=== PATIENT | female | born 1965 | race Caucasian/White ===

== ENCOUNTER → 2017-03-29 | Outpatient (CLI) | payer BC ==
[2017-03-29 10:12] LABS: Basophils # (A) 0.1 k/uL (0-0.2); Basophils % (A) 1 %; CHCM 33.3; Eosinophils # (A) 0.2 k/uL (0-0.7); Eosinophils % (A) 3 %; HCT 42.5 % (34.0-46.0); HGB 13.8 gm/dL (11.4-16.0); Luc # (Auto) 0.19; Luc % (Auto) 3; Lymphocytes # (A) 1.9 k/uL (1.0-4.8); Lymphocytes % (A) 25 %; MCH 29.4 pg (25.0-35.0); MCHC 32.4 g/dL (31.0-37.0); MCV 90.5 fL (80.0-100.0); Mean Platelet Volume 6.9; Monocytes # (A) 0.5 k/uL (0-1.0); Monocytes % (A) 7 %; Neutrophils # (A) 4.5 k/uL (1.3-7.7); Neutrophils % (A) 62 %; RBC 4.69 m/uL (3.80-5.40); WBC 7.4 k/uL (3.8-10.6); WBC (Perox) 6.86
[2017-03-29 10:16] LABS: ALT 41 U/L (9-52); AST 19 U/L (14-36); Alkaline Phosphatase 111 U/L (38-126); Anion Gap 11 mmol/L; Blood Urea Nitrogen 17 mg/dL (7-17); C Reactive Protein 22.6 mg/L (<10.0); Calcium 10.5 mg/dL (8.4-10.2); Carbon Dioxide 28 mmol/L (22-30); Chloride 102 mmol/L (98-107); Cholesterol 192 mg/dL (<200); Glucose 106 mg/dL (74-99); HDL Cholesterol 46 mg/dL (40-60); Non-African American GFR(MDRD) >60 (>60 ml/min/1.73 sqM); Potassium 4.3 mmol/L (3.5-5.1); Sodium 141 mmol/L (137-145); Total Bilirubin 0.7 mg/dL (0.2-1.3); Total Protein 7.4 g/dL (6.3-8.2); Triglycerides 210 mg/dL (<150)
[2017-03-29 10:17] LABS: Rheumatoid Factor, Qnt 35 IU/mL (<12)
[2017-03-29 11:24] LABS: Erythrocyte Sedimentation Rate 13 mm/hr (0-20)
[2017-03-29 17:05] LABS: Urine Creatinine 167.6 mg/dL
[2017-03-30 00:04] LABS: Hemoglobin A1C 5.8 % (4.2-6.1)
[2017-03-31 10:51] LABS: ANA w/Reflex to Titer NEGATIVE (NEGATIVE); Cyclic Citrull Pep IgG Unit <0.5 U/mL; Cyclic Citrullinated Pep IgG NEGATIVE (NEGATIVE)
== END | disposition home or self-care (01) ==
LOC: LABWHC1 09:29
PROVIDERS: ATTEND Internal Medicine
DX: E11.9 Type 2 diabetes mellitus without complications (principal); M06.9 Rheumatoid arthritis, unspecified; E55.9 Vitamin D deficiency, unspecified; E21.3 Hyperparathyroidism, unspecified; R53.83 Other fatigue
CPT/HCPCS: 36415; 80053; 80061; 82043; 82306; 82570; 83036; 83970; 84443; 85025; 85652; 86038; 86140; 86200; 86431

== ENCOUNTER → 2017-08-21 | Outpatient (CLI) | payer BC ==
[2017-08-21 10:25] LABS: Ionized Calcium 5.5 mg/dL (4.5-5.3)
== END | disposition home or self-care (01) ==
LOC: LABWHC1 08:04
PROVIDERS: ATTEND Internal Medicine Endocrinology, Diabetes & Metabolism
DX: E21.0 Primary hyperparathyroidism (principal)
CPT/HCPCS: 36415; 82306; 82310; 82330; 83970

== ENCOUNTER → 2017-11-25 | Outpatient (CLI) | payer BC ==
[2017-11-25 10:16] VITALS: BP 126/88; PULSE 81; TEMP 97.8; BMI 37.9
--- NOTE | 2017-11-25 10:58 | P.HPOB ---
History of Present Illness H&P Date: 11/25/17 Chief Complaint: Patient is here for her routine gynecologic exam and mammogram. This is a 52-year-old with an LMP of 1998. She is status post MARY ANN and left oophorectomy for benign reasons. The patient is without gynecologic complaints. Review of Systems She has lost 12 pounds over the last year. She states this has been after her knee replacement surgery. She denies respiratory, cardiac, or G.I. problems. Past Medical History Past Medical History: Hypertension, Rheumatoid Arthritis (RA) Additional Past Medical History / Comment(s): Pre-diabetic, borderline sleep apnea-no tx. for, glaucoma, elevated calcium due to hyperparathyroidism, recent trouble w/elevated heart rate but PCP put her on xanax & is much better per pt. , current tx. for UTI History of Any Multi-Drug Resistant Organisms: None Reported Past Surgical History: Appendectomy, Cholecystectomy, Hysterectomy, Joint Replacement (Left knee replacement in 2017), Orthopedic Surgery, Tubal Ligation Additional Past Surgical History / Comment(s): tubal reversal & then another tubal, arthroscopy knee, carpal tunnel repair Additional Past Anesthesia/Blood Transfusion Reaction / Comment(s): slow to wake up, hx. of "fever" after 2 surgeries-once as kid, other w/6 hour tubal reversal-low grade temp., thought was from anesthesia, has never heard of malignant hyperthermia & no family hx. of, mom has low O2 sats after surg. Past Psychological History: No Psychological Hx Reported Smoking Status: Never smoker Past Alcohol Use History: Rare (5 per year) Past Drug Use History: None Reported - Past Family History Mother Family Medical History: Cancer (Breast cancer at age 78.) Additional Family Medical History / Comment(s): breast cancer Father Family Medical History: COPD, Dementia Additional Family Medical History / Comment(s): Parkinson's disease Medications and Allergies Home Medications Medication Instructions Recorded Confirmed Type Acetaminophen Tab [Tylenol Tab] 1,000 mg PO Q6HR PRN 11/11/15 11/25/17 History Cetirizine HCl [Zyrtec] 10 mg PO DAILY 11/11/15 11/25/17 History Cholecalciferol [Vitamin D3] 2,000 unit PO DAILY 11/11/15 11/25/17 History Hydroxychloroquine Sulfate 200 mg PO BID 11/11/15 11/25/17 History [Plaquenil] Losartan Potassium [Cozaar] 100 mg PO DAILY 11/11/15 11/25/17 History amLODIPine [Norvasc] 5 mg PO DAILY 11/11/15 11/25/17 History metFORMIN HCL [Glucophage Xr] 500 mg PO BID 11/11/15 11/25/17 History Famotidine [Pepcid] 20 mg PO DAILY 08/22/17 11/25/17 History Furosemide [Lasix] 20 mg PO DAILY 08/22/17 11/25/17 History Timolol 0.5% Ophth Soln [Timoptic 1 drop BOTH EYES BID 08/22/17 11/25/17 History 0.5% Ophth Soln] Metoprolol Tartrate 0.5 tab PO DAILY 11/25/17 11/25/17 History Allergies Allergy/AdvReac Type Severity Reaction Status Date / Time shellfish derived [Shellfish] Allergy Anaphylaxis Verified 11/25/17 10:19 venom-honey bee Allergy Anaphylaxis Verified 11/25/17 10:19 [bee venom (honey bee)] codeine AdvReac Nausea & Verified 11/25/17 10:19 Vomiting labetalol AdvReac "pinging Verified 11/25/17 10:19 in head" metal brittany AdvReac fever Uncoded 11/25/17 10:19 Exam - Vital Signs Vital signs: Vital Signs Temp Pulse BP 11/25/17 10:06 97.8 F 81 126/88 Intake and Output 11/24/17 11/25/17 11/25/17 22:59 06:59 14:59 Other: Weight 103.419 kg Height 5'5", BMI 37.9. This is a well-developed well-nourished white female who is alert and oriented times 3 in no acute distress. HEENT: Within normal limits. NECK: Supple without mass or thyromegaly. CHEST AND LUNGS: Clear to auscultation. HEART: Regular rate and rhythm. BREASTS: Are without mass or discharge. AXILLARY EXAM: Negative for adenopathy. BACK: Negative for CVA tenderness. ABDOMEN: Soft, nontender, without palpable masses. PELVIC EXAM: External genitalia appears normal with minimal atrophy. Vagina appears normal with minimal atrophy. There is no evidence of prolapse. Bimanual examination is negative for mass or tenderness. RECTAL EXAM: Rectovaginal exam is negative for mass or tenderness and is negative for occult blood. EXTREMITIES: Nontender. IMPRESSION: 1. 52-year-old menopausal females with status post MARY ANN and left oophorectomy for benign reasons. 2. History of osteopenia PLAN: 1. Pap smears have been discontinued 2. Self breast examination was discussed. 3. Screening mammogram will be done today. 4. Osteoporosis prevention was discussed. Bone density testing will be done through Dr. Cindy Zaldivar as she has done in the past. 5. I have recommended screening colonoscopy based on her age. She states she will discuss this with Dr. Anaya. 6. She will return in one year.
--- NOTE | 2017-11-26 09:39 | MM ---
Reason for exam: screening (asymptomatic). Last mammogram was performed 1 year and 4 months ago. History: Family history of breast cancer in mother at age 79. Physical Findings: A clinical breast exam by your physician is recommended on an annual basis and results should be correlated with mammographic findings. MG 3D Screening Mammo W/Cad Bilateral CC and MLO view(s) were taken. Prior study comparison: August 07, 2016, bilateral MG 3d screening mammo w/cad. May 26, 2015, bilateral MG screening mammo w CAD. There are scattered fibroglandular densities. No significant changes when compared with prior studies. ASSESSMENT: Negative, BI-RAD 1 RECOMMENDATION: Routine screening mammogram of both breasts in 1 year.
== END | disposition home or self-care (01) ==
LOC: WWCWWP 09:58
PROVIDERS: ATTEND Obstetrics & Gynecology
DX: Z12.31 Encounter for screening mammogram for malignant neoplasm of breast (principal)
CPT/HCPCS: 77063; 77067

== ENCOUNTER 2017-12-13 22:04 | Emergency (ER) | payer BC ==
[2017-12-13 22:21] VITALS: BP 156/69; PULSE 111; RESP 20; TEMP 97.7
--- NOTE | 2017-12-13 22:39 | ED ---
Eye Problem HPI - General Chief complaint: Eye Problems Stated complaint: Eye Disturbance Time Seen by Provider: 12/13/17 22:26 Source: patient Mode of arrival: ambulatory Limitations: no limitations - History of Present Illness Initial comments: 52-year-old female patient with a past medical history significant for glaucoma reports to emergency department today for evaluation of floaters and flashes in her vision. Patient states that she started to have an increased amount of floaters in both eyes yesterday. States that tonight around 8 PM she started experiencing flashes in the left eye in the left peripheral visual field. Patient states that she did see her care transport nurse approximate 3 weeks ago and her pressure in the left eye was 22. Patient states that she was starting had Timoptic and has been use this medication as directed. Patient denies any pain or pressure feeling in the eye. She denies any headache, dizziness, weakness, nausea, or vomiting. She denies any blurred or double vision. Patient denies any recent rash, fever, chills, shortness breath, chest pain, abdominal pain, diarrhea, constipation, back pain, numbness, tingling, hematuria, dysuria, urinary urgency, urinary frequency, or any other complaints. - Related Data Home Medications Medication Instructions Recorded Confirmed Acetaminophen Tab [Tylenol Tab] 1,000 mg PO Q6HR PRN 11/11/15 12/13/17 Cetirizine HCl [Zyrtec] 10 mg PO DAILY 11/11/15 12/13/17 Cholecalciferol [Vitamin D3] 2,000 unit PO DAILY 11/11/15 12/13/17 Hydroxychloroquine Sulfate 200 mg PO BID 11/11/15 12/13/17 [Plaquenil] Losartan Potassium [Cozaar] 100 mg PO DAILY 11/11/15 12/13/17 amLODIPine [Norvasc] 5 mg PO DAILY 11/11/15 12/13/17 metFORMIN HCL [Glucophage Xr] 500 mg PO BID 11/11/15 12/13/17 Famotidine [Pepcid] 20 mg PO DAILY 08/22/17 12/13/17 Furosemide [Lasix] 20 mg PO DAILY 08/22/17 12/13/17 Timolol 0.5% Ophth Soln [Timoptic 1 drop BOTH EYES BID 08/22/17 12/13/17 0.5% Ophth Soln] Metoprolol Tartrate 0.5 tab PO DAILY 11/25/17 12/13/17 Allergies Allergy/AdvReac Type Severity Reaction Status Date / Time shellfish derived [Shellfish] Allergy Anaphylaxis Verified 12/13/17 22:21 venom-honey bee Allergy Anaphylaxis Verified 12/13/17 22:21 [bee venom (honey bee)] codeine AdvReac Nausea & Verified 12/13/17 22:21 Vomiting labetalol AdvReac "pinging Verified 12/13/17 22:21 in head" metal brittany AdvReac fever Uncoded 12/13/17 22:21 Review of Systems ROS Statement: Those systems with pertinent positive or pertinent negative responses have been documented in the HPI. ROS Other: All systems not noted in ROS Statement are negative. Past Medical History Past Medical History: Hypertension, Rheumatoid Arthritis (RA) Additional Past Medical History / Comment(s): Pre-diabetic, borderline sleep apnea-no tx. for, glaucoma, elevated calcium due to hyperparathyroidism, recent trouble w/elevated heart rate but PCP put her on xanax & is much better per pt. , current tx. for UTI History of Any Multi-Drug Resistant Organisms: MRSA Date of last positivie culture/infection: 2016 MDRO Source:: left knee Past Surgical History: Appendectomy, Cholecystectomy, Hysterectomy, Joint Replacement, Orthopedic Surgery, Tubal Ligation Additional Past Surgical History / Comment(s): tubal reversal & then another tubal, arthroscopy knee, carpal tunnel repair Additional Past Anesthesia/Blood Transfusion Reaction / Comment(s): slow to wake up, hx. of "fever" after 2 surgeries-once as kid, other w/6 hour tubal reversal-low grade temp., thought was from anesthesia, has never heard of malignant hyperthermia & no family hx. of, mom has low O2 sats after surg. Past Psychological History: No Psychological Hx Reported Smoking Status: Never smoker Past Alcohol Use History: Rare Past Drug Use History: None Reported - Past Family History Mother Family Medical History: Cancer (Breast cancer at age 78.) Additional Family Medical History / Comment(s): breast cancer Father Family Medical History: COPD, Dementia Additional Family Medical History / Comment(s): Parkinson's disease General Exam Limitations: no limitations General appearance: alert, in no apparent distress, anxious, other (This is a well-developed, well-nourished adult female patient in no acute distress. Vital signs upon presentation are temperature 97.7F, pulse 111, respirations 20 , blood pressure 156/69, pulse ox 98% on room air.) Eye exam: Present: normal appearance, PERRL, EOMI, other (Funduscopic examination with ophthalmoscope appears within normal limits with this limited exam. Pressure to the left eye was 15-16, pressure to the right eye was 9-10.) . Absent: scleral icterus, conjunctival injection, nystagmus, periorbital swelling Respiratory exam: Present: normal lung sounds bilaterally. Absent: respiratory distress, wheezes, rales, rhonchi, stridor Cardiovascular Exam: Present: regular rate, normal rhythm, normal heart sounds. Absent: systolic murmur, diastolic murmur, rubs, gallop, clicks Neurological exam: Present: alert, oriented X3, CN II-XII intact Psychiatric exam: Present: normal affect, normal mood Skin exam: Present: warm, dry, intact, normal color. Absent: rash Course Vital Signs 12/13/17 22:17 Temperature 97.7 F Pulse Rate 111 H Respiratory 20 Rate Blood Pressure 156/69 O2 Sat by Pulse 98 Oximetry Medical Decision Making - Medical Decision Making 52-year-old female patient presents to the emergency department today with chief complaint of visual disturbance. She reported a flashing in the left eye to the left peripheral visual field. She also reported bilateral eye floaters. Physical examination did reveal PERRLA, EOMI, no evidence of proptosis. Funduscopic examination with ophthalmoscope was unremarkable with the limited evaluation. Pressure to the left eye was 15-16, pressure to the right eye was 9 -10. Visual acuity was performed and was 20/40 left, right, and bilaterally. My attending Dr. Pillai did speak to care transport nurse Dr. Rivera who patient sees outpatient for glaucoma. He will see patient in the office tomorrow at 10 AM. Return parameters discussed in detail. Patient verbalizes understanding and agrees with this plan. Disposition Clinical Impression: Visual disturbance Disposition: HOME SELF-CARE Condition: Good Instructions: Visual Floaters (ED) Additional Instructions: Follow-up with Dr. Rivera's office tomorrow morning at 10:00am. Return here immediately for any new, worsening, or concerning symptoms. Referrals: Adeel Anaya MD [Primary Care Provider] - 1-2 days Beth Rivera MD [STAFF PHYSICIAN] - 1-2 days Time of Disposition: 22:59
== END 2017-12-13 23:03 | disposition home or self-care (01) ==
LOC: EC 22:04
DX: H53.9 Unspecified visual disturbance (principal); H40.9 Unspecified glaucoma; I10 Essential (primary) hypertension; M06.9 Rheumatoid arthritis, unspecified; Z79.84 Long term (current) use of oral hypoglycemic drugs; Z79.899 Other long term (current) drug therapy; Z88.5 Allergy status to narcotic agent; Z88.8 Allergy status to other drugs, medicaments and biological substances; Z91.013 Allergy to seafood; Z91.030 Bee allergy status; Z91.048 Other nonmedicinal substance allergy status; Z86.14 Personal history of Methicillin resistant Staphylococcus aureus infection
CPT/HCPCS: 99283

== ENCOUNTER → 2018-06-13 | Outpatient (CLI) | payer BC ==
[2018-06-13 10:41] LABS: ALT 31 U/L (9-52); AST 22 U/L (14-36); Albumin 4.5 g/dL (3.5-5.0); Alkaline Phosphatase 90 U/L (38-126); Anion Gap 9 mmol/L; Blood Urea Nitrogen 17 mg/dL (7-17); Calcium 10.7 mg/dL (8.4-10.2); Carbon Dioxide 27 mmol/L (22-30); Chloride 105 mmol/L (98-107); Glucose 99 mg/dL (74-99); Potassium 4.3 mmol/L (3.5-5.1); Sodium 141 mmol/L (137-145); Total Bilirubin 0.5 mg/dL (0.2-1.3); Total Protein 7.4 g/dL (6.3-8.2)
== END | disposition home or self-care (01) ==
LOC: LABWHC1 09:24
PROVIDERS: ATTEND Internal Medicine
DX: E11.9 Type 2 diabetes mellitus without complications (principal)
CPT/HCPCS: 36415; 80053

== ENCOUNTER → 2019-01-12 | Outpatient (CLI) | payer BC ==
[2019-01-12 10:54] LABS: Basophils # (A) 0.1 k/uL (0-0.2); Basophils % (A) 2 %; Eosinophils # (A) 0.2 k/uL (0-0.7); Eosinophils % (A) 5 %; HCT 45.7 % (34.0-46.0); HGB 14.4 gm/dL (11.4-16.0); Lymphocytes # (A) 1.9 k/uL (1.0-4.8); Lymphocytes % (A) 39 %; MCH 28.6 pg (25.0-35.0); MCHC 31.6 g/dL (31.0-37.0); MCV 90.7 fL (80.0-100.0); Mean Platelet Volume 6.7; Monocytes # (A) 0.3 k/uL (0-1.0); Monocytes % (A) 6 %; Neutrophils # (A) 2.2 k/uL (1.3-7.7); Neutrophils % (A) 47 %; Platelet Count 306 k/uL (150-450); RBC 5.04 m/uL (3.80-5.40); RDW 13.5 % (11.5-15.5); WBC 4.8 k/uL (3.8-10.6)
[2019-01-12 11:00] LABS: Appearance,Urine Cloudy (Clear); Bacteria,Urine Rare /hpf; Bilirubin,Urine Negative (Negative); Blood,Urine Negative (Negative); Color,Urine Yellow; Glucose,Urine (UA) Negative (Negative); Ketones,Urine Negative (Negative); Leukocyte Esterase,Urine Large (Negative); Mucus,Urine Many /hpf; Nitrite,Urine Negative (Negative); Protein,Urine 1+ (Negative); Specific Gravity,Urine 1.029 (1.001-1.035); Squamous Epithelial Cell,Urine 5 /hpf (0-4); Urobilinogen,Urine <2.0 mg/dL (<2.0); WBC,Urine 26 /hpf (0-5)
[2019-01-12 11:18] LABS: Ionized Calcium 5.8 mg/dL (4.5-5.3)
[2019-01-12 18:06] LABS: Parathyroid Hormone Intact 125.8 pg/mL (14.0-72.0)
[2019-01-12 18:41] LABS: Vitamin D 25 Hydroxy 21.3 ng/mL (30.0-100.0)
[2019-01-12 18:43] LABS: Albumin 4.8 g/dL (3.80-4.90); Albumin/Globulin Ratio 2.18 (1.60-3.17); Anion Gap 8.5 mmol/L (4.00-12.00); Calcium 10.8 mg/dL (8.7-10.3); Carbon Dioxide 26.5 mmol/L (21.6-31.8); Globulin 2.2 g/dL (1.6-3.3); LDL Cholesterol,Calculated 84.8 mg/dL (0.0-131.0); Potassium 4.6 mmol/L (3.5-5.5); Total Bilirubin 0.7 mg/dL (0.2-1.2); VLDL Calculation 28.2 mg/dL (5.00-40.00)
== END | disposition home or self-care (01) ==
LOC: LABWHC1 10:11
PROVIDERS: ATTEND Internal Medicine
DX: E21.3 Hyperparathyroidism, unspecified (principal); I10 Essential (primary) hypertension; E55.9 Vitamin D deficiency, unspecified; E66.9 Obesity, unspecified
CPT/HCPCS: 36415; 80053; 80061; 81001; 82306; 82330; 83970; 84443; 85025

== ENCOUNTER 2019-01-17 11:22 | Emergency (ER) | payer BC ==
[2019-01-17 11:28] VITALS: RESP 18
[2019-01-17] MEDS ORDERED: SODIUM CHLORIDE 0.9% 1,000 ML IV STA (12:05)
[2019-01-17] MEDS ORDERED: KETOROLAC 30 MG/ML 1 ML VIAL IVP STA (12:05)
--- NOTE | 2019-01-17 12:11 | ED ---
General Adult HPI - General Chief complaint: Abdominal Pain Stated complaint: Poss ovarian cyst Time Seen by Provider: 01/17/19 11:36 Source: patient, RN notes reviewed Mode of arrival: ambulatory Limitations: no limitations - History of Present Illness Initial comments: 53-year-old female with a past medical history of hypertension, ovarian cysts, urinary tract infections presents to the emergency department for chief complaint of right lower quadrant pain. Patient states that she felt this pain about one week ago and it lasted for 12 hours. She said it then resolves but started again last night around 11 PM and has persisted through today. She states it is a sharp pain in her right lower quadrant. Denies fevers or chills. She does admit to diarrhea intermittently over the past 3 months. Denies nausea or vomiting. Denies fevers or chills. Patient does have a history of cholecystectomy as well as appendectomy. - Related Data Home Medications Medication Instructions Recorded Confirmed Acetaminophen Tab [Tylenol Tab] 1,000 mg PO Q6HR PRN 11/11/15 12/13/17 Cetirizine HCl [Zyrtec] 10 mg PO DAILY 11/11/15 12/13/17 Cholecalciferol [Vitamin D3] 2,000 unit PO DAILY 11/11/15 12/13/17 Hydroxychloroquine Sulfate 200 mg PO BID 11/11/15 12/13/17 [Plaquenil] Losartan Potassium [Cozaar] 100 mg PO DAILY 11/11/15 12/13/17 amLODIPine [Norvasc] 5 mg PO DAILY 11/11/15 12/13/17 metFORMIN HCL [Glucophage Xr] 500 mg PO BID 11/11/15 12/13/17 Famotidine [Pepcid] 20 mg PO DAILY 08/22/17 12/13/17 Furosemide [Lasix] 20 mg PO DAILY 08/22/17 12/13/17 Timolol 0.5% Ophth Soln [Timoptic 1 drop BOTH EYES BID 08/22/17 12/13/17 0.5% Ophth Soln] Metoprolol Tartrate 0.5 tab PO DAILY 11/25/17 12/13/17 Allergies Allergy/AdvReac Type Severity Reaction Status Date / Time shellfish derived [Shellfish] Allergy Anaphylaxis Verified 01/17/19 11:27 venom-honey bee Allergy Anaphylaxis Verified 01/17/19 11:27 [bee venom (honey bee)] codeine AdvReac Nausea & Verified 01/17/19 11:27 Vomiting labetalol AdvReac "pinging Verified 01/17/19 11:27 in head" metal brittany AdvReac fever Uncoded 01/17/19 11:27 Review of Systems ROS Statement: Those systems with pertinent positive or pertinent negative responses have been documented in the HPI. ROS Other: All systems not noted in ROS Statement are negative. Past Medical History Past Medical History: Hypertension, Rheumatoid Arthritis (RA) Additional Past Medical History / Comment(s): Pre-diabetic, borderline sleep apnea-no tx. for, glaucoma, elevated calcium due to hyperparathyroidism, recent trouble w/elevated heart rate but PCP put her on xanax & is much better per pt., current tx. for UTI History of Any Multi-Drug Resistant Organisms: MRSA Date of last positivie culture/infection: 2016 MDRO Source:: left knee Past Surgical History: Appendectomy, Cholecystectomy, Hysterectomy, Joint Replacement, Orthopedic Surgery, Tubal Ligation Additional Past Surgical History / Comment(s): tubal reversal & then another tubal, arthroscopy knee, carpal tunnel repair, knee repla Additional Past Anesthesia/Blood Transfusion Reaction / Comment(s): slow to wake up, hx. of "fever" after 2 surgeries-once as kid, other w/6 hour tubal reversal- low grade temp., thought was from anesthesia, has never heard of malignant hyperthermia & no family hx. of, mom has low O2 sats after surg. Past Psychological History: No Psychological Hx Reported Smoking Status: Never smoker Past Alcohol Use History: Rare Past Drug Use History: None Reported - Past Family History Mother Family Medical History: Cancer (Breast cancer at age 78.) Additional Family Medical History / Comment(s): breast cancer Father Family Medical History: COPD, Dementia Additional Family Medical History / Comment(s): Parkinson's disease General Exam Limitations: no limitations General appearance: alert, in no apparent distress Head exam: Present: atraumatic, normocephalic, normal inspection Eye exam: Present: normal appearance, PERRL, EOMI. Absent: scleral icterus, conjunctival injection, periorbital swelling ENT exam: Present: normal exam, mucous membranes moist Neck exam: Present: normal inspection, full ROM. Absent: tenderness, m eningismus, lymphadenopathy Respiratory exam: Present: normal lung sounds bilaterally. Absent: respiratory distress, wheezes, rales, rhonchi, stridor Cardiovascular Exam: Present: regular rate, normal rhythm, normal heart sounds. Absent: systolic murmur, diastolic murmur, rubs, gallop, clicks GI/Abdominal exam: Present: soft, tenderness (RLQ tenderness without rebound or guarding), normal bowel sounds. Absent: distended, guarding, rebound, rigid Neurological exam: Present: alert, oriented X3, CN II-XII intact Psychiatric exam: Present: normal affect, normal mood Course Vital Signs 01/17/19 01/17/19 11:25 14:31 Temperature 98.1 F 98.3 F Pulse Rate 100 97 Respiratory 18 18 Rate Blood Pressure 131/86 116/72 O2 Sat by Pulse 97 95 Oximetry Medical Decision Making - Medical Decision Making 53-year-old female presents for right-sided abdominal pain. He states this has been going on since last night around 11 PM. Exam is unremarkable, mild te nderness in the right lower quadrant but no guarding or rebound. Vitals are stable. CBC CMP unremarkable. Calcium is 10.9 which she states is her normal. CT shows a collapse of the left side of the colon that makes it difficult to exclude colitis, however no fevers or chills. Patient does have some diarrhea but no significant left sided abdominal pain. She also has a 4 mm nonobstructing calculus in the lower pole of the kidney on the right side which was discussed as well as degenerative changes in the spine and hips. Patient was concerned for ovarian cyst or mass as she does have a right ovary after her hysterectomy. However CAT scan did not visualize this. Discussed these results with patient and she does feel reassured. States she was concerned there could be "a mass or something". The patient was here more for reassurance and she is feeling much better at this time. Pain possibly related to right hip arthritis. However I do not see any emergent causes of abdominal pain at this time. Pain was decreased from a 6 to a 3. Patient feels comfortable going home and reques ting follow-up with primary care. She will return here if she has any worsening symptoms. - Lab Data Result diagrams: 01/17/19 12:17 01/17/19 12:17 Lab Results 01/17/19 01/17/19 01/17/19 Range/Units 12:17 12:17 12:17 WBC 4.8 (3.8-10.6) k/uL RBC 4.71 (3.80-5.40) m/uL Hgb 14.0 (11.4-16.0) gm/dL Hct 42.0 (34.0-46.0) % MCV 89.2 (80.0-100.0) fL MCH 29.8 (25.0-35.0) pg MCHC 33.4 (31.0-37.0) g/dL RDW 12.8 (11.5-15.5) % Plt Count 274 (150-450) k/uL Neutrophils % 49 % Lymphocytes % 38 % Monocytes % 8 % Eosinophils % 2 % Basophils % 1 % Neutrophils # 2.4 (1.3-7.7) k/uL Lymphocytes # 1.8 (1.0-4.8) k/uL Monocytes # 0.4 (0-1.0) k/uL Eosinophils # 0.1 (0-0.7) k/uL Basophils # 0.1 (0-0.2) k/uL Sodium 140 (137-145) mmol/L Potassium 4.4 (3.5-5.1) mmol/L Chloride 107 (98-107) mmol/L Carbon Dioxide 27 (22-30) mmol/L Anion Gap 6 mmol/L BUN 14 (7-17) mg/dL Creatinine 0.65 (0.52-1.04) mg/dL Est GFR (CKD-EPI)AfAm >90 (>60 ml/min/1.73 sqM) Est GFR (CKD-EPI)NonAf >90 (>60 ml/min/1.73 sqM) Glucose 92 (74-99) mg/dL Calcium 10.9 H (8.4-10.2) mg/dL Total Bilirubin 0.7 (0.2-1.3) mg/dL AST 22 (14-36) U/L ALT 28 (9-52) U/L Alkaline Phosphatase 90 (38-126) U/L Total Protein 7.3 (6.3-8.2) g/dL Albumin 4.6 (3.5-5.0) g/dL Amylase 59 (30-110) U/L Lipase 130 (23-300) U/L Urine Color Yellow Urine Appearance Clear (Clear) Urine pH 5.5 (5.0-8.0) Ur Specific Lyons 1.030 (1.001-1.035) Urine Protein 1+ H (Negative) Urine Glucose (UA) Negative (Negative) Urine Ketones Negative (Negative) Urine Blood Negative (Negative) Urine Nitrite Negative (Negative) Urine Bilirubin Negative (Negative) Urine Urobilinogen <2.0 (<2.0) mg/dL Ur Leukocyte Esterase Trace H (Negative) Urine RBC 1 (0-5) /hpf Urine WBC 3 (0-5) /hpf Ur Squamous Epith Cells 2 (0-4) /hpf Urine Mucus Few H (None) /hpf Disposition Clinical Impression: Abdominal pain Disposition: HOME SELF-CARE Condition: Good Instructions (If sedation given, give patient instructions): Abdominal Pain (ED) Additional Instructions: Please take Motrin or Tylenol for pain. Please follow-up with primary care in 1-2 days. Return here to the emergency department if you have any worsening symptoms. Is patient prescribed a controlled substance at d/c from ED?: No Referrals: Adeel Anaya MD [Primary Care Provider] - 1-2 days Time of Disposition: 14:37
[2019-01-17] MEDS ORDERED: diphenhydrAMINE 50 MG/ML 1 ML VIAL IVP STA (12:19)
[2019-01-17] MEDS ORDERED: methylPREDNISolone SOD SUCCI 125 MG/2 ML VIAL IV STA (12:19)
[2019-01-17] MEDS ORDERED: FAMOTIDINE 20 MG/2 ML VIAL IV STA (12:20)
[2019-01-17 12:35] LABS: Basophils # (A) 0.1 k/uL (0-0.2); Basophils % (A) 1 %; Eosinophils # (A) 0.1 k/uL (0-0.7); Eosinophils % (A) 2 %; Lymphocytes # (A) 1.8 k/uL (1.0-4.8); Lymphocytes % (A) 38 %; MCH 29.8 pg (25.0-35.0); MCHC 33.4 g/dL (31.0-37.0); MCV 89.2 fL (80.0-100.0); Mean Platelet Volume 6.5; Monocytes # (A) 0.4 k/uL (0-1.0); Monocytes % (A) 8 %; Neutrophils # (A) 2.4 k/uL (1.3-7.7); Neutrophils % (A) 49 %; Platelet Count 274 k/uL (150-450); RBC 4.71 m/uL (3.80-5.40); RDW 12.8 % (11.5-15.5); WBC 4.8 k/uL (3.8-10.6)
[2019-01-17 12:43] LABS: Appearance,Urine Clear (Clear); Bilirubin,Urine Negative (Negative); Blood,Urine Negative (Negative); Color,Urine Yellow; Glucose,Urine (UA) Negative (Negative); Ketones,Urine Negative (Negative); Leukocyte Esterase,Urine Trace (Negative); Mucus,Urine Few /hpf; Nitrite,Urine Negative (Negative); PH, Urine 5.5 (5.0-8.0); Protein,Urine 1+ (Negative); RBC,Urine 1 /hpf (0-5); Squamous Epithelial Cell,Urine 2 /hpf (0-4); Urobilinogen,Urine <2.0 mg/dL (<2.0); WBC,Urine 3 /hpf (0-5)
[2019-01-17 12:48] LABS: ALT 28 U/L (9-52); AST 22 U/L (14-36); Albumin 4.6 g/dL (3.5-5.0); Alkaline Phosphatase 90 U/L (38-126); Amylase 59 U/L (30-110); Anion Gap 6 mmol/L; Blood Urea Nitrogen 14 mg/dL (7-17); Calcium 10.9 mg/dL (8.4-10.2); Carbon Dioxide 27 mmol/L (22-30); Chloride 107 mmol/L (98-107); Glucose 92 mg/dL (74-99); Lipase 130 U/L (23-300); Potassium 4.4 mmol/L (3.5-5.1); Sodium 140 mmol/L (137-145); Total Bilirubin 0.7 mg/dL (0.2-1.3); Total Protein 7.3 g/dL (6.3-8.2)
--- NOTE | 2019-01-17 14:00 | CT ---
EXAMINATION TYPE: CT abdomen pelvis w con DATE OF EXAM: 01/17/2019 REFERENCE: NONE HISTORY: RLQ pain, diarrhea, h/o ovarian cysts+appendectomy HISTORY: Right lower quadrant pain with diarrhea CT DLP: 1296.1 mGy Automated exposure control for dose reduction was used. TECHNIQUE: Helical acquisition through the abdomen and pelvis was obtained following the oral ingesti on of without Oral Contrast and following intravenous administration of 100 mL of Isovue 300. The sabiha a was reformatted in axial, coronal and sagittal projections. FINDINGS: Visualized portions of the lungs are clear. There is no pleural or pericardial fluid. The heart is not enlarged. Within the abdomen, the gallbladder is been removed. The liver and spleen are normal. A small splenul e is noted anterior to the tip of the spleen. Both adrenal glands are normal. The pancreas is unremarkable. There is a 4 mm, nonobstructing calculus in the anterior lower pole calyx of the right kidney. The le ft kidney appears normal. There is no significant retroperitoneal, iliac or inguinal adenopathy. The bladder is unremarkable. The uterus and ovaries are not visualized. The left side of the colon is collapsed. This makes it difficult to assess colonic wall thickening. T he appendix is not visualized. Small bowel loops are normal in caliber. There is no free fluid and no free air. There are mild degenerative changes within the hips. There is facet arthropathy at L5-S1. There is mi ld hypertrophic spondylosis in the lower dorsal spine. IMPRESSION: 1. COLLAPSE OF THE LEFT SIDE OF THE COLON MAKES IT DIFFICULT TO EXCLUDE BOWEL WALL THICKENING. PLEASE CORRELATE CLINICALLY TO EXCLUDE COLITIS. 2. 4 MM NONOBSTRUCTING CALCULUS IN THE ANTERIOR LOWER POLE CALYX OF THE RIGHT KIDNEY. 3. MILD DEGENERATIVE CHANGES IN THE SPINE.
[2019-01-17 14:35] VITALS: BP 116/72; PULSE 97; TEMP 98.3
== END 2019-01-17 14:44 | disposition home or self-care (01) ==
LOC: EC 11:22
DX: N20.0 Calculus of kidney (principal); R19.7 Diarrhea, unspecified; M47.9 Spondylosis, unspecified; M16.0 Bilateral primary osteoarthritis of hip; I10 Essential (primary) hypertension; H40.9 Unspecified glaucoma; M06.9 Rheumatoid arthritis, unspecified; Z87.42 Personal history of other diseases of the female genital tract; Z87.440 Personal history of urinary (tract) infections; Z86.14 Personal history of Methicillin resistant Staphylococcus aureus infection; Z90.49 Acquired absence of other specified parts of digestive tract; Z90.710 Acquired absence of both cervix and uterus; Z96.659 Presence of unspecified artificial knee joint; Z98.51 Tubal ligation status; Z79.84 Long term (current) use of oral hypoglycemic drugs; Z79.899 Other long term (current) drug therapy; Z91.013 Allergy to seafood; Z91.030 Bee allergy status; Z88.5 Allergy status to narcotic agent; Z88.2 Allergy status to sulfonamides; Z91.048 Other nonmedicinal substance allergy status
CPT/HCPCS: 36415; 80053; 82150; 83690; 85025; 81001; 74177; 99284; 96374; 96375 ×3; 96361 ×2; J1200; J2930; J1885; Q9967

== ENCOUNTER → 2019-02-02 | Outpatient (CLI) | payer BC ==
[2019-02-02 14:25] VITALS: BP 114/80; PULSE 102; RESP 16; TEMP 98.2; BMI 38.7
--- NOTE | 2019-02-03 09:09 | WWHP ---
[facility] - HISTORY AND PHYSICAL DATE OF DICTATION: 02/02/2019 CHIEF COMPLAINT: The patient is here for her routine gynecologic exam and mammogram. HPI: This is a 54-year-old, G5, P4-0-1-4 with an LMP of 1998. The patient is status post MARY ANN and left oophorectomy for benign reasons. The patient is without gynecologic complaints. She states she was in the emergency room for abdominal and back pain and was found to have a kidney stone. She states her ovary was not seen on the CT scan at that time. She states her symptoms have improved. PAST MEDICAL HISTORY: Rheumatoid arthritis, chronic hypertension, gastroesophageal reflux disease, fibromyalgia, parathyroid problems, seasonal allergies, glaucoma and liver problems that was felt to be related to Celebrex use, also hyperlipidemia and osteopenia. MEDICATIONS: Please see the medications listed in Allocab. ALLERGIES: Allergies to CODEINE, SULFA, and BEE STINGS. PAST SURGICAL HISTORY: MARY ANN with left oophorectomy, right salpingectomy and appendectomy in 1998. Also, laser eye surgery, tubal ligation, cholecystectomy, carpal tunnel surgery, knee arthroscopic surgery and termination of in the past. Also, foot surgery. SOCIAL HISTORY: She denies tobacco and drug use and has about 3 alcohol containing drinks per year. She has been since 1993 and this is her second marriage. She watches 2 of her grandchildren. She otherwise does not work outside the home. FAMILY HISTORY: Please see Allocab. REVIEW OF SYSTEMS: She has gained about 6 pounds over the last year. She denies respiratory, cardiac or GI problems. PHYSICAL EXAMINATION: Blood pressure 114/80. Height 5 feet 5 inches, weight 233 pounds. Temperature 98.2, pulse 102, pulse oximeter 96%. BMI is 38.7. This is a well-developed, heavyset white female, who is alert and oriented x3, in no acute distress. HEENT is within normal limits. NECK: Supple without mass or thyromegaly. CHEST AND LUNGS: Clear to auscultation. HEART: Regular rate and rhythm. Breasts are without mass or discharge. Axillary exam is negative for adenopathy. BACK: Negative for CVA tenderness. ABDOMEN: Obese, soft, nontender, without palpable masses. PELVIC EXAM: External genitalia reveals mild atrophy without lesions. Vagina reveals mild atrophy without lesions. There is no evidence of prolapse. Bimanual exam is negative for mass or tenderness. Rectovaginal exam is negative for mass or tenderness and is negative for occult blood. EXTREMITIES: Nontender. IMPRESSION: 1. A 54-year-old menopausal female, status post MARY ANN and left oophorectomy done for benign reasons with normal gynecologic exam. 2. History of osteopenia. PLAN: 1. Pap smears have been discontinued. 2. Self breast awareness was discussed with the patient. 3. Screening mammogram will be done today. 4. Osteoporosis prevention was discussed. 5. Bone density testing will be done today. 6. I have recommended screening colonoscopy based on her age. She states she will discuss this with Dr. Anaya. 7. She will return in 1 year for her annual well-woman exam. MMODL / IJN: [id number] /
--- NOTE | 2019-02-03 10:59 | MM ---
Reason for exam: screening (asymptomatic). Last mammogram was performed 1 year and 2 months ago. History: Family history of breast cancer in mother at age 79. Physical Findings: A clinical breast exam by your physician is recommended on an annual basis and results should be correlated with mammographic findings. MG 3D Screening Mammo W/Cad Bilateral CC and MLO view(s) were taken. Prior study comparison: November 25, 2017, bilateral MG 3d screening mammo w/cad. August 07, 2016, bilateral MG 3d screening mammo w/cad. The breast tissue is heterogeneously dense. This may lower the sensitivity of mammography. There are benign appearing multiple similar round oval circumscribed masses most characteristic of cysts. No suspicious abnormality. ASSESSMENT: Benign, BI-RAD 2 RECOMMENDATION: Routine screening mammogram of both breasts in 1 year.
--- NOTE | 2019-02-03 12:15 | BD ---
EXAMINATION TYPE: Axial Bone Density DATE OF EXAM: 02/03/2019 COMPARISON: 2016 CLINICAL HISTORY: post menopausal Height: 5'4 1/2 Weight: 231 FRAX RISK QUESTIONS: History of Fracture in Adulthood: y Secondary Osteoporosis: 3. Menopause before 45: partial hysterectomy age 34 Rheumatoid Arthritis: y RISK FACTORS HISTORY OF: Family History of Osteoporosis: y Postmenopausal woman: y MEDICATIONS: Prednisone or other steroids: y How Lon months Additional Medications: Vitamin D, blood pressure, RA meds , ;ipitor Additional History: EXAM MEASUREMENTS: Bone mineral densitometry was performed using the [employer] System. Bone mineral density as measured about the Lumbar spine is: ----- L1-L4(G/cm2): 1.027 T Score Values are as follows: ----- L2: -1.8 ----- L3: -1.0 ----- L4: -1.3 ----- L1-L4: -1.3 Bone mineral density has: Increased 2.7% since study of: 09/29/2015 Bone mineral density about the R hip (g/cm2): 0.780 Bone mineral density about the L hip (g/cm2): 0.765 T Score values are as follows: -----R Neck: -1.9 -----L Neck: -2.0 -----R Total: -1.9 -----L Total: -1.8 Bone mineral density has: Decreased -10.1% since study of: 09/29/2015 IMPRESSION: Osteopenia (T Score between -2.5 and -1). There is slightly increased risk of fracture and the patient may be considered for treatment. Re-Screen 2-5 years. NOTE: T-SCORE=SD OF THE YOUNG ADULT MEAN.
== END | disposition home or self-care (01) ==
LOC: WWCWWP 13:53
PROVIDERS: ATTEND Obstetrics & Gynecology
DX: Z12.31 Encounter for screening mammogram for malignant neoplasm of breast (principal); M85.851 Other specified disorders of bone density and structure, right thigh; M85.852 Other specified disorders of bone density and structure, left thigh; M85.88 Other specified disorders of bone density and structure, other site; Z78.0 Asymptomatic menopausal state
CPT/HCPCS: 77063; 77067; 77080

== ENCOUNTER 2019-03-19 19:36 | Emergency (ER) | payer OTHER, BC ==
[2019-03-19 20:34] VITALS: BP 126/82; PULSE 108; RESP 20; TEMP 98.8
[2019-03-19] MEDS ORDERED: HYDROcodone/APAP 7.5-325MG 1 EACH TAB PO ONE (21:54)
[2019-03-19] MEDS ORDERED: diphenhydrAMINE 50 MG/ML 1 ML VIAL IVP STA (21:56)
[2019-03-19] MEDS ORDERED: FAMOTIDINE 20 MG/2 ML VIAL IV STA (21:56)
[2019-03-19] MEDS ORDERED: methylPREDNISolone SOD SUCCI 125 MG/2 ML VIAL IV STA (21:56)
[2019-03-19 22:22] LABS: Appearance,Urine Clear (Clear); Bilirubin,Urine Negative (Negative); Blood,Urine Negative (Negative); Calcium Oxalate Crystals,Urine Rare /hpf; Color,Urine Yellow; Glucose,Urine (UA) Negative (Negative); Ketones,Urine Negative (Negative); Leukocyte Esterase,Urine Trace (Negative); Mucus,Urine Occasional /hpf; Nitrite,Urine Negative (Negative); PH, Urine 5.5 (5.0-8.0); Protein,Urine 1+ (Negative); RBC,Urine 1 /hpf (0-5); Specific Gravity,Urine 1.024 (1.001-1.035); Squamous Epithelial Cell,Urine 2 /hpf (0-4); Urobilinogen,Urine <2.0 mg/dL (<2.0); WBC,Urine 4 /hpf (0-5)
[2019-03-19 22:47] LABS: Basophils # (A) 0.1 k/uL (0-0.2); Basophils % (A) 1 %; Eosinophils # (A) 0.2 k/uL (0-0.7); Eosinophils % (A) 3 %; HCT 41.7 % (34.0-46.0); HGB 13.7 gm/dL (11.4-16.0); Lymphocytes # (A) 2.3 k/uL (1.0-4.8); Lymphocytes % (A) 29 %; MCHC 32.8 g/dL (31.0-37.0); MCV 88.4 fL (80.0-100.0); Mean Platelet Volume 7.2; Monocytes # (A) 0.7 k/uL (0-1.0); Monocytes % (A) 9 %; Neutrophils # (A) 4.2 k/uL (1.3-7.7); Neutrophils % (A) 54 %; Platelet Count 294 k/uL (150-450); RBC 4.72 m/uL (3.80-5.40); RDW 13.5 % (11.5-15.5); WBC 7.8 k/uL (3.8-10.6)
[2019-03-19 22:55] LABS: INR 0.9 (<1.2); Partial Thromboplastin Time 26.6 sec (22.0-30.0); Prothrombin Time 9.5 sec (9.0-12.0)
[2019-03-19 22:57] LABS: ALT 23 U/L (9-52); AST 31 U/L (14-36); African American GFR (CKD) >90 (>60 ml/min/1.73 sqM); Albumin 4.6 g/dL (3.5-5.0); Alkaline Phosphatase 118 U/L (38-126); Anion Gap 10 mmol/L; Blood Urea Nitrogen 21 mg/dL (7-17); Carbon Dioxide 28 mmol/L (22-30); Chloride 101 mmol/L (98-107); Creatine Kinase 46 U/L (30-135); Glucose 107 mg/dL (74-99); Non-African American GFR(CKD) >90 (>60 ml/min/1.73 sqM); Sodium 139 mmol/L (137-145); Total Bilirubin 0.5 mg/dL (0.2-1.3); Total Protein 7.4 g/dL (6.3-8.2)
--- NOTE | 2019-03-19 23:57 | CT ---
EXAM: CT Abdomen and Pelvis With Intravenous Contrast CLINICAL HISTORY: ITS.REASON CT Reason: trauma TECHNIQUE: Axial computed tomography images of the abdomen and pelvis with intravenous contrast. CTDI is 15.8, 14.5 mGy and DLP is 936.9, 480.1 mGy- cm. This CT exam was performed using one or more of the following dose reduction techniques: automated exposure control, adjustment of the mA and/or kV according to patient size, and/or use of iterative reconstruction technique. Delayed imaging was performed. COMPARISON: CT abdomen and pelvis 01/17/2019. FINDINGS: Lung bases: Unremarkable. No mass. No consolidation. ABDOMEN: Liver: Hemangioma in the right lobe of the liver measuring up to 2.4 cm. Gallbladder and bile ducts: Cholecystectomy. No ductal dilation. Pancreas: Unremarkable. No mass. No ductal dilation. Spleen: Unremarkable. No splenomegaly. Adrenals: Unremarkable. No mass. Kidneys and ureters: Punctate nonobstructing bilateral renal calculi. Subcentimeter hypodensities in the kidneys are too small to characterize. Stomach and bowel: Unremarkable. No obstruction. No mucosal thickening. PELVIS: Appendix: No findings to suggest acute appendicitis. Bladder: Unremarkable. No mass. Reproductive: Unremarkable as visualized. ABDOMEN and PELVIS: Intraperitoneal space: Unremarkable. No free air. No significant fluid collection. Bones/joints: Transitional lumbosacral anatomy with lumbarization of S1. Degenerative changes seen throughout the lumbar spine. No acute fracture. No dislocation. Soft tissues: Unremarkable. Vasculature: Unremarkable. No abdominal aortic aneurysm. Lymph nodes: Unremarkable. No enlarged lymph nodes. IMPRESSION: 1. No acute traumatic abnormality of the abdomen and pelvis. 2. Punctate nonobstructing bilateral renal calculi.
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
--- NOTE | 2019-03-20 00:24 | XR ---
EXAM: XR Left Wrist Complete, 3 or More Views CLINICAL HISTORY: ITS.REASON XR Reason: Pain TECHNIQUE: Frontal, lateral and oblique views of the left wrist. COMPARISON: None. FINDINGS: Bones/joints: Moderate first carpometacarpal joint arthrosis. No acute fracture. No dislocation. Soft tissues: Unremarkable. No radiopaque foreign body. IMPRESSION: No acute osseous abnormality. Consider repeat radiographs in 10-14 days if there is clinical concern for radiographically occult fracture.
--- NOTE | 2019-03-20 00:27 | XR ---
EXAM: XR Left Ankle Complete, 3 or More Views CLINICAL HISTORY: ITS.REASON XR Reason: trauma TECHNIQUE: Frontal, lateral and oblique views of the left ankle. COMPARISON: None. FINDINGS: Bones/joints: Plantar fascial enthesophyte. Mild arthrosis of the midfoot. No acute fracture. No dislocation. Soft tissues: Unremarkable. IMPRESSION: No acute osseous abnormality. Consider repeat radiographs in 10-14 days if there is clinical concern for radiographically occult fracture.
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
== END 2019-03-20 02:19 | disposition home or self-care (01) ==
LOC: EC 19:36
DX: T21.22XA Burn of second degree of abdominal wall, initial encounter (principal); M25.572 Pain in left ankle and joints of left foot; M25.532 Pain in left wrist; R00.0 Tachycardia, unspecified; I10 Essential (primary) hypertension; H40.9 Unspecified glaucoma; M06.9 Rheumatoid arthritis, unspecified; N39.0 Urinary tract infection, site not specified; Z88.5 Allergy status to narcotic agent; Z88.8 Allergy status to other drugs, medicaments and biological substances; Z91.013 Allergy to seafood; Z91.030 Bee allergy status; Z91.041 Radiographic dye allergy status; Z91.048 Other nonmedicinal substance allergy status; Z79.84 Long term (current) use of oral hypoglycemic drugs; Z79.899 Other long term (current) drug therapy; Z86.14 Personal history of Methicillin resistant Staphylococcus aureus infection; Z96.659 Presence of unspecified artificial knee joint; Z90.49 Acquired absence of other specified parts of digestive tract; V43.52XA Car driver injured in collision with other type car in traffic accident, initial encounter; W22.11XA Striking against or struck by driver side automobile airbag, initial encounter; Y92.410 Unspecified street and highway as the place of occurrence of the external cause
CPT/HCPCS: 99285; 16000; 96374; 96375 ×2; 36415; 93005; 80053; 82550; 85025; 85610; 85730; 81001; 81025; 73110; 73610; 71046; 74177; J1200; J2930; Q9967

== ENCOUNTER → 2019-06-16 | Outpatient (CLI) | payer BC ==
[2019-06-16 12:35] VITALS: BP 121/83; PULSE 84; RESP 18; TEMP 97.8
--- NOTE | 2019-06-16 13:05 | P.PN ---
Progress Note - Text Progress Note Date: 06/16/19 Chief Complaint: Right breast pain for 9 days. HPI: This is a 54-year-old with an LMP of 1998. She states she developed right breast pain on the inner aspect of the breast 9 days ago. She does not know of any activity that the pain was associated with. She did clean out her garage 2 days before and she does not think this was associated with the pain. She describes the pain as a dull ache but can have burning sensations at times. The pain has actually gotten better gradually over the last week, but she was concerned because her mother had breast cancer. The patient had a benign mammogram on 02/02/2019. She does not feel any masses and denies any nipple discharge. She does not have pain in the left breast. The pain does not radiate from the area. She does drink a lot of caffeinated beverages. ROS: She denies fever, respiratory, cardiac, or GI problems. PE: Blood pressure: 121/83, Height: Feet 5 inches, Weight: 239 pounds, Temperature: 97.8, Pulse: 84. BMI 39.8. This is a well developed, well nourished, heavyset white female who is alert and orientedx3, in no acute distress. Breast exam: The breasts appear symmetric without puckering or dimpling. There is no unusual thickening of the skin or redness of the breasts. The nipples are not inverted. There is mild medial right breast tenderness with no palpable masses. There is no nipple discharge. The left breast is negative for mass or tenderness. Axillary exam is negative for adenopathy and nontender. Impression: 1. 54-year-old menopausal female with right medial breast mastodynia with no evidence of mass on exam today. Differential diagnosis will include muscle strain, fibrocystic changes of the breast, or breast ligament strain. I doubt this is due to any breast neoplasm or shingles. Plan: 1. I recommended that the patient try to decrease caffeine intake gradually. I have also recommended that she try not to press on the area much during the following week. 2. She will continue to do self breast checks and call if she is feeling strange lump or notices unusual breast findings. 3. I have reassured the patient that I believe that this is not likely to be a malignancy. 4. She will return for her well woman exam in January 2020 and as needed. Time spent with the patient: 15 minutes
== END | disposition home or self-care (01) ==
LOC: WWCWWP 11:54
PROVIDERS: ATTEND Obstetrics & Gynecology
DX: Z53.9 Procedure and treatment not carried out, unspecified reason (principal)

== ENCOUNTER → 2019-07-17 | Outpatient (CLI) | payer BC ==
[2019-07-17 10:32] LABS: HCT 42.1 % (34.0-46.0); HGB 13.5 gm/dL (11.4-16.0); MCH 29.2 pg (25.0-35.0); MCV 91.1 fL (80.0-100.0); Mean Platelet Volume 6.1; Platelet Count 295 k/uL (150-450); RBC 4.63 m/uL (3.80-5.40); RDW 12.2 % (11.5-15.5)
[2019-07-17 10:40] LABS: INR 0.9 (<1.2); Partial Thromboplastin Time 28.3 sec (22.0-30.0); Prothrombin Time 9.8 sec (9.0-12.0)
[2019-07-17 10:51] LABS: Appearance,Urine Clear (Clear); Bilirubin,Urine Negative (Negative); Blood,Urine Negative (Negative); Color,Urine Yellow; Glucose,Urine (UA) Negative (Negative); Ketones,Urine Negative (Negative); Leukocyte Esterase,Urine Small (Negative); Mucus,Urine Few /hpf; Nitrite,Urine Negative (Negative); PH, Urine 6.5 (5.0-8.0); Protein,Urine Trace (Negative); RBC,Urine 1 /hpf (0-5); Specific Gravity,Urine 1.025 (1.001-1.035); Squamous Epithelial Cell,Urine 5 /hpf (0-4); Urobilinogen,Urine <2.0 mg/dL (<2.0); WBC,Urine 5 /hpf (0-5)
[2019-07-17 10:53] LABS: ALT 26 U/L (9-52); AST 20 U/L (14-36); African American GFR (CKD) >90 (>60 ml/min/1.73 sqM); Albumin 4.3 g/dL (3.5-5.0); Alkaline Phosphatase 91 U/L (38-126); Anion Gap 8 mmol/L; Blood Urea Nitrogen 18 mg/dL (7-17); Calcium 9.6 mg/dL (8.4-10.2); Carbon Dioxide 27 mmol/L (22-30); Chloride 105 mmol/L (98-107); Glucose 101 mg/dL (74-99); Potassium 4.2 mmol/L (3.5-5.1); Sodium 140 mmol/L (137-145); Total Bilirubin 0.6 mg/dL (0.2-1.3)
== END | disposition home or self-care (01) ==
LOC: LABPAT 10:00
PROVIDERS: ATTEND Orthopaedic Surgery Sports Medicine
DX: Z01.812 Encounter for preprocedural laboratory examination (principal); M17.11 Unilateral primary osteoarthritis, right knee
CPT/HCPCS: 36415; 80053; 81001; 85027; 85610; 85730; 87070

== ENCOUNTER 2019-08-04 10:55 | Inpatient (IN) | payer BC, OTHER ==
[2019-07-28 14:56] VITALS: BMI 39.6
[~2019-08-04 10:55] MED LIST: ACETAMINOPHEN TAB 500 MG TAB PO ONE; DEXAMETHASONE SOD PHOSPHATE 10 MG/ML 1 ML VIAL IV ONE; GABAPENTIN 300 MG CAP PO ONE; HYDROmorphone 0.5 MG/0.5 ML SYRINGE IVP PRN; LIDOCAINE 1% 20 ML VIAL (10MG/ML) FOR IV START INTRADERMA PRN; MELOXICAM 7.5 MG TAB PO ONE; MIDAZOLAM 2 MG/2 ML VIAL IV PRN; ONDANSETRON 4 MG/2 ML VIAL IVP ONE; ROPIVACAINE 246.25 MG, EPINEPHrine 0.5 MG, KETOROLAC 30 MG, cloNIDine HCL/PF 80 MCG, WA... MISCELLANE ONE; SCOPOLAMINE 1.5MG/72HR PATCH TRANSDERM ONE; TRANEXAMIC ACID 1,000 MG in SODIUM CHLORIDE 0.9% 100 ML IVPB ONE
[2019-08-04] MEDS: LACTATED RINGERS 1,000 ML IV SCH ×3 (11:36→23:13)
[2019-08-04 11:37] LABS: Glucose,Whole Blood 97 mg/dL (75-99)
[2019-08-04] MEDS ORDERED: PHENYLEPHRINE-0.9% NACL SYG 1 MG/10 ML SYRINGE ONE (12:18)
[2019-08-04] MEDS ORDERED: MIDAZOLAM 2 MG/2 ML VIAL ONE (12:18)
[2019-08-04] MEDS ORDERED: MORPHINE SULFATE (PF) 0.3 MG/0.3 ML SYR ONE (12:18)
[2019-08-04] MEDS ORDERED: fentaNYL (PF) 50 MCG/ML 2 ML AMP ONE (12:18)
[2019-08-04] MEDS ORDERED: SODIUM CHLORIDE 0.9% 100 ML BAG ONE (12:18)
[2019-08-04] MEDS ORDERED: ePHEDrine SULFATE/0.9% NACL/PF 50 MG/5 ML SYRINGE IV ONE (12:18)
[2019-08-04] MEDS ORDERED: TRANEXAMIC ACID 1,000 MG/10 ML VIAL ONE (12:18)
[2019-08-04] MEDS ORDERED: PROPOFOL 10 MG/ML 20 ML VIAL IV ONE (12:18)
[2019-08-04] MEDS ORDERED: ceFAZolin 3,000 MG in SODIUM CHLORIDE 0.9% IRRIGATIO 3,000 ML IRRIGATION ONE (12:23)
[2019-08-04] MEDS ORDERED: MAGNESIUM HYDROXIDE 2,400 MG/10 ML CUP PO PRN (12:35)
[2019-08-04] MEDS ORDERED: TEMAZEPAM 15 MG CAP PO PRN (12:35)
[2019-08-04] MEDS ORDERED: ONDANSETRON 4 MG/2 ML VIAL IVP PRN ×2 (12:35→12:58)
[2019-08-04] MEDS ORDERED: HYDROmorphone 1 MG/ML 1 ML SYRINGE IVP PRN (12:35)
[2019-08-04] MEDS ORDERED: HYDROmorphone 0.5 MG/0.5 ML SYRINGE IVP PRN ×2 (12:35)
[2019-08-04] MEDS ORDERED: BISACODYL 10 MG SUPP RECTAL PRN (12:35)
[2019-08-04] MEDS ORDERED: DIAZEPAM 5 MG TAB PO PRN (12:35)
[2019-08-04] MEDS ORDERED: HYDROcodone/APAP 5-325MG 1 EACH TAB PO PRN (12:35)
[2019-08-04] MEDS ORDERED: NALOXONE 0.4 MG/ML 1 ML VIAL IV PRN ×2 (12:35→12:58)
[2019-08-04] MEDS ORDERED: NA PHOS,M-B/NA PHOS,DI-BA 133 ML ENEMA RECTAL PRN (12:35)
[2019-08-04] MEDS ORDERED: MORPHINE SULFATE 2 MG/ML SYRINGE IVP PRN (12:58)
[2019-08-04] MEDS ORDERED: diphenhydrAMINE 50 MG/ML 1 ML VIAL IVP PRN (12:58)
[2019-08-04] MEDS ORDERED: LACTATED RINGERS 1,000 ML IV ONE (13:10)
--- NOTE | 2019-08-04 14:39 | XR ---
EXAMINATION TYPE: XR knee limited RT DATE OF EXAM: 08/04/2019 CLINICAL HISTORY: Right knee pain and arthritis status post total knee replacement. TECHNIQUE: Portable AP and crosstable lateral views of the right knee are obtained immediately posto peratively. COMPARISON: None FINDINGS: Metallic hardware from total right knee arthroplasty is seen and appears satisfactory in a lignment and position. There is evidence of recent surgery with diffuse subcutaneous gas and soft ti ssue swelling noted. IMPRESSION: METALLIC HARDWARE FROM TOTAL RIGHT KNEE ARTHROPLASTY IS SATISFACTORY IN ALIGNMENT.
[2019-08-04 14:49] LABS: Glucose,Whole Blood 98 mg/dL (75-99)
--- NOTE | 2019-08-04 17:24 | OP ---
OPERATIVE REPORT DATE OF PROCEDURE: 08/04/2019 SURGEON: Larry Han MD CLINICAL REHABILITATION COORDINATOR: Justice Gauthier PA-C PREOPERATIVE DIAGNOSIS: Right knee osteoarthrosis. POSTOPERATIVE DIAGNOSIS: Right knee osteoarthrosis. OPERATION: Right total knee arthroplasty. ANESTHESIA: Spinal with sedation. ESTIMATED BLOOD LOSS: 100 mL. TOURNIQUET TIME: 44 minutes at 250 mmHg. COMPLICATIONS: None apparent. DRAINS: None. DISPOSITION: Post-Anesthesia Care Unit. INDICATIONS: Kay is a very pleasant 54-year-old female with longstanding history of right knee pain. History and physical examination are consistent with advanced right knee osteoarthrosis. She has been through significant nonoperative treatment up to this point. Further treatment options were discussed and she has decided to go forward with a right total knee arthroplasty. The risks of the procedure were discussed with her in detail. These risks include but are not limited to risk of infection, nerve damage, bleeding, pain, and a small risk of deep vein thrombosis which could lead to fatal pulmonary embolism. There is also a risk of loosening of the implant which could require revision operation. The patient understands these risks. All of her questions were answered to her satisfaction. An appropriate informed consent was obtained. DESCRIPTION OF PROCEDURE: The patient was identified in the preoperative holding area. Surgical site was marked by both the patient and myself. She was given 2 grams of Ancef IV for prophylactic purposes. She was then transferred to the operative suite. She was placed supine on the operating room table. Spinal anesthetic was then administered and dosed per the anesthesia department without apparent complication. Examination under anesthesia was then performed. The patient had full extension. She had 100 degrees of flexion, and the medial collateral ligament, lateral collateral ligament, and posterior cruciate ligaments were stable. Tourniquet was then placed high on the right upper thigh, well padded in preparation for surgery. The patient's right lower extremity was then prepped and draped in the usual sterile fashion. A standard surgical pause was undertaken to ensure that we were operating on the correct site and that appropriate preoperative antibiotics had been given. All staff in the room were in agreement and we proceeded. The outlines of the patella were marked with a surgical pen. A planned 12-cm vertical incision centered over the patella was marked with the surgical pen. The leg was then exsanguinated with an Esmarch dressing. The knee was then flexed and the tourniquet was inflated to 250 mmHg. The total tourniquet time for the procedure was 44 minutes. Incision was then made with a 10-blade scalpel. Dissection was carried down sharply to the overlying fascia. Great care was taken to minimize the skin flaps. The knee was then exposed using a standard medial parapatellar approach. A small cuff of quadriceps tendon was then left for suturing. She was in a bit of varus preoperatively. A standard medial release was then made. The superficial medial collateral ligament was dissected off of the bone around to the posterior aspect of the proximal tibia. The medial meniscus was then excised as well. The lateral meniscus was also released anteriorly. The leg was then externally rotated. The patella was everted. The knee was flexed. The retractors were then placed to protect the collateral ligaments. I then proceeded to remove the infrapatellar fat pad. This was excised sharply tangentially with the fibers of the patellar tendon. I then proceeded to remove peripheral osteophytes. This was done with a rongeur. I then proceeded with the distal femoral resection. She did have near-full extension. A planned 9-mm resection was then done. The femoral canal was then entered in the midline of the femur approximately 10 mm anterior to the origin of the posterior cruciate ligament. The lupe was then advanced down the center of the femur and placed intramedullary. Based on the preoperative radiographs, the angle between the anatomic and mechanical axes of the femur was approximately 4 to 5 degrees. The valgus angle of the distal femoral cutting guide was then set at 4 degrees for the right knee. The distal femoral cutting guide was then advanced over the intramedullary lupe. This was seated firmly against the femur. I then, as mentioned, planned to take 9 mm off the distal femur. The cutting block was then secured onto the femur with pins. The jig was removed and the distal femoral cut was made through the slot of the block. The pin was then removed and the distal femoral cutting block was removed. The accuracy of the distal femoral cuts was checked with 2 flat bars. I then proceeded with femoral sizing. The posterior referencing sizing guide was held firmly against the resected distal surface of the femur. The posterior condyles were resting on the posterior plane of the guide. The sizing stylus was then placed onto the anterior femur. The size was measured as a size 9. I then assessed for femoral rotation. The plan was for 3 degrees of external rotation. Three degrees of external rotation was placed onto the jig. These holes were then marked. I then confirmed the rotation by 3 separate methods. This was done using the epicondylar axis as well as Whitesides line and posterior referencing. It was deemed that the external rotation was proper. I then went forward with placing the femoral cutting block. This was placed over the previously placed pin holes. The Adam wing was then placed onto the anterior slots to ensure that we would not notch the anterior femur with the anterior femoral cut. I then proceeded with the anterior femoral cut. This was flush with the anterior cortex of the femur. The posterior cuts were then made followed by the anterior chamfer cut and then the posterior chamfer cut. The cutting block was then removed. Throughout the resection, the collateral ligaments were protected with retractors. I then placed a trial size 9 femur. It was slightly wide mediolateral, but the narrow fit very nicely and it was flush with the distal end of the femur. The drill holes were then made. I then proceeded with the tibial cut. I planned for a cruciate-retaining knee. The guide was placed and set for varus, valgus, and for slope. The height was set for an approximate 2-mm resection from the medial tibial plateau, which was the lower side. I was happy with the alignment and the amount of resection. The cutting block was then pinned to the proximal tibia. The alignment lupe was removed and the proximal tibia was resected with a reciprocating saw. Again this was done with retractors protecting the collateral ligaments as well as the posterior cruciate ligament. I then proceeded to evaluate the flexion and extension gaps. A 10-mm block was then placed. The flexion and extension gaps were equal. I then proceeded with resection of the posterior osteophytes. She had very minimal posterior osteophytes. This was done using a curved osteotome. This resected the posterior osteophytes, and posterior capsule stripping was done off the posterior aspect of the femur at this time. The osteophytes were then removed. I then proceeded with resection of the patella. The thickness of the patella was measured using the caliper. The thickness was 22 mm. The thickness of the anticipated patellar dome was taken into account. The resection was then performed and confirmed to be equal in 4 quadrants using a caliper. Approximately 14 mm of bone remained after resection. A 29 x 8 standard patellar trial was then placed. The holes were drilled and the trial was then placed. I then proceeded with sizing of the tibial plate. A size D tibial plate fit very nicely. I then placed the trial femur, the tibial tray, and the patellar button. A 10- mm trial insert was also placed. The components fit very nicely. She had full extension and flexion. The extension and flexion gaps were equal and stable to both varus and valgus stress. The patella tracked appropriately. The tibial tray rotation was then marked with a Bovie. This was externally rotated properly. I then proceeded with tibial preparation. I first drilled the femoral holes and removed the femoral component. The tibial tray was then set for proper external rotation as well as mediolateral placement onto the tibia. It was then pinned into place. I then proceeded with punching the keel. I then decided to proceed with cementing of all of our components. The knee was thoroughly irrigated with sterile saline solution via pulse lavage. The lateral geniculate artery was identified and cauterized. All blood was removed from the bone of the tibia, femur and patella with pulse lavage. I then proceeded with cementing. Two packs of antibiotic bone cement were prepared on the back table by the surgical consultant. I then proceeded with cementing of the tibia first. The cement was impacted into the keel as well as deeply seated into the bone. A second coat of cement was then placed. The tibia was then impacted into place. Excess cement was removed with Elida's and Joker's. I then proceeded with cementing of the femoral component. The femoral component was also cemented using standard technique. Excess cement was removed. The 10-mm trial insert was then placed into the knee. It was brought into full extension with a constant axial load placed until the cement had hardened. The patellar component was then cemented. This was held firmly with a compressive device until the cement had dried. When the cement had dried, the knee was taken out of extension. All excess cement was removed from around the prosthesis. I then trialed the knee with a 10-mm insert. The flexion and extension gaps were appropriate. I then trialed with an 11-mm insert. Flexion and extension gaps felt better. The knee was stable with the 11-mm insert. It came into full extension. I decided to go forward with an 11-mm cross-linked cruciate- retaining tibial insert. Polyethylene was then placed onto the tibial tray and locked into place. The knee was then reduced. The knee was again further irrigated with sterile saline solution with antibiotic added. The tourniquet was then deflated. The total tourniquet time for the procedure was 44 minutes at 250 mmHg. Final components were a Pooja Persona size 9 narrow cruciate-retaining femoral component, a size D tibial tray, an 11-mm medial- congruent cruciate-retaining polyethylene insert, and a 29 x 8 patella. I then proceeded with closure. Again the knee was thoroughly irrigated. The quadriceps tendon and the medial retinaculum were reapproximated with a #2 Ethibond suture. The extensor mechanism was then closed with a running #2 Quill suture. Subcutaneous tissues were then closed with 2-0 Vicryl interrupted suture. Skin was closed with a running 3-0 Quill suture. Dermabond was applied to the incision. Sterile compressive dressings were then applied. All sponge and needle counts were deemed correct prior to closure. The patient tolerated the procedure without apparent complication. She was transferred to the recovery room in stable condition. MMODL / IJN: [id number] /
[2019-08-04] MEDS: SENNOSIDES-DOCUSATE SODIUM 1 EACH TAB PO SCH (22:12)
[2019-08-04] MEDS: ASPIRIN 325 MG TAB PO SCH (22:12)
[2019-08-04] MEDS: traMADol 50 MG TAB PO PRN (22:13)
--- NOTE | 2019-08-05 06:01 | P.PN ---
Progress Note - Text Progress Note Date: 08/05/19 54 yo female status post Total Knee replacement. Post-op day #1. Patient receiv ed intrathecal Duramorph. Patient was seen today, sitting up in bed, pain VAS score 2/10, no headache, no itching, no nausea and vomiting. She is complaining of urinary retention. she had to have a straight catheter to empty her bladder around midnight. She did void on her own this morning. Assessment and plan: Doing well in general no complications from anesthesia.
[2019-08-05] MEDS: traMADol 50 MG TAB PO PRN (06:32)
[2019-08-05] MEDS: ASPIRIN 325 MG TAB PO SCH ×2 (08:08→20:05)
[2019-08-05] MEDS: LACTATED RINGERS 1,000 ML IV SCH ×2 (08:09→15:02)
[2019-08-05 08:37] LABS: Basophils % (A) 0 %; Eosinophils % (A) 0 %; HCT 33.5 % (34.0-46.0); HGB 11.2 gm/dL (11.4-16.0); Lymphocytes # (A) 1.6 k/uL (1.0-4.8); Lymphocytes % (A) 14 %; MCH 30.7 pg (25.0-35.0); MCHC 33.5 g/dL (31.0-37.0); MCV 91.8 fL (80.0-100.0); Mean Platelet Volume 5.6; Monocytes # (A) 0.7 k/uL (0-1.0); Monocytes % (A) 6 %; Neutrophils # (A) 8.8 k/uL (1.3-7.7); Neutrophils % (A) 77 %; Platelet Count 291 k/uL (150-450); RBC 3.65 m/uL (3.80-5.40); RDW 12.3 % (11.5-15.5); WBC 11.3 k/uL (3.8-10.6)
[2019-08-05] MEDS: HYDROcodone/APAP 10-325MG 1 EACH TAB PO PRN ×3 (10:54→22:01)
[2019-08-05] MEDS: MULTIVITAMINS, THERA 1 EACH TAB PO SCH (10:54)
--- NOTE | 2019-08-05 12:49 | P.PN ---
Subjective Progress Note Date: 08/05/19 Principal diagnosis: Right TKA Patient is seen at bedside this morning. She is postop day #1 from right total knee arthroplasty. She has pain at the surgical site as expected but denies any new complaints. She denies numbness, tingling or calf pain. Review of systems is negative for fever, chills, chest pain, shortness of breath or other Objective - Vital Signs Vital signs: Vital Signs Temp 98.3 F 08/05/19 10:26 Pulse 80 08/05/19 10:26 Resp 18 08/05/19 10:26 BP 98/65 08/05/19 10:26 Pulse Ox 94 L 08/05/19 10:26 Intake & Output 08/04/19 08/05/19 08/05/19 18:59 06:59 18:59 Intake Total 1751 900 Output Total 100 40 Balance 1651 860 Weight 108.862 kg Intake: IV 1551 900 Invasive Line 2 900 Oral 200 Output: Urine 40 Estimated Blood Loss 100 - Exam Inspection reveals a benign surgical wound. There is no active bleeding or drainage. Neurovascular status is intact throughout the lower extremity with motor and sensation fully intact. Calf is soft and nontender. 2+ dorsalis pedis pulse and less than 2 second cap refill is present. - Constitutional General appearance: Present: no acute distress - Labs CBC & Chem 7: 08/05/19 08:02 Labs: Abnormal Lab Results - Last 24 Hours (Table) 08/05/19 Range/Units 08:02 WBC 11.3 H (3.8-10.6) k/uL RBC 3.65 L (3.80-5.40) m/uL Hgb 11.2 L (11.4-16.0) gm/dL Hct 33.5 L (34.0-46.0) % Neutrophils # 8.8 H (1.3-7.7) k/uL Assessment and Plan (1) Status post total right knee replacement Narrative/Plan: She will continue with routine postop orthopedic protocol including pain management, wound care, PT, DVT prophylaxis and medical management. Expect that she will transfer to home tomorrow Current Visit: Yes Status: Acute Priority: Medium Code(s): Z96.651 - PRESENCE OF RIGHT ARTIFICIAL KNEE JOINT SNOMED Code(s): 2305311821166 Time with Patient: Less than 30
[2019-08-05] MEDS: SENNOSIDES-DOCUSATE SODIUM 1 EACH TAB PO SCH (20:05)
--- NOTE | 2019-08-05 23:43 | P.CONS ---
History of Present Illness - Reason for Consult Consult date: 08/05/19 Medical management Requesting physician: Larry Han - Chief Complaint Right knee surgery - History of Present Illness Consultation: This is a very pleasant 54-year-old patient of Dr. Adeel Zavaleta. Chronic stable medical conditions include diet-controlled diabetes, hypertension, hyperlipidemia, anxiety, fibromyalgia, GERD, rheumatoid arthritis. Postprocedure patient done well. No chest pain or shortness of breath. Cardiology today patient did get dizzy lightheaded or pressure was noted to be low 100 systolic. Patient also had of bleeding from the IV site on the left arm and it was somewhat of blood. Patient's antihypertensives were held this morning. No chest pain no palpitation. Did tolerate some breakfast. Review of systems: GEN.: Tired EYES: None HEENT: None NECK: None RESPIRATORY: None CARDIOVASCULAR: None GASTROINTESTINAL: Reflux GENITOURINARY: None MUSCULOSKELETAL: Joint pains LYMPHATICS: None HEMATOLOGICAL: None PSYCHIATRY: Anxiety] NEUROLOGICAL: None Past medical history to include: Diet-controlled diabetes, hypertension, hyperlipidemia, anxiety, fibromyalgia, GERD, rheumatoid arthritis Social history: Does not smoke, no alcohol. . 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 EYES: Pupils equal. Conjunctiva slightly palel. HEENT: External appearance of nose and ears normal, oral cavity grossly normal. NECK: JVD not raised; masses not palpable. HEART: First and second heart sounds are normal; no edema. LUNGS: Respiratory rate normal; clear to auscultation. ABDOMEN: Soft, nontender, liver spleen not palpable, no masses palpable. PSYCH: Alert and oriented x3; mood and affect normal. NEUROLOGICAL: Cranial nerves grossly intact; no facial asymmetry, power and sensation grossly intact. LYMPHATICS: No lymph nodes palpable in the axilla and neck MUSCULOSKELETAL: Dressing over the right knee INVESTIGATIONS, reviewed in the clinical context: Lab work from July 17 included: White count 5 hemoglobin 7.5 platelets 25 progression 4.2 creatinine 0.67 Labs from this morning: Hemoglobin 11.2 Assessment: -Right total knee arthroplasty -Essential hypertension history of -Acute hypotension from blood loss anemia postprocedure as expected -Acute postprocedure anemia as expected from surgery -Hyperlipidemia -Anxiety not otherwise specified -Chronic photodamage in -GERD -Obesity BMI 39.9 Plan: -Home medications resumed. Patient given IV fluids. Antihypertensives were held. Patient is on aspirin for DVT prophylaxis. Care was discussed with the patient question were answered. Thank you Dr. Han Past Medical History Past Medical History: Eye Disorder, Fibromyalgia, GERD/Reflux, Hyperlipidemia, Hypertension, Rheumatoid Arthritis (RA), Skin Disorder Additional Past Medical History / Comment(s): Pre-diabetic, borderline sleep apnea-no tx, glaucoma, Rosacea. "Currently has prescription for Bactrim from Dr Han's office, to start 07/30/19 for 5 days for possible UTI." History of Any Multi-Drug Resistant Organisms: MRSA Year Discovered:: 2017 MDRO Source:: nasal swab positive Past Surgical History: Appendectomy, Cholecystectomy, Hysterectomy, Joint Replacement, Orthopedic Surgery, Tubal Ligation Additional Past Surgical History / Comment(s): Tubal reversal & then another tubal, arthroscopy right knee, carpal tunnel repair, left knee replacement, parathyroid tumor removed. Past Anesthesia/Blood Transfusion Reactions: Previous Problems w/ Anesthesia Additional Past Anesthesia/Blood Transfusion Reaction / Comm: Slow to wake up, hx. of "fever" after 2 surgeries-once as kid, other with 6 hour tubal reversal, thought was from anesthesia, has never heard of malignant hyperthermia & no family hx. of. Mom has low O2 sats after surgery. Past Psychological History: No Psychological Hx Reported Smoking Status: Never smoker Past Alcohol Use History: None Reported Past Drug Use History: None Reported - Past Family History Mother Family Medical History: Cancer Additional Family Medical History / Comment(s): Breast cancer. Father Family Medical History: COPD, Dementia Additional Family Medical History / Comment(s): Parkinson's disease. Daughter(s) Family Medical History: Pulmonary Embolus Medications and Allergies Home Medications Medication Instructions Recorded Confirmed Type Acetaminophen Tab [Tylenol Tab] 1,000 mg PO BID 11/11/15 08/04/19 History Cholecalciferol [Vitamin D3] 2,000 unit PO DAILY 11/11/15 08/04/19 History Hydroxychloroquine Sulfate 400 mg PO DAILY 11/11/15 08/04/19 History [Plaquenil] Losartan Potassium [Cozaar] 100 mg PO QAM 11/11/15 08/04/19 History amLODIPine [Norvasc] 5 mg PO QAM 11/11/15 08/04/19 History Furosemide [Lasix] 40 mg PO DAILY 08/22/17 08/04/19 History Timolol 0.5% Ophth Soln [Timoptic 1 drop BOTH EYES BID 08/22/17 08/04/19 History 0.5% Ophth Soln] Metoprolol Tartrate 12.5 mg PO QAM 11/25/17 08/04/19 History Atorvastatin [Lipitor] 10 mg PO HS 02/02/19 08/04/19 History metFORMIN HCL [Glucophage Xr] 1,000 mg PO DAILY 03/19/19 08/04/19 History ALPRAZolam [Xanax] 0.25 mg PO TID PRN 07/28/19 08/04/19 History Cetirizine HCl [Zyrtec] 10 mg PO QAM 07/28/19 08/04/19 History Doxycycline [Vibramycin] 100 mg PO QAM 07/28/19 08/04/19 History Nexium(Unknown Dose) 1 tab PO QAM 07/28/19 08/04/19 History Olopatadine HCl [Pataday] 1 drop BOTH EYES BID 07/28/19 08/04/19 History Sulfamethox-Tmp 800-160Mg [Bactrim 1 tab PO Q12HR 07/28/19 08/04/19 History DS 800-160 mg] Aspirin 325 mg PO BID #60 tab 08/05/19 Rx Docusate [Colace] 100 mg PO BID #60 capsule 08/05/19 Rx HYDROcodone/APAP 7.5-325MG [[place] 1 - 2 each PO Q6HR PRN #56 tab 08/05/19 Rx 7.5-325] Allergies Allergy/AdvReac Type Severity Reaction Status Date / Time shellfish derived [Shellfish] Allergy Anaphylaxis Verified 08/04/19 11:14 venom-honey bee Allergy Anaphylaxis Verified 08/04/19 11:14 [bee venom (honey bee)] codeine AdvReac Nausea & Verified 08/04/19 11:14 Vomiting Iodinated Contrast Media AdvReac Unknown Verified 08/04/19 11:14 [Iodinated Contrast- Oral and IV Dye] labetalol AdvReac "pinging Verified 08/04/19 11:14 in head" metal brittany AdvReac fever Uncoded 08/04/19 11:14 Physical Exam Vitals: Vital Signs Temp Pulse Resp BP Pulse Ox 08/05/19 04:50 16 08/05/19 03:00 16 08/05/19 01:30 97.3 F L 93 16 67/44 95 08/05/19 01:00 16 08/05/19 00:00 16 08/04/19 23:42 98.2 F 97 14 88/60 93 L 08/04/19 19:57 98.4 F 92 16 99/62 94 L 08/04/19 19:56 15 08/04/19 19:35 98.3 F 80 18 98/65 94 L 08/04/19 19:00 15 08/04/19 17:22 94 L 08/04/19 17:00 16 08/04/19 16:30 97/60 97 08/04/19 16:16 102/70 98 08/04/19 16:02 112/74 98 08/04/19 15:58 14 99 08/04/19 15:46 100/67 92 L 08/04/19 15:38 100/67 95 08/04/19 15:32 100/67 95 08/04/19 15:18 97.9 F 104 H 16 90/54 91 L 08/04/19 14:45 98 16 95/53 95 08/04/19 14:31 94 16 95/53 95 08/04/19 14:15 91 16 100/58 95 08/04/19 14:04 97.5 F L 95 16 95/49 93 L 08/04/19 11:25 98.1 F 97 16 119/55 95 Intake and Output 08/04/19 08/05/19 08/05/19 22:59 06:59 14:59 Intake Total 500 600 Output Total 40 Balance 500 560 Intake: IV 300 600 Invasive Line 2 300 600 Oral 200 Output: Urine 40 Other: Weight 108.862 kg Results CBC & Chem 7: 08/05/19 08:02 Labs: Abnormal Lab Results - Last 24 Hours (Table) 08/05/19 Range/Units 08:02 WBC 11.3 H (3.8-10.6) k/uL RBC 3.65 L (3.80-5.40) m/uL Hgb 11.2 L (11.4-16.0) gm/dL Hct 33.5 L (34.0-46.0) % Neutrophils # 8.8 H (1.3-7.7) k/uL
[2019-08-06] MEDS: KETOTIFEN 0.025% OPHTH DROPS 5 ML BTL BOTH EYES SCH ×2 (00:08→09:18)
[2019-08-06] MEDS: TIMOLOL 0.5% OPHTH DROPS 5 ML BTL BOTH EYES SCH ×2 (00:09→09:18)
[2019-08-06] MEDS: HYDROcodone/APAP 10-325MG 1 EACH TAB PO PRN ×3 (03:16→14:43)
[2019-08-06] MEDS: hydrOXYzine PAMOATE 25 MG CAP PO PRN ×3 (03:19→14:43)
[2019-08-06 04:06] VITALS: RESP 16
[2019-08-06] MEDS: LACTATED RINGERS 1,000 ML IV SCH ×2 (06:07→06:08)
[2019-08-06 07:37] VITALS: BP 104/63; PULSE 109; TEMP 98.4
--- NOTE | 2019-08-06 08:28 | P.DS ---
Providers Date of admission: 08/05/19 10:47 Expected date of discharge: 08/06/19 Attending physician: Larry Han Consults: 08/04/19 12:35 Consult Physician Routine Consulting Provider: Cosme Kidd Consult Reason/Comments: post op medical management Do you want consulting provider notified?: Yes Primary care physician: [facility] Course: Bhavesh is a pleasant 54-year-old female last seen in our office with complaints of right knee pain. Patient has known history of degenerative arthritis of the right knee and presented to discuss options. After discussion and consideration, patient elected to proceed with a total knee arthroplasty of the right knee. The patient was seen preoperatively and medically cleared for surgery by her primary care physician. The patient was admitted to [facility] and underwent right total knee arthroplasty on 08/04/[address] Han. The procedure was performed without complications or sequelae. The patient has done well postoperatively. The patient was seen and evaluated at bedside today and denies any new complaints. Pain is reasonably controlled. Dressing is clean dry and intact. Incision looks fine with no erythema or active drainage. Calf is soft and nontender. The patient has full foot and ankle motion without difficulty. Patient's right lower extremity is neurovascular intact. Patient is orthopedically stable for discharge to home today. See medication reconciliation for accurate list of discharge medications. Pertinent Studies: Laboratory Tests 08/05/19 08:02 WBC 11.3 H RBC 3.65 L Hgb 11.2 L Hct 33.5 L Neutrophils # 8.8 H Patient Condition at Discharge: Stable Plan - Discharge Summary Discharge Rx Participant: Yes New Discharge Prescriptions: New Aspirin 325 mg PO BID #60 tab Docusate [Colace] 100 mg PO BID #60 capsule HYDROcodone/APAP 7.5-325MG [[place] 7.5-325] 1 - 2 each PO Q6HR PRN #56 tab PRN Reason: Pain hydrOXYzine PAMOATE [Vistaril] 25 mg PO TID PRN #5 cap PRN Reason: Pain No Action Acetaminophen Tab [Tylenol Tab] 1,000 mg PO BID Hydroxychloroquine Sulfate [Plaquenil] 400 mg PO DAILY Cholecalciferol [Vitamin D3] 2,000 unit PO DAILY amLODIPine [Norvasc] 5 mg PO QAM Losartan Potassium [Cozaar] 100 mg PO QAM Timolol 0.5% Oph Soln [Timoptic 0.5% Ophth Soln] 1 drop BOTH EYES BID Furosemide [Lasix] 40 mg PO DAILY Metoprolol Tartrate 12.5 mg PO QAM Atorvastatin [Lipitor] 10 mg PO HS metFORMIN HCL [Glucophage Xr] 1,000 mg PO DAILY Doxycycline [Vibramycin] 100 mg PO QAM Cetirizine HCl [Zyrtec] 10 mg PO QAM ALPRAZolam [Xanax] 0.25 mg PO TID PRN PRN Reason: Anxiety Olopatadine HCl [Pataday] 1 drop BOTH EYES BID Nexium(Unknown Dose) 1 tab PO QAM Sulfamethox-Tmp 800-160Mg [Bactrim DS 800-160 mg] 1 tab PO Q12HR Discharge Medication List Acetaminophen Tab [Tylenol Tab] 1,000 mg PO BID 11/11/15 [History] Cholecalciferol [Vitamin D3] 2,000 unit PO DAILY 11/11/15 [History] Hydroxychloroquine Sulfate [Plaquenil] 400 mg PO DAILY 11/11/15 [History] Losartan Potassium [Cozaar] 100 mg PO QAM 11/11/15 [History] amLODIPine [Norvasc] 5 mg PO QAM 11/11/15 [History] Furosemide [Lasix] 40 mg PO DAILY 08/22/17 [History] Timolol 0.5% Ophth Soln [Timoptic 0.5% Ophth Soln] 1 drop BOTH EYES BID 08/22/17 [History] Metoprolol Tartrate 12.5 mg PO QAM 11/25/17 [History] Atorvastatin [Lipitor] 10 mg PO HS 02/02/19 [History] metFORMIN HCL [Glucophage Xr] 1,000 mg PO DAILY 03/19/19 [History] ALPRAZolam [Xanax] 0.25 mg PO TID PRN 07/28/19 [History] Cetirizine HCl [Zyrtec] 10 mg PO QAM 07/28/19 [History] Doxycycline [Vibramycin] 100 mg PO QAM 07/28/19 [History] Nexium(Unknown Dose) 1 tab PO QAM 07/28/19 [History] Olopatadine HCl [Pataday] 1 drop BOTH EYES BID 07/28/19 [History] Sulfamethox-Tmp 800-160Mg [Bactrim DS 800-160 mg] 1 tab PO Q12HR 07/28/19 [History] Aspirin 325 mg PO BID #60 tab 08/05/19 [Rx] Docusate [Colace] 100 mg PO BID #60 capsule 08/05/19 [Rx] HYDROcodone/APAP 7.5-325MG [[place] 7.5-325] 1 - 2 each PO Q6HR PRN #56 tab 08/05/19 [Rx] hydrOXYzine PAMOATE [Vistaril] 25 mg PO TID PRN #5 cap 08/06/19 [Rx] Follow up Appointment(s)/Referral(s): Adeel Anaya MD [Primary Care Provider] - 08/11/19 12:30 pm Larry Han MD [STAFF PHYSICIAN] - 08/09/19 9:30 am Activity/Diet/Wound Care/Special Instructions: Keep wound clean and dry Take meds as directed Follow-up with Dr. Han in office Weight bear as tolerated May shower in 3 days if no bleeding Discharge Disposition: HOME WITH HOME HEALTH SERVICES
[2019-08-06] MEDS ORDERED: metFORMIN 500 MG TAB PO SCH (09:00)
[2019-08-06] MEDS ORDERED: HYDROXYCHLOROQUINE SULFATE 200 MG TAB PO SCH (09:00)
[2019-08-06] MEDS: ASPIRIN 325 MG TAB PO SCH (09:18)
[2019-08-06] MEDS: MULTIVITAMINS, THERA 1 EACH TAB PO SCH (09:19)
--- NOTE | 2019-08-06 15:32 | PN ---
PROGRESS NOTE DATE OF SERVICE: 08/06/2019 This is a 54-year-old woman who was admitted after right total knee arthroplasty, improved significantly. No chest pain. No palpitations. No fever. Orthopedics planning surgery at this time. PHYSICAL EXAM: Alert and oriented x3, pulse 109, blood pressure 105/60, respiration 16, temperature 98.4, pulse ox 98% on room air. HEENT: Conjunctivae normal, oral mucosa moist. NECK: No jugular venous distention. No lymph node enlargement. CARDIOVASCULAR SYSTEM: S1, S2, muffled, RESPIRATORY SYSTEM: Breath sounds diminished at the bases. No rhonchi. No crackles. ABDOMEN: Soft, nontender. LEGS: Right knee arthroplasty. NERVOUS SYSTEM: No focal deficits. LABS: At this time shows WBC 11.3, hemoglobin 11.2. ASSESSMENT: 1. Status post right total knee arthroplasty. 2. Increased WBC. 3. Anemia, normocytic. 4. History of fibromyalgia. 5. Hypertension. 6. Hyperlipidemia. 7. Rheumatoid arthritis. 8. History of prediabetes. 9. History of rosacea. 10.History of cholecystectomy. 11.FULL CODE. RECOMMENDATION: In this 54-year-old woman who presented after surgery. At this time, the patient has improved significantly. I recommend to continue the home medications. Follow up with the primary physician closely, otherwise rest of the recommendations per Orthopedic Surgery. Further recommendations to follow. See orders for further details. MMODL / IJN: [id number] /
[2019-08-06] MEDS ORDERED: ATORVASTATIN 10 MG TAB PO SCH (21:00)
== END 2019-08-06 15:45 | disposition home health service (06) | DRG 470 ==
LOC: OR 10:55 → 4SSUR 15:09 → OR 08-05 10:47 → 4SSUR 08-05 10:47
PROVIDERS: ADMIT Orthopaedic Surgery Sports Medicine; ATTEND Orthopaedic Surgery Sports Medicine
PROC: 0SRC0J9 Replacement of Right Knee Joint with Synthetic Substitute, Cemented, Open Approach (ICD-10-PCS; principal; 2019-08-05)
DX: M17.11 Unilateral primary osteoarthritis, right knee (principal); D62 Acute posthemorrhagic anemia; E11.9 Type 2 diabetes mellitus without complications; E66.9 Obesity, unspecified; Z68.39 Body mass index [BMI] 39.0-39.9, adult; E78.5 Hyperlipidemia, unspecified; F41.9 Anxiety disorder, unspecified; I10 Essential (primary) hypertension; K21.9 Gastro-esophageal reflux disease without esophagitis; M06.9 Rheumatoid arthritis, unspecified; M79.7 Fibromyalgia; Z79.82 Long term (current) use of aspirin; Z79.84 Long term (current) use of oral hypoglycemic drugs; Z79.899 Other long term (current) drug therapy; Z80.3 Family history of malignant neoplasm of breast; Z82.0 Family history of epilepsy and other diseases of the nervous system; Z82.5 Family history of asthma and other chronic lower respiratory diseases; Z90.49 Acquired absence of other specified parts of digestive tract; Z90.710 Acquired absence of both cervix and uterus; Z96.652 Presence of left artificial knee joint
CPT/HCPCS: 85025; 88300

== ENCOUNTER → 2020-05-10 | Outpatient (CLI) | payer BC ==
[2020-05-10 10:46] VITALS: BP 122/80; PULSE 93; RESP 18; TEMP 98.4
--- NOTE | 2020-05-10 12:07 | P.HPOB ---
History of Present Illness H&P Date: 05/10/20 Chief Complaint: The patient is here for her routine gynecologic exam and ma mmogram. This is a 55-year-old 014 with an LMP of 1998. The patient is status post MARY ANN and LSO for benign reasons. The patient is without gynecologic complaints. Review of Systems The patient has gained 11 pounds over the last year. She denies respiratory, cardiac, or G.I. problems. Past Medical History Past Medical History: GERD/Reflux, Hypertension, Rheumatoid Arthritis (RA) Additional Past Medical History / Comment(s): Pre-diabetic, borderline sleep apnea-no tx. for, glaucoma, hyperparathyroidism improved after parathyroidectomy, seasonal ALLERGIES, glaucoma, fibromyalgia, and osteopenia. PAST FLUME TENDER HISTORY: She has no history of STDs. Oophorectomy for benign teratoma. History of Any Multi-Drug Resistant Organisms: MRSA Date of last positivie culture/infection: 2016 MDRO Source:: nasal swab positive Past Surgical History: Appendectomy, Cholecystectomy, Hysterectomy, Joint Replacement, Orthopedic Surgery, Tubal Ligation Additional Past Surgical History / Comment(s): tubal reversal & then another tubal, arthroscopy knee, carpal tunnel repair. MARY ANN with left oophorectomy in 1998, right salpingectomy, VTP. Past Anesthesia/Blood Transfusion Reactions: Previous Problems w/ Anesthesia Additional Past Anesthesia/Blood Transfusion Reaction / Comment(s): slow to wake up, hx. of "fever" after 2 surgeries-once as kid, other w/6 hour tubal reversal- low grade temp., thought was from anesthesia, has never heard of malignant hyperthermia & no family hx. of, mom has low O2 sats after surg. Past Psychological History: Anxiety Smoking Status: Never smoker Past Alcohol Use History: Rare (2 or 3 per year) Past Drug Use History: None Reported Additional History: She has been since 1993 and this is her second marriage. She watches some of her grandchildren. - Past Family History Mother Family Medical History: Cancer Additional Family Medical History / Comment(s): Breast cancer. Father Family Medical History: COPD, Dementia Additional Family Medical History / Comment(s): Parkinson's disease. Daughter(s) Family Medical History: Pulmonary Embolus Medications and Allergies Home Medications Medication Instructions Recorded Confirmed Type Acetaminophen Tab [Tylenol Tab] 1,000 mg PO BID 11/11/15 05/10/20 History Cholecalciferol [Vitamin D3] 2,000 unit PO DAILY 11/11/15 05/10/20 History Hydroxychloroquine Sulfate 400 mg PO DAILY 11/11/15 05/10/20 History [Plaquenil] Losartan Potassium [Cozaar] 100 mg PO QAM 11/11/15 05/10/20 History amLODIPine [Norvasc] 5 mg PO QAM 11/11/15 05/10/20 History Furosemide [Lasix] 40 mg PO DAILY 08/22/17 05/10/20 History Timolol 0.5% Ophth Soln [Timoptic 1 drop BOTH EYES BID 08/22/17 05/10/20 History 0.5% Ophth Soln] Atorvastatin [Lipitor] 10 mg PO HS 02/02/19 05/10/20 History ALPRAZolam [Xanax] 0.25 mg PO TID PRN 07/28/19 05/10/20 History Doxycycline [Vibramycin] 100 mg PO QAM 07/28/19 05/10/20 History Olopatadine HCl [Pataday] 1 drop BOTH EYES BID 07/28/19 05/10/20 History Famotidine [Pepcid] 20 mg PO BID 05/10/20 05/10/20 History Allergies Allergy/AdvReac Type Severity Reaction Status Date / Time shellfish derived [Shellfish] Allergy Anaphylaxis Verified 05/10/20 10:41 venom-honey bee Allergy Anaphylaxis Verified 05/10/20 10:41 [bee venom (honey bee)] codeine AdvReac Nausea & Verified 05/10/20 10:41 Vomiting Iodinated Contrast Media AdvReac Unknown Verified 05/10/20 10:41 [Iodinated Contrast- Oral and IV Dye] labetalol AdvReac "pinging Verified 05/10/20 10:41 in head" metal brittany AdvReac fever Uncoded 05/10/20 10:41 Exam Vital Signs Temp Pulse Resp BP Pulse Ox 05/10/20 10:42 98.4 F 93 18 122/80 95 Intake and Output 05/09/20 05/10/20 05/10/20 22:59 06:59 14:59 Other: Weight 110.677 kg Height 5 feet 5 inches, weight 244 pounds, BMI 40.6. This is a well-developed well-nourished white female who is alert and oriented times 3 in no acute distress. HEENT: Within normal limits. NECK: Supple without mass or thyromegaly. CHEST AND LUNGS: Clear to auscultation. HEART: Regular rate and rhythm. BREASTS: Are without mass or discharge. AXILLARY EXAM: Negative for adenopathy. BACK: Negative for CVA tenderness. ABDOMEN: Soft, nontender, without palpable masses. PELVIC EXAM: External genitalia appears normal with mild atrophy. Vagina appears normal with mild atrophy. There is no evidence of prolapse. Bimanual examination is negative for mass or tenderness. RECTAL EXAM: Rectovaginal exam is negative for mass or tenderness and is negative for occult blood. EXTREMITIES: Nontender. IMPRESSION: 1. 55-year-old menopausal female status post MARY ANN and left oophorectomy for benign reasons with normal gynecologic exam. 2. History of osteopenia. PLAN: 1. Pap smears have been discontinued. 2. Self breast awareness was discussed with the patient. 3. Screening mammogram will be done today. 4. Osteoporosis prevention was discussed. I have stressed the importance of adequate calcium, vitamin D and regular exercise. Recommended amounts of calcium and vitamin D were also discussed. 5. I have recommended screening colonoscopy since she has not had this done. She states she will be with her PCP about arranging for this. 6. She was advised to return in one year for her annual well woman exam.
--- NOTE | 2020-05-11 10:31 | MM ---
Reason for exam: screening (asymptomatic). Last mammogram was performed 1 year and 3 months ago. History: Family history of breast cancer in mother at age 79. Physical Findings: A clinical breast exam by your physician is recommended on an annual basis and results should be correlated with mammographic findings. MG 3D Screening Mammo W/Cad Bilateral CC and MLO view(s) were taken. Prior study comparison: February 02, 2019, bilateral MG 3d screening mammo w/cad. November 25, 2017, bilateral MG 3d screening mammo w/cad. The breast tissue is heterogeneously dense. This may lower the sensitivity of mammography. There is no discrete abnormality. No significant changes when compared with prior studies. ASSESSMENT: Negative, BI-RAD 1 RECOMMENDATION: Routine screening mammogram of both breasts in 1 year.
== END | disposition home or self-care (01) ==
LOC: WWCWWP 10:25
PROVIDERS: ATTEND Obstetrics & Gynecology
DX: Z12.31 Encounter for screening mammogram for malignant neoplasm of breast (principal)
CPT/HCPCS: 77063; 77067

== ENCOUNTER → 2020-06-19 | Outpatient (CLI) | payer BC ==
[2020-06-19 11:04] LABS: Basophils # (A) 0.1 k/uL (0-0.2); Basophils % (A) 1 %; Eosinophils # (A) 0.2 k/uL (0-0.7); Eosinophils % (A) 4 %; HCT 44.2 % (34.0-46.0); HGB 13.9 gm/dL (11.4-16.0); Lymphocytes # (A) 1.7 k/uL (1.0-4.8); Lymphocytes % (A) 33 %; MCH 29.4 pg (25.0-35.0); MCHC 31.3 g/dL (31.0-37.0); MCV 93.8 fL (80.0-100.0); Mean Platelet Volume 6.7; Monocytes # (A) 0.3 k/uL (0-1.0); Monocytes % (A) 6 %; Neutrophils # (A) 2.7 k/uL (1.3-7.7); Neutrophils % (A) 53 %; Platelet Count 303 k/uL (150-450); RBC 4.71 m/uL (3.80-5.40); RDW 13.1 % (11.5-15.5)
[2020-06-19 11:49] LABS: Appearance,Urine Clear (Clear); Bilirubin,Urine Negative (Negative); Blood,Urine Negative (Negative); Color,Urine Yellow; Glucose,Urine (UA) Negative (Negative); Ketones,Urine Negative (Negative); Leukocyte Esterase,Urine Negative (Negative); Nitrite,Urine Negative (Negative); Protein,Urine Trace (Negative); Specific Gravity,Urine 1.024 (1.001-1.035); Urobilinogen,Urine <2.0 mg/dL (<2.0)
[2020-06-19 14:55] LABS: African American GFR (CKD) 94.9 (60.0-200.0); Albumin 4.5 g/dL (3.80-4.90); Albumin/Globulin Ratio 1.96 (1.60-3.17); Anion Gap 7.3 mmol/L (4.00-12.00); Calcium 9.8 mg/dL (8.7-10.3); Carbon Dioxide 27.7 mmol/L (21.6-31.8); Chol/HDL Ratio 3.18; Globulin 2.3 g/dL (1.6-3.3); LDL Cholesterol,Calculated 84.8 mg/dL (0.0-131.0); Non-African American GFR(CKD) 81.8 (60.0-200.0); Potassium 4.4 mmol/L (3.5-5.5); Total Bilirubin 0.7 mg/dL (0.3-1.2); Total Protein 6.8 g/dL (6.2-8.2); VLDL Calculation 24.2 mg/dL (5.00-40.00)
== END | disposition home or self-care (01) ==
LOC: LABWHC1 09:54
PROVIDERS: ATTEND Internal Medicine
DX: I10 Essential (primary) hypertension (principal); R00.0 Tachycardia, unspecified; E55.9 Vitamin D deficiency, unspecified
CPT/HCPCS: 36415; 80053; 80061; 81003; 82306; 84443; 85025

== ENCOUNTER → 2020-07-24 | Outpatient (CLI) | payer BC ==
--- NOTE | 2020-07-24 09:46 | CT ---
EXAMINATION TYPE: CT chest w con DATE OF EXAM: 07/24/2020 COMPARISON: HISTORY: Lt supraclavicular swelling CT DLP: 682.9 mGycm Automated exposure control for dose reduction was used. CONTRAST: CT scan of the chest is performed with IV Contrast, patient injected with 100 mL of Isovue 300. FINDINGS: LUNGS: The lungs are grossly clear, there is no concerning parenchymal mass or nodule identified. T here is no pleural effusion or pneumothorax seen. The tracheobronchial tree is patent. MEDIASTINUM: There are no greater than 1 cm hilar or mediastinal lymph nodes. No pericardial effusi on is seen. Thoracic aorta is of normal caliber. The heart is not enlarged. UPPER ABDOMEN: No significant abnormality appreciated. OTHER: No evidence for supraclavicular adenopathy. IMPRESSION: No adenopathy appreciated. No distinct abnormality seen.
== END | disposition home or self-care (01) ==
LOC: RADCTMAIN 09:02
PROVIDERS: ATTEND Internal Medicine
DX: R59.0 Localized enlarged lymph nodes (principal)
CPT/HCPCS: 71260; Q9967

== ENCOUNTER → 2020-12-08 | Day surgery (SDC) | payer BC ==
[2020-12-06 09:25] VITALS: BMI 39.0
[~2020-12-08] MED LIST changes: -ACETAMINOPHEN TAB 500 MG TAB PO ONE; -DEXAMETHASONE SOD PHOSPHATE 10 MG/ML 1 ML VIAL IV ONE; -GABAPENTIN 300 MG CAP PO ONE; -HYDROmorphone 0.5 MG/0.5 ML SYRINGE IVP PRN; +LACTATED RINGERS 1,000 ML IV SCH; -LIDOCAINE 1% 20 ML VIAL (10MG/ML) FOR IV START INTRADERMA PRN; -MELOXICAM 7.5 MG TAB PO ONE; -MIDAZOLAM 2 MG/2 ML VIAL IV PRN; +MIDAZOLAM 2 MG/2 ML VIAL ONE; -ONDANSETRON 4 MG/2 ML VIAL IVP ONE; +PROPOFOL 10 MG/ML 20 ML VIAL IV ONE; -ROPIVACAINE 246.25 MG, EPINEPHrine 0.5 MG, KETOROLAC 30 MG, cloNIDine HCL/PF 80 MCG, WA... MISCELLANE ONE; -SCOPOLAMINE 1.5MG/72HR PATCH TRANSDERM ONE; -TRANEXAMIC ACID 1,000 MG in SODIUM CHLORIDE 0.9% 100 ML IVPB ONE; +fentaNYL (PF) 50 MCG/ML 2 ML AMP ONE
[2020-12-08 07:17] VITALS: RESP 16; TEMP 97.8
[2020-12-08 07:35] LABS: Glucose,Whole Blood 111 mg/dL (75-99)
[2020-12-08 08:09] VITALS: BP 96/67; PULSE 83
--- NOTE | 2020-12-22 13:22 | P.PCN ---
Date of Procedure: 12/14/20 Procedure(s) Performed: BRIEF HISTORY: Patient is a 55-year-old, pleasant, white female scheduled for an upper endoscopy as a part of evaluation of GERD and epigastric pain for the last few months duration.. She was initially on Pepcid 20 mg daily but lately because of worsening symptoms. Omeprazole 20 mg daily and doing much better. PROCEDURE PERFORMED: Esophagogastroduodenoscopy with biopsy. PREOPERATIVE DIAGNOSIS: GERD. IV sedation per anesthesia. PROCEDURE: After informed consent was obtained, the patient was brought into the endoscopy unit. IV sedation was administered by Anesthesia under continuous monitoring. Initially the Olympus GIF-140 video endoscope was inserted into the mouth. Esophagus intubated without any difficulty. It was gradually advanced into the stomach and duodenum and carefully examined. The bulb and the second part of the duodenum appeared normal. The scope at this time was withdrawn to the stomach, adequately insufflated with air, and upon careful examination, mucosa of the antrum had mild gastritis and biopsies were done from this area. The, body, cardia and the fundus appeared normal. The scope was then withdrawn into the esophagus. The GE junction was located at 39 cm from the incisors. The esophagus appeared normal. There were no erosions or ulcerations seen , biopsies were done from the distal esophagus and the patient tolerated the procedure well. IMPRESSION: 1. Mild antral gastritis. 2. Normal-appearing esophagus with no evidence of esophagitis or Rodriguez's esophagus. RECOMMENDATIONS: The findings of this examination were discussed with the patient as well as her family. She was advised to follow with the biopsy results. Intermittent she will continue with omeprazole 20 mg daily and follow antireflux measures..
== END ==
LOC: ORWHC2ENDO 06:54
PROVIDERS: ATTEND Internal Medicine Gastroenterology
DX: K21.00 Gastro-esophageal reflux disease with esophagitis, without bleeding (principal); K31.9 Disease of stomach and duodenum, unspecified; K29.50 Unspecified chronic gastritis without bleeding; I10 Essential (primary) hypertension; E11.9 Type 2 diabetes mellitus without complications; M79.7 Fibromyalgia; M06.9 Rheumatoid arthritis, unspecified; Z79.899 Other long term (current) drug therapy; Z91.013 Allergy to seafood; Z88.5 Allergy status to narcotic agent; Z91.048 Other nonmedicinal substance allergy status; Z88.8 Allergy status to other drugs, medicaments and biological substances; Z79.84 Long term (current) use of oral hypoglycemic drugs
CPT/HCPCS: 43239; 88305; J2250; J3010; J2704

== ENCOUNTER 2021-03-21 21:44 | Inpatient (IN) | payer BC ==
[2021-03-21] MEDS ORDERED: HYDROmorphone 1 MG/ML 1 ML SYRINGE IVP STA (22:30)
[2021-03-21] MEDS ORDERED: ONDANSETRON 4 MG/2 ML VIAL IVP STA (22:31)
--- NOTE | 2021-03-21 22:34 | ED ---
General Adult HPI - General Chief complaint: Back Pain/Injury Stated complaint: Fall, back pain Time Seen by Provider: 03/21/21 21:48 Source: patient, EMS Mode of arrival: EMS - History of Present Illness Initial comments: 56-year-old female with a past medical history of diabetes mellitus, fibromyalgia, GERD, hypertension presents to the emergency room for a chief complaint of left sided back pain. Patient reports that she was mopping and she slipped and fell on her bottom and back. States that she is having mid back pain as well as left-sided mid back pain. Patient did not hit her head. Patient does not take blood thinners. Patient denies bladder or bowel changes, saddle anesthesia, weakness in the legs, or fevers chills. Patient has no other complaints at this time including shortness of breath, chest pain, abdominal pain, nausea or vomiting, headache, or visual changes. - Related Data Home Medications Medication Instructions Recorded Confirmed Acetaminophen Tab [Tylenol Tab] 500 mg PO QID PRN 11/11/15 03/21/21 Cholecalciferol [Vitamin D3] 2,000 unit PO DAILY 11/11/15 03/21/21 Hydroxychloroquine Sulfate 200 mg PO BID 11/11/15 03/21/21 [Plaquenil] Losartan Potassium [Cozaar] 100 mg PO DAILY 11/11/15 03/21/21 amLODIPine [Norvasc] 5 mg PO DAILY 11/11/15 03/21/21 Furosemide [Lasix] 40 mg PO DAILY 08/22/17 03/21/21 Timolol 0.5% Ophth Soln [Timoptic 1 drop BOTH EYES BID 08/22/17 03/21/21 0.5% Ophth Soln] Atorvastatin [Lipitor] 10 mg PO HS 02/02/19 03/21/21 ALPRAZolam [Xanax] 0.25 mg PO TID PRN 07/28/19 03/21/21 Doxycycline [Vibramycin] 100 mg PO DAILY 07/28/19 03/21/21 Olopatadine HCl [Pataday] 1 drop BOTH EYES BID 07/28/19 03/21/21 Metoprolol Tartrate [Lopressor] 12.5 mg PO DAILY 12/06/20 03/21/21 Cetirizine HCl [Zyrtec] 10 mg PO DAILY 03/21/21 03/21/21 Famotidine [Pepcid] 20 mg PO BID 03/21/21 03/21/21 Semaglutide [Ozempic] 0.5 mg SQ DYSON 03/21/21 03/21/21 buPROPion HCL [Wellbutrin XL] 150 mg PO DAILY 03/21/21 03/21/21 metFORMIN HCL ER [Glucophage XR] 1,000 mg PO DAILY 03/21/21 03/21/21 Allergies Allergy/AdvReac Type Severity Reaction Status Date / Time latanoprost Allergy Itching Verified 03/21/21 22:31 shellfish derived [Shellfish] Allergy Anaphylaxis Verified 12/08/20 07:19 venom-honey bee Allergy Anaphylaxis Verified 12/08/20 07:19 [bee venom (honey bee)] codeine AdvReac Nausea & Verified 12/08/20 07:19 Vomiting Iodinated Contrast Media AdvReac Unknown Verified 12/08/20 07:19 [Iodinated Contrast- Oral and IV Dye] labetalol AdvReac "pinging Verified 12/08/20 07:19 in head" metal brittany AdvReac fever Uncoded 12/08/20 07:19 Review of Systems ROS Statement: Those systems with pertinent positive or pertinent negative responses have been documented in the HPI. ROS Other: All systems not noted in ROS Statement are negative. Past Medical History Past Medical History: Diabetes Mellitus, Eye Disorder, Fibromyalgia, GERD/Reflux, Hypertension, Rheumatoid Arthritis (RA) Additional Past Medical History / Comment(s): hyperparathyroidism improved after parathyroidectomy, seasonal ALLERGIES, glaucoma, fibromyalgia, and osteopenia, DIFFICULTY SWALLOWING PILLS History of Any Multi-Drug Resistant Organisms: MRSA Date of last positivie culture/infection: 2016 MDRO Source:: nasal swab positive Past Surgical History: Appendectomy, Cholecystectomy, Hysterectomy, Joint Replacement, Orthopedic Surgery, Tubal Ligation Additional Past Surgical History / Comment(s): tubal reversal & then another tubal, arthroscopy knee, carpal tunnel repair. MARY ANN with left oophorectomy in 1998, right salpingectomy, VTP. BILAT TKA, Past Anesthesia/Blood Transfusion Reactions: Previous Problems w/ Anesthesia Additional Past Anesthesia/Blood Transfusion Reaction / Comment(s): slow to wake up, hx. of "fever" after 2 surgeries-once as kid, other w/6 hour tubal reversal- low grade temp., thought was from anesthesia, has never heard of malignant hyperthermia & no family hx. of, mom has low O2 sats after surg. Past Psychological History: Anxiety Smoking Status: Never smoker Past Alcohol Use History: None Reported Past Drug Use History: None Reported - Past Family History Mother Family Medical History: Cancer Additional Family Medical History / Comment(s): Breast cancer. Father Family Medical History: COPD, Dementia Additional Family Medical History / Comment(s): Parkinson's disease. Daughter(s) Family Medical History: Pulmonary Embolus General Exam General appearance: alert, in no apparent distress Head exam: Present: atraumatic, normocephalic, normal inspection Eye exam: Present: normal appearance, PERRL, EOMI. Absent: scleral icterus, conjunctival injection, periorbital swelling ENT exam: Present: normal exam, mucous membranes moist Neck exam: Present: normal inspection, full ROM. Absent: tenderness, meningismus, lymphadenopathy Respiratory exam: Present: normal lung sounds bilaterally. Absent: respiratory distress, wheezes, rales, rhonchi, stridor Cardiovascular Exam: Present: regular rate, normal rhythm, normal heart sounds. Absent: systolic murmur, diastolic murmur, rubs, gallop, clicks GI/Abdominal exam: Present: soft, normal bowel sounds. Absent: distended, tenderness, guarding, rebound, rigid Back exam: Present: paraspinal tenderness (Left-sided thoracic paraspinal tenderness. No ecchymosis.), vertebral tenderness (Patient has lower thoracic spine tenderness.). Absent: CVA tenderness (R), CVA tenderness (L) Neurological exam: Present: alert Course Vital Signs 03/21/21 21:46 Temperature 96.6 F L Pulse Rate 92 Respiratory 20 Rate Blood Pressure 117/72 O2 Sat by Pulse 93 L Oximetry Medical Decision Making - Medical Decision Making Vitals stable. Patient does have mid low back pain. Neurovascular status intact in lower extremities bilaterally. Strength 5 out of 5. Sensation intact. DP pulses 2+. X-ray of the thoracic spine showed a compression fracture of the L1 vertebrae with 50% anterior wedging. CT was obtained which revealed acute compression fracture of T12, 50% anterior wedging. Consistent with acute compression fracture. Patient reevaluated, continues to have pain after several doses of Dilaudid. Patient will be admitted for intractable back pain, pain management - Lab Data Result diagrams: 03/22/21 01:18 Lab Results 03/22/21 Range/Units 01:18 WBC 12.3 H (3.8-10.6) k/uL RBC 4.60 (3.80-5.40) m/uL Hgb 13.7 (11.4-16.0) gm/dL Hct 41.8 (34.0-46.0) % MCV 91.0 (80.0-100.0) fL MCH 29.9 (25.0-35.0) pg MCHC 32.8 (31.0-37.0) g/dL RDW 12.9 (11.5-15.5) % Plt Count 280 (150-450) k/uL MPV 7.2 Neutrophils % 87 % Lymphocytes % 8 % Monocytes % 4 % Eosinophils % 0 % Basophils % 0 % Neutrophils # 10.7 H (1.3-7.7) k/uL Lymphocytes # 1.0 (1.0-4.8) k/uL Monocytes # 0.5 (0-1.0) k/uL Eosinophils # 0.0 (0-0.7) k/uL Basophils # 0.0 (0-0.2) k/uL Disposition Clinical Impression: T12 compression fracture, Fall Disposition: ADMITTED IP TO THIS HOSP Is patient prescribed a controlled substance at d/c from ED?: No Referrals: Arianne Wang MD [Primary Care Provider] - 1-2 days Time of Disposition: 01:51
--- NOTE | 2021-03-21 23:43 | XR ---
EXAMINATION TYPE: XR thoracic spine complete DATE OF EXAM: 03/21/2021 COMPARISON: Chest x-ray 03/19/2019 HISTORY: Back pain TECHNIQUE: 3 views FINDINGS: There is 50% anterior wedging of L1 vertebral body. There is no thoracic paraspinal mass. T horacic vertebra have fairly normal alignment. IMPRESSION: Compression fracture of L1 vertebra could be an acute fracture and is new compared to the CT scan of 07/24/2020.
--- NOTE | 2021-03-21 23:46 | XR ---
EXAMINATION TYPE: XR ribs LT w pa chest xray DATE OF EXAM: 03/21/2021 COMPARISON: Chest x-ray 03/19/2019 HISTORY: Chest pain. Fall. TECHNIQUE: 5 views FINDINGS: Heart size is normal. There is slight blunting left costophrenic angle. There is no pneumot horax. I see no rib fracture. IMPRESSION: No rib fracture seen. There is some mild pleural reaction left lung base that is similar to old exam.
--- NOTE | 2021-03-21 23:49 | XR ---
EXAMINATION TYPE: XR lumbar spine 2 or 3V DATE OF EXAM: 03/21/2021 COMPARISON: NONE HISTORY: Fall. Pain. TECHNIQUE: 3 views FINDINGS: There is 50% anterior wedging of L1 vertebral body. This could be an acute fracture. There is 8mm anterior subluxation of L5 in relation S1. The sacroiliac joints are intact. IMPRESSION: Compression fracture of L1 appears new compared to the CT scan of the chest of 07/24/2020 and is probably an acute fracture. There is a degenerative first-degree L5-S1 spondylolisthesis.
--- NOTE | 2021-03-22 00:29 | CT ---
EXAMINATION TYPE: CT lumbar spine wo con DATE OF EXAM: 03/22/2021 COMPARISON: 03/19/2019 HISTORY: possible L1 FX CT DLP: 1773.4 mGycm Automated exposure control for dose reduction was used. Images obtained from the level of T9 vertebra to the S to vertebra with no contrast. Vertebra have fairly normal alignment. There is approximate 50% anterior wedging of the T12 vertebral body with sharp edges and consistent with an acute compression fracture. The other lumbar vertebra a ppear intact. The lower thoracic vertebra appear intact. There is mild degenerative spur formation. T here is a a few millimeter anterior subluxation of L4 in relation L5. There is no lumbar paraspinal mass. I see no focal bone destruction. The pedicles appear intact. Ther e is no evidence of a burst component. IMPRESSION: Acute compression fracture of T12. This was described as a L1 fracture on other exams but there is sm all rib associated with the fractured vertebral body. No underlying pathologic process. There is a degenerative first-degree L4-5 spondylolisthesis.
[2021-03-22 01:48] LABS: Basophils % (A) 0 %; Eosinophils % (A) 0 %; HCT 41.8 % (34.0-46.0); HGB 13.7 gm/dL (11.4-16.0); Lymphocytes % (A) 8 %; MCH 29.9 pg (25.0-35.0); MCHC 32.8 g/dL (31.0-37.0); Mean Platelet Volume 7.2; Monocytes # (A) 0.5 k/uL (0-1.0); Monocytes % (A) 4 %; Neutrophils # (A) 10.7 k/uL (1.3-7.7); Neutrophils % (A) 87 %; Platelet Count 280 k/uL (150-450); RDW 12.9 % (11.5-15.5); WBC 12.3 k/uL (3.8-10.6)
[2021-03-22] MEDS ORDERED: NALOXONE 0.4 MG/ML 1 ML VIAL IV PRN (01:52)
[2021-03-22] MEDS ORDERED: ONDANSETRON 4 MG/2 ML VIAL IVP PRN (01:52)
[2021-03-22] MEDS ORDERED: ACETAMINOPHEN TAB 500 MG TAB PO PRN (01:53)
[2021-03-22] MEDS ORDERED: ALPRAZolam 0.25 MG TAB PO PRN (01:53)
[2021-03-22 02:05] LABS: Albumin 4.5 g/dL (3.5-5.0); Calcium 9.8 mg/dL (8.4-10.2); Potassium 4.2 mmol/L (3.5-5.1); Total Bilirubin 0.8 mg/dL (0.2-1.3); Total Protein 6.9 g/dL (6.3-8.2)
[2021-03-22] MEDS: HYDROmorphone 0.5 MG/0.5 ML SYRINGE IVP PRN ×6 (02:37→21:08)
[2021-03-22] MEDS: SODIUM CHLORIDE 0.9% 1,000 ML IV SCH ×2 (03:18→16:27)
--- NOTE | 2021-03-22 03:21 | P.CONS ---
History of Present Illness - Reason for Consult Consult date: 03/22/21 medical management Requesting physician: Martha Goff - Chief Complaint back pain - History of Present Illness 56-year-old female with diabetes, hypertension, fibromyalgia Patient presented after sustaining an accidental fall at home and she sleeps on with the floors fell on her bottom and felt immediate pain in her back and get up at 2 crawl to the phone and called for help. She denies any nausea vomiting head injury or passing out denies any symptoms of chest pain or palpitation preceding the fall she believes it's totally accidental mechanical fall. She denies being on any blood thinners. Currently denies any focal neuro deficits in her lower extremities denies any sudden numbness or paresthesia denies any loss of bowel or bladder control Imaging in the ED suggested which fracture of T12-L1 Patient had intractable pain in admitted for ortho eval Evaluation, she describes severe pain in her midback nonradiating worse with movement without any focal neuro deficits in the lower extremity Review of Systems Pertinent positives as noted in HPI. All other systems were reviewed and are negative Past Medical History Past Medical History: Diabetes Mellitus, Eye Disorder, Fibromyalgia, GERD/Reflux, Hypertension, Rheumatoid Arthritis (RA) Additional Past Medical History / Comment(s): hyperparathyroidism improved after parathyroidectomy, seasonal ALLERGIES, glaucoma, fibromyalgia, and osteopenia, DIFFICULTY SWALLOWING PILLS History of Any Multi-Drug Resistant Organisms: MRSA Year Discovered:: 2017 MDRO Source:: nasal swab positive Past Surgical History: Appendectomy, Cholecystectomy, Hysterectomy, Joint Replacement, Orthopedic Surgery, Tubal Ligation Additional Past Surgical History / Comment(s): tubal reversal & then another t ubal, arthroscopy knee, carpal tunnel repair. MARY ANN with left oophorectomy in 1998, right salpingectomy, VTP. BILAT TKA, june 2019 parathyroid tumor removed benign Past Anesthesia/Blood Transfusion Reactions: Previous Problems w/ Anesthesia Additional Past Anesthesia/Blood Transfusion Reaction / Comm: slow to wake up, hx. of "fever" after 2 surgeries-once as kid, other w/6 hour tubal reversal-low grade temp., thought was from anesthesia, has never heard of malignant hyperthermia & no family hx. of, mom has low O2 sats after surg. Past Psychological History: Anxiety Smoking Status: Never smoker Past Alcohol Use History: None Reported Past Drug Use History: None Reported - Past Family History Mother Family Medical History: Cancer Additional Family Medical History / Comment(s): Breast cancer. Father Family Medical History: COPD, Dementia Additional Family Medical History / Comment(s): Parkinson's disease. Daughter(s) Family Medical History: Pulmonary Embolus Medications and Allergies Home Medications Medication Instructions Recorded Confirmed Type Acetaminophen Tab [Tylenol Tab] 500 mg PO QID PRN 11/11/15 03/21/21 History Cholecalciferol [Vitamin D3] 2,000 unit PO DAILY 11/11/15 03/21/21 History Hydroxychloroquine Sulfate 200 mg PO BID 11/11/15 03/21/21 History [Plaquenil] Losartan Potassium [Cozaar] 100 mg PO DAILY 11/11/15 03/21/21 History amLODIPine [Norvasc] 5 mg PO DAILY 11/11/15 03/21/21 History Furosemide [Lasix] 40 mg PO DAILY 08/22/17 03/21/21 History Timolol 0.5% Ophth Soln [Timoptic 1 drop BOTH EYES BID 08/22/17 03/21/21 History 0.5% Ophth Soln] Atorvastatin [Lipitor] 10 mg PO HS 02/02/19 03/21/21 History ALPRAZolam [Xanax] 0.25 mg PO TID PRN 07/28/19 03/21/21 History Doxycycline [Vibramycin] 100 mg PO DAILY 07/28/19 03/21/21 History Olopatadine HCl [Pataday] 1 drop BOTH EYES BID 07/28/19 03/21/21 History Metoprolol Tartrate [Lopressor] 12.5 mg PO DAILY 12/06/20 03/21/21 History Cetirizine HCl [Zyrtec] 10 mg PO DAILY 03/21/21 03/21/21 History Famotidine [Pepcid] 20 mg PO BID 03/21/21 03/21/21 History Semaglutide [Ozempic] 0.5 mg SQ DYSON 03/21/21 03/21/21 History buPROPion HCL [Wellbutrin XL] 150 mg PO DAILY 03/21/21 03/21/21 History metFORMIN HCL ER [Glucophage XR] 1,000 mg PO DAILY 03/21/21 03/21/21 History Allergies Allergy/AdvReac Type Severity Reaction Status Date / Time latanoprost Allergy Itching Verified 03/21/21 22:31 shellfish derived [Shellfish] Allergy Anaphylaxis Verified 12/08/20 07:19 venom-honey bee Allergy Anaphylaxis Verified 12/08/20 07:19 [bee venom (honey bee)] codeine AdvReac Nausea & Verified 12/08/20 07:19 Vomiting Iodinated Contrast Media AdvReac Unknown Verified 12/08/20 07:19 [Iodinated Contrast- Oral and IV Dye] labetalol AdvReac "pinging Verified 12/08/20 07:19 in head" metal brittany AdvReac fever Uncoded 12/08/20 07:19 Physical Exam Vitals: Vital Signs Temp Pulse Pulse Resp BP BP Pulse Ox 03/22/21 02:58 99.1 F 97 16 113/77 95 03/22/21 02:49 67 16 120/69 100 03/21/21 21:46 96.6 F L 92 20 117/72 93 L Intake and Output 03/21/21 03/21/21 03/22/21 14:59 22:59 06:59 Other: Weight 110.677 kg 110.677 kg Constitutional: No acute distress, conversant, pleasant Eyes: Anicteric sclerae, moist conjunctiva, Pupils equal round reactive to light ENMT: NC/AT Oropharynx clear, no erythema, or exudates Neck: Supple, FROM, no masses, or JVD No carotid bruits No thyromegaly Lungs: Clear to auscultation Clear to percussion Normal respiratory effort, no accessory muscle use Cardiovascular: Heart regular in rate and rhythm, No murmurs, gallops, or rubs No peripheral edema Abdominal: Soft Nontender, no guarding, rebound or rigidity Abdomen moving with respiration Normoactive bowel sounds No hepatomegaly, No splenomegaly No palpable mass No abdominal wall hernia noted Skin: Normal temperature, tone, texture, turgor No induration No subcutaneous nodules No rash, lesions No ulcers Extremities: Point tenderness in fact on physical wounds cuts erythema or swelling No digital cyanosis No clubbing Pedal pulses intact and symmetrical Radial pulses intact and symmetrical No calf tenderness Psychiatric: Alert and oriented to person, place and time Appropriate affect fair judgement Neuro Muscles Strength 5/5 in all 4 extremities Sensation to light touch grossly present throughout Cranial nerves II-XII grossly intact No focal sensory deficits Lymphatics: no palpable cervical or supraclavicular , or inguinal lymph nodes Results CBC & Chem 7: 03/22/21 01:18 03/22/21 01:18 Labs: Abnormal Lab Results - Last 24 Hours (Table) 03/22/21 03/22/21 Range/Units 01:18 01:18 WBC 12.3 H (3.8-10.6) k/uL Neutrophils # 10.7 H (1.3-7.7) k/uL BUN 26 H (7-17) mg/dL Glucose 145 H (74-99) mg/dL AST 177 H (14-36) U/L ALT 92 H (4-34) U/L Assessment and Plan Assessment: Counseled accidental mechanical fall at home resulting in intractable back pain Wedge fracture acute T12 L1, secondary to above management per primary team pain control chronic conditions pre DM , continue with metformin hypertension , continue with home BP meds fibromyalgia follow up labs CBC, CMP stable from a medical stand point Thank you for allowing us to participate in the care of this patient. Do not hesitate to contact us with questions. Someone can be reached from the [facility] hospitalist group at all hours of the day at [phone].
[2021-03-22 07:31] LABS: ALT 406 U/L (4-34); AST 578 U/L (14-36); African American GFR (CKD) >90 (>60 ml/min/1.73 sqM); Albumin/Globulin Ratio 1.7; Alkaline Phosphatase 120 U/L (38-126); Anion Gap 7 mmol/L; Blood Urea Nitrogen 23 mg/dL (7-17); Calcium 9.6 mg/dL (8.4-10.2); Carbon Dioxide 30 mmol/L (22-30); Chloride 102 mmol/L (98-107); Globulin 2.4 g/dL; Glucose 126 mg/dL (74-99); Non-African American GFR(CKD) 85 (>60 ml/min/1.73 sqM); Sodium 139 mmol/L (137-145); Total Bilirubin 0.5 mg/dL (0.2-1.3); Total Protein 6.4 g/dL (6.3-8.2)
[2021-03-22 07:42] LABS: Basophils % (A) 0 %; Eosinophils % (A) 0 %; HCT 40.5 % (34.0-46.0); HGB 12.6 gm/dL (11.4-16.0); Lymphocytes # (A) 1.1 k/uL (1.0-4.8); Lymphocytes % (A) 16 %; MCH 29.6 pg (25.0-35.0); MCHC 31.2 g/dL (31.0-37.0); MCV 94.7 fL (80.0-100.0); Mean Platelet Volume 6.8; Monocytes # (A) 0.4 k/uL (0-1.0); Monocytes % (A) 6 %; Neutrophils # (A) 5.2 k/uL (1.3-7.7); Neutrophils % (A) 76 %; Platelet Count 264 k/uL (150-450); RBC 4.27 m/uL (3.80-5.40); RDW 13.6 % (11.5-15.5); WBC 6.9 k/uL (3.8-10.6)
[2021-03-22] MEDS: METOPROLOL TARTRATE 12.5 MG TAB PO SCH (08:23)
[2021-03-22] MEDS: LOSARTAN 50 MG TAB PO SCH (08:24)
[2021-03-22] MEDS: buPROPion XL 150 MG TAB.ER.24H PO SCH (08:25)
[2021-03-22] MEDS: FUROSEMIDE 40 MG TAB PO SCH (08:25)
[2021-03-22] MEDS: LORATADINE 10 MG TAB PO SCH (08:25)
[2021-03-22] MEDS: FAMOTIDINE 20 MG TAB PO SCH ×2 (08:25→21:09)
[2021-03-22] MEDS: amLODIPine 5 MG TAB PO SCH (08:25)
[2021-03-22] MEDS: CHOLECALCIFEROL 25 MCG (1000 IU) TABLET PO SCH (08:25)
[2021-03-22] MEDS: HYDROXYCHLOROQUINE SULFATE 200 MG TAB PO SCH ×2 (08:26→21:10)
[2021-03-22] MEDS: TIMOLOL 0.5% OPHTH DROPS 5 ML BTL BOTH EYES SCH ×2 (08:26→21:11)
[2021-03-22] MEDS: KETOTIFEN 0.025% OPHTH DROPS 5 ML BTL BOTH EYES SCH ×2 (08:26→21:10)
[2021-03-22] MEDS ORDERED: metFORMIN 500 MG TAB PO SCH (09:00)
[2021-03-22] MEDS: DOXYCYCLINE 100 MG CAP PO SCH (09:48)
[2021-03-22] MEDS ORDERED: CYCLOBENZAPRINE 10 MG TAB PO PRN (10:41)
--- NOTE | 2021-03-22 10:48 | P.HPOR ---
History of Present Illness H&P Date: 03/22/21 Chief Complaint: Mid back pain Patient's pleasant 56-year-old female who sustained a fall yesterday and had sudden acute onset of mid back pain. Apparently she was doing some mopping around her laundry room and slipped and fell on her rear end and had sudden acute pain shoot up the middle of her back. She had a crawl back into the house from there and presented to the emergency room. She was having intractable pain was able to mobilize and was found to have a new compression fracture at T12. She is not having any neurologic deficit. Not having any changes in bowel bladder function. Denies any prior significant problems like this one but she does have some chronic pain in her lower back. She has history of rheumatoid arthritis and his history of total knee replacement bilaterally. She denies any chest pain or shortness breath. Denies any neck pain. Denies a problems in her upper extremity is. Review of Systems As stated in HPI. She denies any chest pain shortness breath. Denies any neck pain. Denies any change in bowel bladder function. Denies any weakness in her lower extremities. Denies any neurologic change in her lower extremities. Past Medical History Past Medical History: Diabetes Mellitus, Eye Disorder, Fibromyalgia, GERD/Reflux, Hypertension, Rheumatoid Arthritis (RA) Additional Past Medical History / Comment(s): hyperparathyroidism improved after parathyroidectomy, seasonal ALLERGIES, glaucoma, fibromyalgia, and osteopenia, DIFFICULTY SWALLOWING PILLS History of Any Multi-Drug Resistant Organisms: MRSA Date of last positivie culture/infection: 2016 MDRO Source:: nasal swab positive Past Surgical History: Appendectomy, Cholecystectomy, Hysterectomy, Joint Replacement, Orthopedic Surgery, Tubal Ligation Additional Past Surgical History / Comment(s): tubal reversal & then another tubal, arthroscopy knee, carpal tunnel repair. MARY ANN with left oophorectomy in 1998, right salpingectomy, VTP. BILAT TKA, june 2019 parathyroid tumor removed benign Past Anesthesia/Blood Transfusion Reactions: Previous Problems w/ Anesthesia Additional Past Anesthesia/Blood Transfusion Reaction / Comment(s): slow to wake up, hx. of "fever" after 2 surgeries-once as kid, other w/6 hour tubal reversal- low grade temp., thought was from anesthesia, has never heard of malignant hyperthermia & no family hx. of, mom has low O2 sats after surg. Past Psychological History: Anxiety Smoking Status: Never smoker Past Alcohol Use History: None Reported Past Drug Use History: None Reported - Past Family History Mother Family Medical History: Cancer Additional Family Medical History / Comment(s): Breast cancer. Father Family Medical History: COPD, Dementia Additional Family Medical History / Comment(s): Parkinson's disease. Daughter(s) Family Medical History: Pulmonary Embolus Medications and Allergies Home Medications Medication Instructions Recorded Confirmed Type Acetaminophen Tab [Tylenol Tab] 500 mg PO QID PRN 11/11/15 03/21/21 History Cholecalciferol [Vitamin D3] 2,000 unit PO DAILY 11/11/15 03/21/21 History Hydroxychloroquine Sulfate 200 mg PO BID 11/11/15 03/21/21 History [Plaquenil] Losartan Potassium [Cozaar] 100 mg PO DAILY 11/11/15 03/21/21 History amLODIPine [Norvasc] 5 mg PO DAILY 11/11/15 03/21/21 History Furosemide [Lasix] 40 mg PO DAILY 08/22/17 03/21/21 History Timolol 0.5% Ophth Soln [Timoptic 1 drop BOTH EYES BID 08/22/17 03/21/21 History 0.5% Ophth Soln] Atorvastatin [Lipitor] 10 mg PO HS 02/02/19 03/21/21 History ALPRAZolam [Xanax] 0.25 mg PO TID PRN 07/28/19 03/21/21 History Doxycycline [Vibramycin] 100 mg PO DAILY 07/28/19 03/21/21 History Olopatadine HCl [Pataday] 1 drop BOTH EYES BID 07/28/19 03/21/21 History Metoprolol Tartrate [Lopressor] 12.5 mg PO DAILY 12/06/20 03/21/21 History Cetirizine HCl [Zyrtec] 10 mg PO DAILY 03/21/21 03/21/21 History Famotidine [Pepcid] 20 mg PO BID 03/21/21 03/21/21 History Semaglutide [Ozempic] 0.5 mg SQ DYSON 03/21/21 03/21/21 History buPROPion HCL [Wellbutrin XL] 150 mg PO DAILY 03/21/21 03/21/21 History metFORMIN HCL ER [Glucophage XR] 1,000 mg PO DAILY 03/21/21 03/21/21 History Cyclobenzaprine [Flexeril] 10 mg PO TID PRN #90 tab 03/22/21 Rx HYDROcodone/APAP 5-325MG [[place] 5] 1 each PO Q6HR PRN #28 tab 03/22/21 Rx Allergies Allergy/AdvReac Type Severity Reaction Status Date / Time latanoprost Allergy Itching Verified 03/21/21 22:31 shellfish derived [Shellfish] Allergy Anaphylaxis Verified 12/08/20 07:19 venom-honey bee Allergy Anaphylaxis Verified 12/08/20 07:19 [bee venom (honey bee)] codeine AdvReac Nausea & Verified 12/08/20 07:19 Vomiting Iodinated Contrast Media AdvReac Unknown Verified 12/08/20 07:19 [Iodinated Contrast- Oral and IV Dye] labetalol AdvReac "pinging Verified 12/08/20 07:19 in head" metal brittany AdvReac fever Uncoded 12/08/20 07:19 Physical Examination Osteopathic Statement: *. No significant issues noted on an osteopathic structural exam other than those noted in the History and Physical/Consult. - L Spine: dermatomal strength & reflexes bilateral Strength: hip flexion: 5/5 (She has tenderness to palpation on her thoracic lumbar junction. There is no open wounds lacerations or abrasions. She has 5 and 5 strength with hip flexion and knee extension dorsal flexion plantarflexion her ankles and feet.) Strength: hip extension: 5/5 (She is no pain with internal action rotation of her hips. She has well-healed incisions at her knees. No signs symptoms of DVT. Sensory is intact throughout.) Strength: knee flexion: 5/5 (No pain at her neck or upper extremity is.) Results - Labs Labs: Abnormal Lab Results - Last 24 Hours (Table) 03/22/21 03/22/21 03/22/21 Range/Units 01:18 01:18 06:54 WBC 12.3 H (3.8-10.6) k/uL Neutrophils # 10.7 H (1.3-7.7) k/uL BUN 26 H 23 H (7-17) mg/dL Glucose 145 H 126 H (74-99) mg/dL AST 177 H 578 H (14-36) U/L ALT 92 H 406 H (4-34) U/L H & H 03/22/21 03/22/21 Range/Units 01:18 06:54 Hgb 13.7 12.6 (11.4-16.0) gm/dL Hct 41.8 40.5 (34.0-46.0) % Result Diagrams: 03/22/21 06:54 03/22/21 06:54 - Diagnostic results Lumbar AP/lateral x-ray: report reviewed, image reviewed CT Scan - lumbar: report reviewed, image reviewed (Imaging of the thoracic and lumbar spine and computed tomography scan is reviewed which shows a 50-60% compression fracture at T12. There is no bony retropulsion. She does have spondylolisthesis L4 5 and facet arthrosis L4 5 L5-S1) Assessment and Plan Assessment: Acute traumatic T12 compression fracture due to a fall with intractable back pain No evidence of neurologic compromise Chronic L4 5 spondylolisthesis with degenerative facet arthrosis L4 5 L5-S1 History of fibromyalgia History of rheumatoid arthritis Plan: Acute traumatic T12 compression fracture due to a fall with intractable back pain No evidence of neurologic compromise Chronic L4 5 spondylolisthesis with degenerative facet arthrosis L4 5 L5-S1 History of fibromyalgia History of rheumatoid arthritis The patient has a new fracture at her thoracic spine with some compression deformity. She's not having neurologic compromise or bony retropulsion and I think that the fracture can be treated conservatively. We have ordered a TLSO brace for her that she should wear whenever she is out of bed or elevated greater than 45. She does not need use of brace while in bed or for bathing. Is okay for her to an plate with the brace intact. His okay for her to get up to a bedside commode her bathroom without the brace intact. I explained this to her at bedside. She is having severe difficulty with her pain but the brace should help alleviate some of that pain. She may do well with oral medication of a short- term narcotic and muscle relaxant we'll prescribe that for her. If she is comfortable with her mobility and pain control with the brace on it is okay for her to be discharged home today. Otherwise she may need to stay again for continued IV pain control. I would like her to have her brace before she leaves. She is not yet received the brace but it is ordered for her. We discussed the possibility of other treatment options ranging from conservative to surgical. We discussed possibly of cervical kyphoplasty with her. I would like to see if she does well with the brace and to see if she is making good progress with this. If she is making good progress she can continue brace use and she may require bracing for 8-12 weeks. If she is not doing well with this on follow-up we could consider surgical intervention with kyphoplasty and we will consider that if she is not doing well. Otherwise it is okay for her to be discharged home when she is stable with her pain control and brace use and mobilization.
--- NOTE | 2021-03-22 11:45 | P.PN ---
Subjective Progress Note Date: 03/22/21 Hospital course: Patient is a very pleasant 56-year-old female with a past medical history of hypertension, hyperlipidemia, type II lxw-[id number]-ywmubgoaj diabetes mellitus, and fibromyalgia. She presented to the hospital with a chief complaint of fall resulting in back pain. Patient reports she fell and slipped onto her buttocks and felt pain in her left side mid back instantly. She denies having any radiation of this pain, involuntary loss of bowel or bladder, saddlebag anesthesias, or experiencing any numbness/tingling/weakness in her extremities. Patient denies having any other injuries sustained from this fall. X-ray thoracic spine revealed a compression fracture of L1 vertebra. X-ray left ribs negative for acute fracture. X-ray lumbar spine revealing a degenerative first- degree L5 through S1 spondylolisthesis. CT lumbar spine revealing a compression fracture of T12. Patient admitted under orthospine specialist and we have been consulted for continued medical management. Physical exam: Patient was seen and fully evaluated at the bedside. Patient lying left lateral recumbent stating she is unable to lie on her back due to persistent pain. Patient reports pain to mid back (lower thoracic region), stating this pain is midline as well as left of vertebral spine upon palpation. Patient denies having any headache, lightheadedness, dizziness, neck pain or stiffness, chest pain or palpitations, shortness of breath, abdominal pain, nausea, vomiting, or experiencing any difficulties with her changes in urinary or bowel function, having any involuntary loss of bowel or bladder, saddlebag anesthesias, or experiencing any numbness/tingling/weakness in her extremities. Vital signs reviewed and stable. General: Nontoxic, no distress and appears stated age. Derm: Skin warm and dry, normal coloration for ethnicity. Head: Atraumatic, normocephalic and symmetric. Eyes: EOMs intact, no lid lag, and anicteric sclera Mouth: no lip lesions, mucus membranes moist Cardiovascular: regular rate and rhythm with normal S1S2, no murmur, positive posterior tibial pulses bilaterally, and cap refill < 2 seconds. Lungs: Respirations even, regular, and unlabored on room air. Lungs CTA bilate rally, no rhonchi, no rales, no wheezing, and no accessory muscle usage. Abdominal: soft, nontender to palpation, no guarding, no appreciable organomegaly Musculoskeletal: ROM intact. No gross muscle atrophy, no edema, no contractures of extremities. Patient with pain to mid back, lower thoracic region upon palpation. Neuro: Speech clear, face symmetrical and CN II-XII grossly intact with no noted focal neuro deficits Psych: Alert and oriented to person, place, time, and situation. Appropriate and pleasant affect. Assessment and Plan of Care: Fall resulting in Intractable back pain with findings of T12 compression fracture -CT lumbar spine revealing a compression fracture of T12. -Neurovascular checks -Bedrest until cleared by orthospine specialist. -Management per primary admitting orthospine specialist team, currently recommending conservative treatment with TLSO brace and bed rest with use of bedside commode only. Hypertension -Monitor vital signs. Continue daily medication regimen with amlodipine and metoprolol. Hyperlipidemia -Continue daily medication regimen with atorvastatin 10 mg nightly. -Heart healthy and carb consistent diet. Type II eum-jcphkro-vzpdhwvym diabetes mellitus -Hold Glucophage and place patient on NovoLog sliding scale Thank you for allowing us to participate in the care of this pleasant patient. Do not hesitate to contact us with questions. Someone can be reached from the [facility] hospitalist group all hours of the day at [phone] or via [employer]. Objective - Vital Signs Vital signs: Vital Signs Temp 98.8 F 03/22/21 07:33 Pulse 96 03/22/21 07:33 Resp 16 03/22/21 07:33 BP 104/70 03/22/21 07:33 Pulse Ox 93 L 03/22/21 07:33 Intake & Output 03/21/21 03/22/21 03/22/21 18:59 06:59 18:59 Intake Total 525 Balance 525 Weight 110.677 kg Intake: Intake, IV Titration 225 Amount Sodium Chloride 0.9% 1, 225 000 ml @ 75 mls/hr IV . [id number] ROSALIO Rx#:[id number] Oral 300 - Labs CBC & Chem 7: 03/22/21 06:54 03/22/21 06:54 Labs: Abnormal Lab Results - Last 24 Hours (Table) 03/22/21 03/22/21 03/22/21 Range/Units 01:18 01:18 06:54 WBC 12.3 H (3.8-10.6) k/uL Neutrophils # 10.7 H (1.3-7.7) k/uL BUN 26 H 23 H (7-17) mg/dL Glucose 145 H 126 H (74-99) mg/dL AST 177 H 578 H (14-36) U/L ALT 92 H 406 H (4-34) U/L
[2021-03-22 16:26] LABS: Glucose,Whole Blood 105 mg/dL (75-99)
[2021-03-22] MEDS: INSULIN ASPART (NovoLOG) 100 UNIT/ML VIAL SQ SCH (16:27)
[2021-03-22 20:00] LABS: Glucose,Whole Blood 116 mg/dL (75-99)
[2021-03-22 20:39] VITALS: RESP 16
[2021-03-22] MEDS ORDERED: ATORVASTATIN 10 MG TAB PO SCH (21:00)
[2021-03-23] MEDS: HYDROmorphone 0.5 MG/0.5 ML SYRINGE IVP PRN (01:56)
[2021-03-23 06:52] LABS: Glucose,Whole Blood 115 mg/dL (75-99)
[2021-03-23] MEDS: LORATADINE 10 MG TAB PO SCH (08:14)
[2021-03-23] MEDS: METOPROLOL TARTRATE 12.5 MG TAB PO SCH (08:14)
[2021-03-23] MEDS: CHOLECALCIFEROL 25 MCG (1000 IU) TABLET PO SCH (08:14)
[2021-03-23] MEDS: amLODIPine 5 MG TAB PO SCH (08:14)
[2021-03-23] MEDS: FAMOTIDINE 20 MG TAB PO SCH (08:14)
[2021-03-23] MEDS: HYDROXYCHLOROQUINE SULFATE 200 MG TAB PO SCH (08:15)
[2021-03-23] MEDS: FUROSEMIDE 40 MG TAB PO SCH (08:15)
[2021-03-23] MEDS: buPROPion XL 150 MG TAB.ER.24H PO SCH (08:15)
[2021-03-23] MEDS: DOXYCYCLINE 100 MG CAP PO SCH (08:15)
[2021-03-23] MEDS: LOSARTAN 50 MG TAB PO SCH (08:16)
[2021-03-23] MEDS: KETOTIFEN 0.025% OPHTH DROPS 5 ML BTL BOTH EYES SCH (08:16)
[2021-03-23] MEDS: TIMOLOL 0.5% OPHTH DROPS 5 ML BTL BOTH EYES SCH (08:18)
[2021-03-23 08:42] LABS: HCT 40.7 % (34.0-46.0); HGB 13.4 gm/dL (11.4-16.0); MCH 29.7 pg (25.0-35.0); MCHC 32.8 g/dL (31.0-37.0); MCV 90.5 fL (80.0-100.0); Platelet Count 229 k/uL (150-450); RDW 12.9 % (11.5-15.5); WBC 8.8 k/uL (3.8-10.6)
--- NOTE | 2021-03-23 08:53 | P.DS ---
Providers Date of admission: 03/22/21 01:56 Expected date of discharge: 03/23/21 Attending physician: Martha Goff Consults: 03/22/21 01:52 Consult Physician Routine Consulting Provider: Shazia Hartman Consult Reason/Comments: medical consult Do you want consulting provider notified?: Yes Primary care physician: Arianne Wang MD - Discharge Diagnosis(es) (1) Intractable back pain Current Visit: Yes Status: Acute (2) Spondylolisthesis at L4-L5 level Current Visit: Yes Status: Acute (3) Lumbar facet arthropathy Current Visit: Yes Status: Acute (4) Facet arthropathy, lumbosacral Current Visit: Yes Status: Acute (5) Diabetes mellitus Current Visit: Yes Status: Acute (6) Hypertension Current Visit: Yes Status: Acute (7) Obesity Current Visit: Yes Status: Acute (8) Headache Current Visit: Yes Status: Acute (9) Oxygen desaturation Current Visit: Yes Status: Acute (10) Fall Current Visit: Yes Status: Acute (11) T12 compression fracture Current Visit: Yes Status: Acute Hospital Course: This is a pleasant 56-year-old female who presented with an acute traumatic T12 compression fracture deformity status post fall with intractable low back pain. She was admitted for further treatment and evaluation. She is also known have a chronic L4-5 spondylolisthesis and L4-5 and L5-S1 degenerative facet arthrosis. Since her admittance to the hospital her pain has been controlled with IV medications. She does feel her pain could be controlled with oral medications. Patient is currently waiting for a TLSO brace to be delivered and fitted appropriately by a local [facility] facility. This prescription was written and provided to case management yesterday. Prescription was also written for the patient to obtain a bedside commode and walker for home use. Patient states these have been obtained. Patient does feel she would like to be discharged home today. She currently denies any lower extremity weakness and radiculopathy bilaterally. Patient is eating and voiding without difficulty. She has continued to be seen and examined by medicine for her other medical diagnoses including diabetes mellitus, hypertension, and fibromyalgia. Nursing and the patient states overnight she did have some oxygen desaturation with her oxygen levels in the 80s. She is currently on 2 L of O2 in the room saturation levels in the 90s. We did discuss patient must be cleared by medicine prior to discharge home. She does have a mild headache this morning as well which she feels will be controlled with Tylenol. Condition on day of discharge stable. Patient will be discharged home. He is encouraged to utilize a walker to aid in ambulation. She may use a bedside commode as needed. Patient will be cleared for discharge from orthopedic spine standpoint once her TLSO brace has been delivered and fitted appropriately. Once this brace is delivered and fitted appropriately, patient should wear this brace while sitting upright at greater than 45, while working with therapy, and while ambulating; patient does not have to wear the brace while lying in bed or bathing. Patient should avoid excessive bending, twisting, and lifting; no lifting greater than 10 pounds. MAPS was previously reviewed. An "Opiod Start Talking" Form has been signed and placed in the patient's chart. A prescription has been written for Bethany 5 mg/325 mg 1 tab every 6 hours as needed for pain, dispensed #28. Patient is also given a prescription for cyclobenzaprine 10 mg 1 tab 3 times a day as needed for muscle spasm, dispensed #90. Medications have been sent to her pharmacy. She may resume her other previous he prescribed home medications. Patient's other medical diagnoses include diabetes mellitus, hypertension, obesity, and fibromyalgia. Physical Exam on day of discharge: Patient is awake, alert, and oriented 3 Vital signs stable Adequate chest excursion with deep inspiration and expiration No signs or symptoms of DVT; no calf pain Examination of lumbar spine reveals skin is intact with no abrasions, lacerations, or bruises; no erythema, purulence or signs of infection Some pain with palpation along the midline at the thoracolumbar junction Dorsiflexion, plantarflexion, and extensor hallucis longus positive sustained bilaterally Patient is able to move her legs independently in bed without difficulty Lower extremity strength 5/5 bilaterally No signs or symptoms of DVT; no calf pain Neurovascularly intact Patient Condition at Discharge: Stable Plan - Discharge Summary Discharge Rx Participant: Yes New Discharge Prescriptions: New HYDROcodone/APAP 5-325MG [Bethany 5] 1 each PO Q6HR PRN #28 tab PRN Reason: Pain Cyclobenzaprine [Flexeril] 10 mg PO TID PRN #90 tab PRN Reason: Spasms No Action Acetaminophen Tab [Tylenol Tab] 500 mg PO QID PRN PRN Reason: Pain Hydroxychloroquine Sulfate [Plaquenil] 200 mg PO BID Cholecalciferol [Vitamin D3] 2,000 unit PO DAILY amLODIPine [Norvasc] 5 mg PO DAILY Losartan Potassium [Cozaar] 100 mg PO DAILY Timolol 0.5% Ophth Soln [Timoptic 0.5% Ophth Soln] 1 drop BOTH EYES BID Furosemide [Lasix] 40 mg PO DAILY Atorvastatin [Lipitor] 10 mg PO HS Doxycycline [Vibramycin] 100 mg PO DAILY ALPRAZolam [Xanax] 0.25 mg PO TID PRN PRN Reason: Anxiety Olopatadine HCl [Pataday] 1 drop BOTH EYES BID metFORMIN HCL ER [Glucophage XR] 1,000 mg PO DAILY Metoprolol Tartrate [Lopressor] 12.5 mg PO DAILY Cetirizine HCl [Zyrtec] 10 mg PO DAILY buPROPion HCL [Wellbutrin XL] 150 mg PO DAILY Famotidine [Pepcid] 20 mg PO BID Semaglutide [Ozempic] 0.5 mg SQ DYSON Discharge Medication List Acetaminophen Tab [Tylenol Tab] 500 mg PO QID PRN 11/11/15 [History] Cholecalciferol [Vitamin D3] 2,000 unit PO DAILY 11/11/15 [History] Hydroxychloroquine Sulfate [Plaquenil] 200 mg PO BID 11/11/15 [History] Losartan Potassium [Cozaar] 100 mg PO DAILY 11/11/15 [History] amLODIPine [Norvasc] 5 mg PO DAILY 11/11/15 [History] Furosemide [Lasix] 40 mg PO DAILY 08/22/17 [History] Timolol 0.5% Ophth Soln [Timoptic 0.5% Ophth Soln] 1 drop BOTH EYES BID 08/22/17 [History] Atorvastatin [Lipitor] 10 mg PO HS 02/02/19 [History] ALPRAZolam [Xanax] 0.25 mg PO TID PRN 07/28/19 [History] Doxycycline [Vibramycin] 100 mg PO DAILY 07/28/19 [History] Olopatadine HCl [Pataday] 1 drop BOTH EYES BID 07/28/19 [History] Metoprolol Tartrate [Lopressor] 12.5 mg PO DAILY 12/06/20 [History] Cetirizine HCl [Zyrtec] 10 mg PO DAILY 03/21/21 [History] Famotidine [Pepcid] 20 mg PO BID 03/21/21 [History] Semaglutide [Ozempic] 0.5 mg SQ DYSON 03/21/21 [History] buPROPion HCL [Wellbutrin XL] 150 mg PO DAILY 03/21/21 [History] metFORMIN HCL ER [Glucophage XR] 1,000 mg PO DAILY 03/21/21 [History] Cyclobenzaprine [Flexeril] 10 mg PO TID PRN #90 tab 03/22/21 [Rx] HYDROcodone/APAP 5-325MG [Bethany 5] 1 each PO Q6HR PRN #28 tab 03/22/21 [Rx] Follow up Appointment(s)/Referral(s): Martha Goff DO [Doctor of Osteopathic Medicine] - 04/06/21 1:45 pm Arianne Wang MD [Primary Care Provider] - 03/28/21 10:30 am Thomas Liriano [NON-STAFF] - (Please contact [facility] if you have questions regarding your TLSO back brace. ) Activity/Diet/Wound Care/Special Instructions: Utilize TLSO brace intact whenever out of bed and elevated more than 45. May remove brace while in bed or if in a recliner elevated less than 45. May remove brace for bathing and showering. May ambulate as tolerated with brace intact. Avoid heavy or rigorous activity. No repetitive bending twisting or lifting. No overhead work. Take medications as prescribed. Encouraged use a walker to aid in ambulation. May use bedside commode as needed. Discharge Disposition: HOME SELF-CARE
[2021-03-23 09:00] LABS: ALT 487 U/L (4-34); AST 224 U/L (14-36); African American GFR (CKD) >90 (>60 ml/min/1.73 sqM); Albumin 3.9 g/dL (3.5-5.0); Albumin/Globulin Ratio 1.6; Alkaline Phosphatase 162 U/L (38-126); Anion Gap 8 mmol/L; Blood Urea Nitrogen 11 mg/dL (7-17); Carbon Dioxide 29 mmol/L (22-30); Chloride 98 mmol/L (98-107); Globulin 2.5 g/dL; Glucose 116 mg/dL (74-99); Non-African American GFR(CKD) >90 (>60 ml/min/1.73 sqM); Sodium 135 mmol/L (137-145); Total Bilirubin 0.7 mg/dL (0.2-1.3); Total Protein 6.4 g/dL (6.3-8.2)
[2021-03-23] MEDS: HYDROcodone/APAP 5-325MG 1 EACH TAB PO PRN ×2 (10:13→16:16)
--- NOTE | 2021-03-23 11:00 | P.PN ---
Subjective Progress Note Date: 03/23/21 Principal diagnosis: back pain Patient is a 56 year-old female with a history of hypertension, dyslipidemia, diabetes mellitus type 2, and fibromyalgia who presented to the hospital after a fall resulting in back pain. She was found to have a T12 compression fracture. Patient seen and examined at bedside. She reports that her pain is much better today, she was able to go 8 hours without a pain pill. She does report O2 sats go to the bathroom her back pain increased. She denies any nausea or vomiting. She has not had a bowel movement in 3 days. General: non toxic, no distress, appears at stated age Derm: warm, dry Head: atraumatic, normocephalic, symmetric Eyes: EOMI, no lid lag, anicteric sclera Mouth: no lip lesion, mucus membranes moist Cardiovascular: S1S2 reg, no murmur, positive posterior tibial pulse bilateral, Lungs: Decreased bs bilatera basesl, no rhonchi, no rales , no accessory muscle use Abdominal: soft, nontender to palpation, no guarding, no appreciable organomegaly Neuro: CN II-XI grossly intact, no focal neuro deficits Psych: Alert, oriented, appropriate affect T 12 compression fracture secondary to fall - bracing - outpatient ortho follow-up - add bowel regiment DM 2 - resume home meds on discharge Transaminitis - undetermined etiology - will need outpatient follow-up with repeat testing in 1 week. Concerns with Plquanil - anticipate that it is due to the fall and possible hypoperfusion - improving HTN - conitnue with norvasc and metoprolol HLD - conitnue with statin Patient medically optimized for discharge. med rec addressed Thank you for allowing us to participate in the care of this pleasant patient. Do not hesitate to contact us with questions. Someone can be reached from the [facility] hospitalist group all hours of the day at [phone] or via perfect serve. Objective - Vital Signs Vital signs: Vital Signs Temp 99.2 F 03/23/21 07:41 Pulse 107 H 03/23/21 07:41 Resp 16 03/23/21 07:41 BP 121/65 03/23/21 07:41 Pulse Ox 91 L 03/23/21 07:41 Intake & Output 07/22/21 07/23/21 07/23/21 18:59 06:59 18:59 Intake Total 540 480 Balance 540 480 Intake: Oral 540 480 Other: # Voids 4 3 - Labs CBC & Chem 7: 03/23/21 07:55 03/23/21 07:55 Labs: Abnormal Lab Results - Last 24 Hours (Table) 03/22/21 03/22/21 03/23/21 Range/Units 16:25 19:59 06:51 Sodium (137-145) mmol/L Glucose (74-99) mg/dL POC Glucose (mg/dL) 105 H 116 H 115 H (75-99) mg/dL AST (14-36) U/L ALT (4-34) U/L Alkaline Phosphatase (38-126) U/L 03/23/21 Range/Units 07:55 Sodium 135 L (137-145) mmol/L Glucose 116 H (74-99) mg/dL POC Glucose (mg/dL) (75-99) mg/dL AST 224 H (14-36) U/L ALT 487 H (4-34) U/L Alkaline Phosphatase 162 H (38-126) U/L
[2021-03-23 11:43] LABS: Glucose,Whole Blood 115 mg/dL (75-99)
[2021-03-23] MEDS: INSULIN ASPART (NovoLOG) 100 UNIT/ML VIAL SQ SCH (12:49)
[2021-03-23] MEDS: SODIUM CHLORIDE 0.9% 1,000 ML IV SCH (14:05)
[2021-03-23 14:44] VITALS: BP 110/72; PULSE 111; TEMP 98.9
[2021-03-25] MEDS ORDERED: NON FORMULARY DRUG (Semaglutide [Ozempic] 0.25 MG/0.2 ML Pen.Injctr) SQ SCH (09:00)
== END 2021-03-23 17:58 | disposition home or self-care (01) | DRG 552 ==
LOC: EC 21:44 → 4SSUR 03-22 01:56
PROVIDERS: ADMIT Orthopaedic Surgery Orthopaedic Surgery of the Spine; ATTEND Orthopaedic Surgery Orthopaedic Surgery of the Spine
DX: S22.089A Unspecified fracture of T11-T12 vertebra, initial encounter for closed fracture (principal); Z68.41 Body mass index [BMI] 40.0-44.9, adult; W01.0XXA Fall on same level from slipping, tripping and stumbling without subsequent striking against object, initial encounter; Y93.E5 Activity, floor mopping and cleaning; E11.9 Type 2 diabetes mellitus without complications; M79.7 Fibromyalgia; M06.9 Rheumatoid arthritis, unspecified; J30.9 Allergic rhinitis, unspecified; H40.9 Unspecified glaucoma; K21.9 Gastro-esophageal reflux disease without esophagitis; I10 Essential (primary) hypertension; E66.9 Obesity, unspecified; E78.5 Hyperlipidemia, unspecified; F41.9 Anxiety disorder, unspecified; M47.896 Other spondylosis, lumbar region; M47.897 Other spondylosis, lumbosacral region; M43.16 Spondylolisthesis, lumbar region; Z96.653 Presence of artificial knee joint, bilateral; Z79.899 Other long term (current) drug therapy; Z79.84 Long term (current) use of oral hypoglycemic drugs; Z88.8 Allergy status to other drugs, medicaments and biological substances; Z88.5 Allergy status to narcotic agent; Z91.013 Allergy to seafood; Z86.14 Personal history of Methicillin resistant Staphylococcus aureus infection; Z90.710 Acquired absence of both cervix and uterus; Z90.721 Acquired absence of ovaries, unilateral; Z98.51 Tubal ligation status; Y92.009 Unspecified place in unspecified non-institutional (private) residence as the place of occurrence of the external cause; Z80.3 Family history of malignant neoplasm of breast; Z82.0 Family history of epilepsy and other diseases of the nervous system; Z82.5 Family history of asthma and other chronic lower respiratory diseases
CPT/HCPCS: 36415; 72072; 72100; 72131; 80053; 85025; 85027; 96374; 96375; 99285

== ENCOUNTER → 2021-04-23 | Outpatient (CLI) | payer BC ==
[2021-04-23 09:25] LABS: Basophils # (A) 0.1 k/uL (0-0.2); Basophils % (A) 1 %; Eosinophils # (A) 0.4 k/uL (0-0.7); Eosinophils % (A) 6 %; HCT 47.3 % (34.0-46.0); HGB 15.4 gm/dL (11.4-16.0); Lymphocytes # (A) 1.7 k/uL (1.0-4.8); Lymphocytes % (A) 27 %; MCHC 32.6 g/dL (31.0-37.0); MCV 91.9 fL (80.0-100.0); Mean Platelet Volume 7.4; Monocytes # (A) 0.4 k/uL (0-1.0); Monocytes % (A) 7 %; Neutrophils # (A) 3.4 k/uL (1.3-7.7); Neutrophils % (A) 56 %; Platelet Count 278 k/uL (150-450); RBC 5.14 m/uL (3.80-5.40); RDW 12.6 % (11.5-15.5)
[2021-04-23 09:33] LABS: African American GFR (CKD) >90 (>60 ml/min/1.73 sqM); Anion Gap 9 mmol/L; Blood Urea Nitrogen 16 mg/dL (7-17); Calcium 9.8 mg/dL (8.4-10.2); Carbon Dioxide 27 mmol/L (22-30); Chloride 101 mmol/L (98-107); Glucose 107 mg/dL (74-99); Non-African American GFR(CKD) 81 (>60 ml/min/1.73 sqM); Potassium 4.2 mmol/L (3.5-5.1); Sodium 137 mmol/L (137-145)
[2021-04-23 09:35] LABS: INR 0.9 (<1.2); Partial Thromboplastin Time 26.6 sec (22.0-30.0); Prothrombin Time 9.9 sec (9.0-12.0)
[2021-04-23 09:43] LABS: Appearance,Urine Cloudy (Clear); Bacteria,Urine Rare /hpf; Bilirubin,Urine Negative (Negative); Blood,Urine Negative (Negative); Color,Urine Yellow; Glucose,Urine (UA) Negative (Negative); Ketones,Urine Negative (Negative); Leukocyte Esterase,Urine Moderate (Negative); Mucus,Urine Many /hpf; Nitrite,Urine Negative (Negative); PH, Urine 5.5 (5.0-8.0); Protein,Urine 1+ (Negative); RBC,Urine 1 /hpf (0-5); Squamous Epithelial Cell,Urine 44 /hpf (0-4); Urobilinogen,Urine <2.0 mg/dL (<2.0); WBC,Urine 19 /hpf (0-5)
== END | disposition home or self-care (01) ==
LOC: LABPAT 08:29
PROVIDERS: ATTEND Orthopaedic Surgery Orthopaedic Surgery of the Spine
DX: Z01.818 Encounter for other preprocedural examination (principal); S22.080A Wedge compression fracture of T11-T12 vertebra, initial encounter for closed fracture; X58.XXXA Exposure to other specified factors, initial encounter
CPT/HCPCS: 36415; 80048; 81001; 85025; 85610; 85730

== ENCOUNTER 2021-05-02 10:52 | Day surgery (SDC) | payer BC ==
[2021-04-24 16:20] VITALS: BMI 38.6
[~2021-05-02 10:52] MED LIST changes: -LACTATED RINGERS 1,000 ML IV SCH; +LIDOCAINE 1% (10MG/ML) FOR IV START INTRADERMA PRN; -MIDAZOLAM 2 MG/2 ML VIAL ONE; +ONDANSETRON 4 MG/2 ML VIAL IVP ONE; -PROPOFOL 10 MG/ML 20 ML VIAL IV ONE; +ceFAZolin 1,000 MG in SODIUM CHLORIDE 0.9% IRRIGATIO 1,000 ML IRRIGATION PRN; -fentaNYL (PF) 50 MCG/ML 2 ML AMP ONE
[2021-05-02] MEDS: LACTATED RINGERS 1,000 ML IV SCH (12:00)
[2021-05-02 12:01] LABS: Glucose,Whole Blood 93 mg/dL (75-99)
[2021-05-02] MEDS ORDERED: PROPOFOL 10 MG/ML 20 ML VIAL IV ONE (13:14)
[2021-05-02] MEDS ORDERED: PHENYLEPHRINE-0.9% NACL SYG 1,000 MCG/10 ML SYRINGE ONE (13:14)
[2021-05-02] MEDS ORDERED: fentaNYL (PF) 50 MCG/ML 2 ML AMP ONE (13:14)
[2021-05-02] MEDS ORDERED: MIDAZOLAM 2 MG/2 ML VIAL ONE (13:14)
[2021-05-02] MEDS ORDERED: LIDOCAINE 1% INJ 10MG/ML (20 ML MDV) ONE (13:14)
[2021-05-02] MEDS ORDERED: WATER FOR INJECTION, STERILE 10 ML VIAL IV ONE (13:14)
[2021-05-02] MEDS ORDERED: ePHEDrine SULFATE/0.9% NACL/PF 50 MG/5 ML SYRINGE IV ONE (13:14)
[2021-05-02] MEDS ORDERED: SUCCINYLCHOLINE CHLORIDE 100 MG/5 ML SYR IV ONE (13:14)
[2021-05-02] MEDS ORDERED: LIDOCAINE 0.5%-EPI 1:200,000 50 ML VIAL SQ ONE (13:27)
[2021-05-02] MEDS ORDERED: LACTATED RINGERS 1,000 ML IV ONE ×3 (14:14→18:38)
[2021-05-02] MEDS ORDERED: HYDROcodone/APAP 5-325MG 1 EACH TAB PO PRN ×2 (14:28→14:32)
[2021-05-02] MEDS ORDERED: BENZOCAINE/MENTHOL LOZENG 1 EACH LOZENGE MUCOUS MEM PRN (14:28)
[2021-05-02] MEDS ORDERED: HYDROmorphone 0.5 MG/0.5 ML SYRINGE IVP PRN (14:28)
[2021-05-02] MEDS ORDERED: ONDANSETRON 4 MG/2 ML VIAL IVP PRN (14:29)
[2021-05-02] MEDS ORDERED: CYCLOBENZAPRINE 10 MG TAB PO PRN ×2 (14:29→14:32)
[2021-05-02] MEDS ORDERED: IBUPROFEN 600 MG TAB PO PRN (14:29)
[2021-05-02] MEDS ORDERED: ACETAMINOPHEN TAB 325 MG TAB PO PRN (14:29)
[2021-05-02] MEDS ORDERED: KETOTIFEN 0.025% OPHTH DROPS 5 ML BTL BOTH EYES PRN (14:32)
[2021-05-02] MEDS ORDERED: ALPRAZolam 0.25 MG TAB PO PRN (14:32)
--- NOTE | 2021-05-02 14:36 | P.OP ---
Date of Procedure: 05/02/21 Preoperative Diagnosis: T12 traumatic vertebral compression fracture, thoracic back pain, failed conservative treatment Postoperative Diagnosis: Same Anesthesia: GETA Pathology: other (T12 biopsy sent to pathology) Condition: stable Disposition: PACU Description of Procedure: BRIEF OPERATIVE NOTE Preoperative Diagnosis: T12 traumatic vertebral compression fracture, thoracic back pain, failed conservative treatment Postoperative Diagnosis: Same Procedure: Kyphoplasty of T12 Vertebral body biopsy of T12 Use of biplanar fluoroscopic guidance Surgeon: Dr. Goff Steel Inspector: Hossein Frederick is present throughout the entire the case persistence during positioning, dissection, exposure, visualization, and all crucial elements of the case as well as closure. Anesthesia: General anesthesia Estimated blood loss: Less than 10 mL Specimen: Vertebral body biopsy of T12 sent to pathology in formalin Complications: None apparent Components implanted: Bone cement approximately 4-1/2 mL Disposition: To recovery room in good stable condition. OPERATIVE INDICATIONS The patient has been having issues in their back ever since sustaining an injury. She was mopping the floor and slipped and fell and had subacute new back pain. She was found have a new vertebral compression fracture T12 with approximately 50% height loss. The patient has been through conservative treatment. They attempted conservative care with bracing however they're not having any benefit despite brace use. They continue to have significant pain and debility due to their fracture. She was having some further collapse of vertebral body as well. We discussed various treatment options including surgery, and the patient wishes to proceed with surgery We discussed the risk, patient's alternatives and benefits of surgery including but not limited to, risk of bleeding risk of infection, risk of need for further surgery, risk of d ecreased, loss of motion, loss of function, cement extravasation, nerve damage, paralysis, heart attack, blindness and . OPERATIVE SUMMARY After discussing all the risks, patient alternatives and benefits at length, the patient elected to proceed with surgical intervention, signed informed consent, and presented for their procedure. The patient was seen and examined in the preoperative holding area and the surgical site was marked. The patient was given antibiotics and brought to the operating room. The patient was sedated and intubated by anesthesia in standard fashion. The patient was positioned on to the operating room table in a prone position on the appropriate well-padded and well molded bilateral chest rolls. We were careful to pad any bony prominences and pressure points. We were careful to maintain the patient's cervical spine and good neutral alignment and position throughout. We used 2 C-arm machines to establish biplanar fluoroscopic guidance in AP and lateral positions. We were able to localize the fractures appropriately. The patient was prepped and draped in a normal standard fashion. An appropriate timeout and keystone protocol performed. We were able to proceed with the surgery. The local wound area was infiltrated with local anesthetic. An incision was made over the lateral aspect of the pedicle over the appropriate levels with a small 2 mm stab incision on the left at T12. Intraoperative fluoroscopy was taken which showed a marker at the appropriate level. With the appropriate level positively confirmed, I was able to position a sharp trocar over the lateral aspect of the pedicle. As able to advance the trocar into the pedicle and into the posterior aspect of vertebral body being careful to avoid penetration cephalad caudad or medially. The trocar was placed appropriately into the posterior aspect of vertebral body at the appropriate levels. This was confirmed with C-arm guidance. With the trocar intact I was then able to take a bone biopsy with a biopsy punch or a bony drill. The biopsy specimen was passed off to be sent to pathology in formalin. I was then able to place the kyphoplasty balloon within the vertebral body. The position was checked on C-arm. I was able to inflate the balloon under low pressure and visualization with C-arm. The balloon was well enclosed within the vertebral body. The cement was prepared. With the cement at appropriate working condition the balloons were deflated and removed. I was able to place bony cement with trocar with the cement delivery device under low pressure. It had good fill within the vertebral body of T12. There is no evidence of any extravasation of the cement posteriorly toward the canal. The cement was well contained at the appropriate levels, other than some cement into the disc space at T12-L1. The cement well contained.. The cement was allowed to cure appropriately. The trochars removed and final images were taken on C-arm. This showed the cement at the appropriate levels. We were able to proceed with closure. The wound was cleaned and dried and dressed with the appropriate dressing. The drapes were broken down. The patient was gently rolled back onto their hospital bed being careful to maintain their cervical spine and good neutral alignment and position. They were woken up by anesthesia, extubated, and brought to the recovery room in good stable condition. The patient will be admitted to the hospital for observation and for appropriate postoperative care, medical management and monitoring. We will continue to follow them closely about the postoperative course.
[2021-05-02 14:41] VITALS: RESP 16
[2021-05-02] MEDS: HYDROmorphone 0.5 MG/0.5 ML SYRINGE IVP PRN ×3 (15:45→16:08)
--- NOTE | 2021-05-02 16:06 | XR ---
Fluoroscopy HISTORY: Kyphoplasty fracture 30 seconds fluoroscopy time supplied to the referring clinician. 6 intraoperative C-arm images docum ent the procedure. See dictated report from orthopedic surgery.
[2021-05-02 17:58] LABS: Glucose,Whole Blood 109 mg/dL (75-99)
[2021-05-02] MEDS ORDERED: ATORVASTATIN 10 MG TAB PO SCH (21:00)
[2021-05-02] MEDS: metFORMIN 500 MG TAB PO SCH (21:03)
[2021-05-02] MEDS: FAMOTIDINE 20 MG TAB PO SCH (21:04)
[2021-05-02] MEDS: NITROFURANTOIN MONOHYD/M-CRYST 100 MG CAP PO SCH (21:04)
[2021-05-02] MEDS: TIMOLOL 0.5% OPHTH DROPS 5 ML BTL BOTH EYES SCH (21:05)
[2021-05-03] MEDS: metFORMIN 500 MG TAB PO SCH (08:03)
[2021-05-03] MEDS: FAMOTIDINE 20 MG TAB PO SCH (08:03)
[2021-05-03] MEDS: TIMOLOL 0.5% OPHTH DROPS 5 ML BTL BOTH EYES SCH (08:04)
[2021-05-03] MEDS: NITROFURANTOIN MONOHYD/M-CRYST 100 MG CAP PO SCH (08:04)
[2021-05-03 08:08] VITALS: BP 110/79; PULSE 108; TEMP 97.7
[2021-05-03] MEDS: LACTATED RINGERS 1,000 ML IV SCH (08:14)
[2021-05-03] MEDS ORDERED: FUROSEMIDE 40 MG TAB PO SCH (09:00)
[2021-05-03] MEDS ORDERED: METOPROLOL TARTRATE 12.5 MG TAB PO SCH (09:00)
[2021-05-03] MEDS ORDERED: buPROPion XL 150 MG TAB.ER.24H PO SCH (09:00)
[2021-05-03] MEDS ORDERED: HYDROXYCHLOROQUINE SULFATE 200 MG TAB PO SCH (09:00)
[2021-05-03] MEDS ORDERED: CHOLECALCIFEROL 25 MCG (1000 IU) TABLET PO SCH (09:00)
[2021-05-03] MEDS ORDERED: amLODIPine 5 MG TAB PO SCH (09:00)
[2021-05-03] MEDS ORDERED: LOSARTAN 50 MG TAB PO SCH (09:00)
--- NOTE | 2021-05-03 11:27 | P.DS ---
Providers Expected date of discharge: 05/03/21 Attending physician: Martha Goff Primary care physician: Arianne Wang MD - Discharge Diagnosis(es) (1) Status post kyphoplasty Current Visit: Yes Status: Acute (2) Intractable back pain Current Visit: No Status: Acute (3) Oxygen desaturation Current Visit: No Status: Acute (4) T12 compression fracture Current Visit: No Status: Acute Hospital Course: The patient has been having issues in their back ever since sustaining an injury. She was mopping the floor and slipped and fell and had subacute new back pain. She was found have a new vertebral compression fracture T12 with approximately 50% height loss. The patient has been through conservative treatment. They attempted conservative care with bracing however they're not having any benefit despite brace use. They continue to have significant pain and debility due to their fracture. She was having some further collapse of vertebral body as well. We discussed various treatment options including surgery, and the patient wishes to proceed with surgery We discussed the risk, patient's alternatives and benefits of surgery including but not limited to, risk of bleeding risk of infection, risk of need for further surgery, risk of decreased, loss of motion, loss of function, cement extravasation, nerve damage, paralysis, heart attack, blindness and . The patient is taken to surgery for kyphoplasty and biopsy of T12 on 05/02/2021. The patient is doing well postoperatively. She did have an episode of hypotension and hypoxia in the recovery room yesterday and it was felt that she should be admitted overnight. She is stable from a medical and orthopedic standpoint today. The patient is discharged to home today in good condition. Please see med rec for accurate list of home medications. Patient Condition at Discharge: Good Plan - Discharge Summary Discharge Rx Participant: Yes New Discharge Prescriptions: No Action Hydroxychloroquine Sulfate [Plaquenil] 400 mg PO DAILY Cholecalciferol [Vitamin D3 (25 Mcg = 1000 Iu)] 2,000 unit PO DAILY amLODIPine [Norvasc] 5 mg PO DAILY Losartan Potassium [Cozaar] 100 mg PO DAILY Timolol 0.5% Ophth Soln [Timoptic 0.5% Ophth Soln] 1 drop BOTH EYES BID Furosemide [Lasix] 40 mg PO DAILY Atorvastatin [Lipitor] 10 mg PO HS ALPRAZolam [Xanax] 0.25 mg PO TID PRN PRN Reason: Anxiety Olopatadine HCl [Pataday] 1 drop BOTH EYES BID PRN PRN Reason: allergies metFORMIN HCL ER [Glucophage XR] 500 mg PO BID HYDROcodone/APAP 5-325MG [[place] 5] 1 each PO Q6HR PRN #28 tab PRN Reason: Pain Cyclobenzaprine [Flexeril] 10 mg PO TID PRN #90 tab PRN Reason: Spasms Metoprolol Tartrate [Lopressor] 12.5 mg PO DAILY buPROPion HCL [Wellbutrin XL] 150 mg PO DAILY Famotidine [Pepcid] 20 mg PO BID Semaglutide [Ozempic] 0.5 mg SQ SA Nitrofurantoin Monohyd/M-Cryst [Macrobid] 100 mg PO Q12HR Discharge Medication List Cholecalciferol [Vitamin D3 (25 Mcg = 1000 Iu)] 2,000 unit PO DAILY 11/11/15 [History] Hydroxychloroquine Sulfate [Plaquenil] 400 mg PO DAILY 11/11/15 [History] Losartan Potassium [Cozaar] 100 mg PO DAILY 11/11/15 [History] amLODIPine [Norvasc] 5 mg PO DAILY 11/11/15 [History] Furosemide [Lasix] 40 mg PO DAILY 08/22/17 [History] Timolol 0.5% Ophth Soln [Timoptic 0.5% Ophth Soln] 1 drop BOTH EYES BID 08/22/17 [History] Atorvastatin [Lipitor] 10 mg PO HS 02/02/19 [History] ALPRAZolam [Xanax] 0.25 mg PO TID PRN 07/28/19 [History] Olopatadine HCl [Pataday] 1 drop BOTH EYES BID PRN 07/28/19 [History] Metoprolol Tartrate [Lopressor] 12.5 mg PO DAILY 12/06/20 [History] Famotidine [Pepcid] 20 mg PO BID 03/21/21 [History] Semaglutide [Ozempic] 0.5 mg SQ SA 03/21/21 [History] buPROPion HCL [Wellbutrin XL] 150 mg PO DAILY 03/21/21 [History] metFORMIN HCL ER [Glucophage XR] 500 mg PO BID 03/21/21 [History] Cyclobenzaprine [Flexeril] 10 mg PO TID PRN #90 tab 03/22/21 [Rx] HYDROcodone/APAP 5-325MG [[place] 5] 1 each PO Q6HR PRN #28 tab 03/22/21 [Rx] Nitrofurantoin Monohyd/M-Cryst [Macrobid] 100 mg PO Q12HR 04/24/21 [History] Follow up Appointment(s)/Referral(s): Martha Goff, [Doctor of Osteopathic Medicine] - 05/15/21 9:55 am (YOU WILL SEE KELI FOR THIS APPOINTMENT) Patient Instructions/Handouts: *Surgery [facility] - (Anesthesia) Discharge Instructions Outpatient Surgery, Kyphoplasty (DC) Activity/Diet/Wound Care/Special Instructions: Keep site clean. May shower with waterproof Tegaderm intact. Do not soak in a tub. After 72 hours postoperatively, patient May remove dressing and then may shower with area uncovered. Leave glue intact and allow it to fray off on its own. May ambulate as tolerated. Avoid heavy or rigorous activity. No repetitive bending twisting or lifting. No overhead work. Discharge Disposition: HOME SELF-CARE
[2021-05-05] MEDS ORDERED: Semaglutide [Ozempic] 0.25 MG/0.2 ML Pen SQ SCH (09:00)
== END 2021-05-03 12:11 | disposition home or self-care (01) ==
LOC: OR 10:52 → 5NMEDONC 14:34 → OR 05-03 12:11
PROVIDERS: ATTEND Orthopaedic Surgery Orthopaedic Surgery of the Spine
DX: M48.54XA Collapsed vertebra, not elsewhere classified, thoracic region, initial encounter for fracture (principal); R09.02 Hypoxemia; I95.9 Hypotension, unspecified; W01.0XXA Fall on same level from slipping, tripping and stumbling without subsequent striking against object, initial encounter; I10 Essential (primary) hypertension; M06.9 Rheumatoid arthritis, unspecified; H40.9 Unspecified glaucoma; R53.81 Other malaise; E78.5 Hyperlipidemia, unspecified; L71.9 Rosacea, unspecified; E11.9 Type 2 diabetes mellitus without complications; Z79.899 Other long term (current) drug therapy; Z79.84 Long term (current) use of oral hypoglycemic drugs; Z82.49 Family history of ischemic heart disease and other diseases of the circulatory system; Z87.442 Personal history of urinary calculi; Z96.652 Presence of left artificial knee joint; Z96.653 Presence of artificial knee joint, bilateral; Z90.710 Acquired absence of both cervix and uterus
CPT/HCPCS: 22513; 86900; 86901; 86850; 72070; J0690; J2405; J1170

== ENCOUNTER → 2021-08-28 | Outpatient (CLI) | payer BC ==
[2021-08-28 15:27] VITALS: BP 116/80; PULSE 94; RESP 18; TEMP 97.7
--- NOTE | 2021-08-28 16:05 | P.HPOB ---
History of Present Illness H&P Date: 08/28/21 Chief Complaint: The patient is here for her routine gynecologic exam and ma mmogram. This is a 56-year-old 014 with an LMP of 1998. She is status post MARY ANN and LSO for benign reasons. The patient is without gynecologic complaints. Review of Systems The patient has lost 6 pounds over the last year. She denies respiratory, cardiac, or G.I. problems. Past Medical History Past Medical History: Diabetes Mellitus, Eye Disorder, Fibromyalgia, GERD/Reflux, Hypertension, Rheumatoid Arthritis (RA) Additional Past Medical History / Comment(s): hyperparathyroidism improved after parathyroidectomy, seasonal ALLERGIES, glaucoma, fibromyalgia, and osteopenia, DIFFICULTY SWALLOWING PILLS. 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 Oophorectomy for benign teratoma. History of Any Multi-Drug Resistant Organisms: MRSA Date of last positivie culture/infection: 2016 MDRO Source:: nasal swab positive Past Surgical History: Appendectomy, Back Surgery, Cholecystectomy, Hysterectomy, Joint Replacement, Orthopedic Surgery, Tubal Ligation Additional Past Surgical History / Comment(s): tubal reversal & then another tubal, arthroscopy knee, carpal tunnel repair. MARY ANN with left oophorectomy in 1998, right salpingectomy, VTP. BILAT TKA, june 2019 parathyroid tumor removed benign. Back surgery 2020. Past Anesthesia/Blood Transfusion Reactions: Previous Problems w/ Anesthesia Additional Past Anesthesia/Blood Transfusion Reaction / Comment(s): slow to wake up, hx. of "fever" after 2 surgeries-once as kid, other w/6 hour tubal reversal- low grade temp., thought was from anesthesia, has never heard of malignant hyperthermia & no family hx. of, mom has low O2 sats after surg. Past Psychological History: Anxiety Smoking Status: Never smoker Past Alcohol Use History: Rare (2-3 per year) Past Drug Use History: None Reported Additional History: She has been since 1993 and this is her second marriage. She watches some of her grandchildren. Her undergoes dialysis 3 times per week. - Past Family History Mother Family Medical History: Cancer Additional Family Medical History / Comment(s): Breast cancer. Father Family Medical History: COPD, Dementia Additional Family Medical History / Comment(s): Parkinson's disease. Daughter(s) Family Medical History: Pulmonary Embolus Medications and Allergies Home Medications Medication Instructions Recorded Confirmed Type Cholecalciferol [Vitamin D3 (25 2,000 unit PO DAILY 11/11/15 08/28/21 History Mcg = 1000 Iu)] Hydroxychloroquine Sulfate 400 mg PO DAILY 11/11/15 08/28/21 History [Plaquenil] Losartan Potassium [Cozaar] 100 mg PO DAILY 11/11/15 08/28/21 History amLODIPine [Norvasc] 5 mg PO DAILY 11/11/15 08/28/21 History Furosemide [Lasix] 40 mg PO DAILY 08/22/17 08/28/21 History Timolol 0.5% Ophth Soln [Timoptic 1 drop BOTH EYES BID 08/22/17 08/28/21 History 0.5% Ophth Soln] Atorvastatin [Lipitor] 10 mg PO HS 02/02/19 08/28/21 History ALPRAZolam [Xanax] 0.25 mg PO TID PRN 07/28/19 08/28/21 History Olopatadine HCl [Pataday] 1 drop BOTH EYES BID PRN 07/28/19 08/28/21 History Metoprolol Tartrate [Lopressor] 12.5 mg PO DAILY 12/06/20 08/28/21 History Famotidine [Pepcid] 20 mg PO BID 03/21/21 08/28/21 History Semaglutide [Ozempic] 0.5 mg SQ SA 03/21/21 08/28/21 History buPROPion HCL [Wellbutrin XL] 150 mg PO DAILY 03/21/21 08/28/21 History metFORMIN HCL ER [Glucophage XR] 500 mg PO BID 03/21/21 08/28/21 History Allergies Allergy/AdvReac Type Severity Reaction Status Date / Time latanoprost Allergy Itching Verified 08/28/21 15:18 shellfish derived [Shellfish] Allergy Anaphylaxis Verified 08/28/21 15:18 venom-honey bee Allergy Anaphylaxis Verified 08/28/21 15:18 [bee venom (honey bee)] codeine AdvReac Nausea & Verified 08/28/21 15:18 Vomiting Iodinated Contrast Media AdvReac Unknown Verified 08/28/21 15:18 [Iodinated Contrast- Oral and IV Dye] labetalol AdvReac "pinging Verified 08/28/21 15:18 in head" metal brittany AdvReac fever Uncoded 08/28/21 15:18 Exam Vital Signs Temp Pulse Resp BP Pulse Ox 08/28/21 15:21 97.7 F 94 18 116/80 96 Intake and Output 08/28/21 08/28/21 08/28/21 06:59 14:59 22:59 Other: Weight 107.048 kg Height 5 feet 4 inches, weight 236 pounds, BMI 40.5. This is a well-developed well-nourished white female who is alert and oriented times 3 in no acute distress. She is ambulating with the assistance of a walker. HEENT: Within normal limits. NECK: Supple without mass or thyromegaly. CHEST AND LUNGS: Clear to auscultation. HEART: Regular rate and rhythm. BREASTS: Are without mass or discharge. AXILLARY EXAM: Negative for adenopathy. BACK: Negative for CVA tenderness. ABDOMEN: Soft, nontender, without palpable masses. PELVIC EXAM: External genitalia appears normal with mild atrophy. Vagina appears normal with mild atrophy. There is no evidence of prolapse. Bimanual examination is negative for mass or tenderness. RECTAL EXAM: Rectovaginal exam is negative for mass or tenderness and is negative for occult blood. EXTREMITIES: Nontender. IMPRESSION: 1. 56-year-old menopausal female status post MARY ANN with LSO for benign reasons, with normal gynecologic exam. 2. History of osteopenia. PLAN: 1. Pap smears have been discontinued. 2. Self breast awareness was discussed with the patient. We have also discussed symptoms associated with inflammatory breast cancer. 3. Screening mammogram will be done today. 4. Osteoporosis prevention was discussed. I have stressed the importance of adequate calcium, vitamin D and regular exercise. Recommended amounts of calcium and vitamin D were also discussed. I recommended repeating bone density testing since her last one was about 2-1/2 years ago. The order slip was given to the patient for this. We have discussed the possibility of medications even if she still has osteopenia because of her back fracture with a fall. 5. Colorectal cancer screening was discussed. She states she is planning to do Cologuard testing through her primary care physician in the very near future. 6. She has completed her Covid vaccination series and booster. 7. She was advised to return in one year for her annual well woman exam.
--- NOTE | 2021-08-29 11:06 | MM ---
Reason for exam: screening (asymptomatic). Last mammogram was performed 1 year and 4 months ago. History: Patient is postmenopausal. Family history of breast cancer in mother at age 79. Physical Findings: A clinical breast exam by your physician is recommended on an annual basis and results should be correlated with mammographic findings. MG 3D Screening Mammo W/Cad Bilateral CC, MLO, and XCCL view(s) were taken. Prior study comparison: May 10, 2020, bilateral MG 3d screening mammo w/cad. February 02, 2019, bilateral MG 3d screening mammo w/cad. There are scattered fibroglandular densities. There is chronic nodularity bilaterally. No significant changes when compared with prior studies. ASSESSMENT: Benign, BI-RAD 2 RECOMMENDATION: Routine screening mammogram of both breasts in 1 year.
== END ==
LOC: WWCWWP 15:12
PROVIDERS: ATTEND Obstetrics & Gynecology
DX: Z12.31 Encounter for screening mammogram for malignant neoplasm of breast (principal); E11.9 Type 2 diabetes mellitus without complications; K21.9 Gastro-esophageal reflux disease without esophagitis; I10 Essential (primary) hypertension; M06.9 Rheumatoid arthritis, unspecified; F41.9 Anxiety disorder, unspecified; Z79.84 Long term (current) use of oral hypoglycemic drugs; Z87.39 Personal history of other diseases of the musculoskeletal system and connective tissue; Z90.710 Acquired absence of both cervix and uterus; Z79.899 Other long term (current) drug therapy; Z88.8 Allergy status to other drugs, medicaments and biological substances; Z91.013 Allergy to seafood; Z91.030 Bee allergy status; Z88.5 Allergy status to narcotic agent; Z91.041 Radiographic dye allergy status; Z91.048 Other nonmedicinal substance allergy status
CPT/HCPCS: 77063; 77067

== ENCOUNTER 2021-10-03 13:49 | Emergency (ER) | payer BC ==
[2021-10-03 13:58] VITALS: BP 143/86; PULSE 98; RESP 20; TEMP 98.3
--- NOTE | 2021-10-03 14:49 | CT ---
EXAMINATION TYPE: CT brain wo con, CT facial bones wo con DATE OF EXAM: 10/03/2021 COMPARISON: CT brain 11/13/2015 HISTORY: FALL, HIT LT FOREHEAD/CHEEK ON DOOR, trauma and pain CT DLP: 1131.4 mGycm Automated exposure control for dose reduction was used. Helical imaging through the brain and facial bones. Coronal and sagittal reconstructions. FINDINGS: Brain shows no interval change. There is no hemorrhage or hydrocephalus. Calvarium is intact. Some mi ld inflammatory change present within the ethmoid air cells. Facial bones are intact. There is no air-fluid level in the paranasal sinuses to suggest acute hemorr payal. Ostiomeatal units are patent. Orbits are intact. No evident fracture or dislocation. Ecchymosis or soft tissue swelling present in the supraorbital region on the left, mild increased attenuation w ithin the subcutaneous fat. IMPRESSION: NO ACUTE BRAIN ABNORMALITY. NO EVIDENT FRACTURE OF THE FACIAL BONES.
--- NOTE | 2021-10-03 15:06 | ED ---
Fall HPI - General Chief Complaint: Fall Stated Complaint: Fall/Hit Head Time Seen by Provider: 10/03/21 14:01 Source: patient, RN notes reviewed Mode of arrival: ambulatory Limitations: no limitations - History of Present Illness Initial Comments: 56-year-old female presents emergency Department with chief complaint of head injury. Patient states that she caught her foot on some tarpaper on the ground causing her lunged forward striking her head on the door frame. Patient denies any loss conscious. Patient does have some bruising, swelling reported. Patient states pain. No neck pain. Patient does have some left maxillary pain. No blurred vision patient states she just feels tired slight nausea no other complaints. No blood thinners. - Related Data Home Medications Medication Instructions Recorded Confirmed Cholecalciferol [Vitamin D3 (25 2,000 unit PO DAILY 11/11/15 08/28/21 Mcg = 1000 Iu)] Hydroxychloroquine Sulfate 400 mg PO DAILY 11/11/15 08/28/21 [Plaquenil] Losartan Potassium [Cozaar] 100 mg PO DAILY 11/11/15 08/28/21 amLODIPine [Norvasc] 5 mg PO DAILY 11/11/15 08/28/21 Furosemide [Lasix] 40 mg PO DAILY 08/22/17 08/28/21 Timolol 0.5% Ophth Soln [Timoptic 1 drop BOTH EYES BID 08/22/17 08/28/21 0.5% Ophth Soln] Atorvastatin [Lipitor] 10 mg PO HS 02/02/19 08/28/21 ALPRAZolam [Xanax] 0.25 mg PO TID PRN 07/28/19 08/28/21 Olopatadine HCl [Pataday] 1 drop BOTH EYES BID PRN 07/28/19 08/28/21 Metoprolol Tartrate [Lopressor] 12.5 mg PO DAILY 12/06/20 08/28/21 Famotidine [Pepcid] 20 mg PO BID 03/21/21 08/28/21 Semaglutide [Ozempic] 0.5 mg SQ SA 03/21/21 08/28/21 buPROPion HCL [Wellbutrin XL] 150 mg PO DAILY 03/21/21 08/28/21 metFORMIN HCL ER [Glucophage XR] 500 mg PO BID 03/21/21 08/28/21 Allergies Allergy/AdvReac Type Severity Reaction Status Date / Time latanoprost Allergy Itching Verified 10/03/21 13:58 shellfish derived [Shellfish] Allergy Anaphylaxis Verified 10/03/21 13:58 venom-honey bee Allergy Anaphylaxis Verified 10/03/21 13:58 [bee venom (honey bee)] codeine AdvReac Nausea & Verified 10/03/21 13:58 Vomiting Iodinated Contrast Media AdvReac Unknown Verified 10/03/21 13:58 [Iodinated Contrast- Oral and IV Dye] labetalol AdvReac "pinging Verified 10/03/21 13:58 in head" metal brittany AdvReac fever Uncoded 10/03/21 13:58 Review of Systems ROS Statement: Those systems with pertinent positive or pertinent negative responses have been documented in the HPI. ROS Other: All systems not noted in ROS Statement are negative. Past Medical History Past Medical History: Diabetes Mellitus, Eye Disorder, Fibromyalgia, GERD/Reflux, Hypertension, Rheumatoid Arthritis (RA) Additional Past Medical History / Comment(s): hyperparathyroidism improved after parathyroidectomy, seasonal ALLERGIES, glaucoma, fibromyalgia, and osteopenia, DIFFICULTY SWALLOWING PILLS. 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 Oophorectomy for benign teratoma. History of Any Multi-Drug Resistant Organisms: MRSA Date of last positivie culture/infection: 2016 MDRO Source:: nasal swab positive Past Surgical History: Appendectomy, Back Surgery, Cholecystectomy, Hysterectomy, Joint Replacement, Orthopedic Surgery, Tubal Ligation Additional Past Surgical History / Comment(s): tubal reversal & then another tubal, arthroscopy knee, carpal tunnel repair. MARY ANN with left oophorectomy in 1998, right salpingectomy, VTP. BILAT TKA, june 2019 parathyroid tumor removed benign. Back surgery 2020. Past Anesthesia/Blood Transfusion Reactions: Previous Problems w/ Anesthesia Additional Past Anesthesia/Blood Transfusion Reaction / Comment(s): slow to wake up, hx. of "fever" after 2 surgeries-once as kid, other w/6 hour tubal reversal- low grade temp., thought was from anesthesia, has never heard of malignant hyperthermia & no family hx. of, mom has low O2 sats after surg. Past Psychological History: Anxiety Smoking Status: Never smoker Past Alcohol Use History: Rare Past Drug Use History: None Reported - Past Family History Mother Family Medical History: Cancer Additional Family Medical History / Comment(s): Breast cancer. Father Family Medical History: COPD, Dementia Additional Family Medical History / Comment(s): Parkinson's disease. Daughter(s) Family Medical History: Pulmonary Embolus General Exam Limitations: no limitations General appearance: alert, in no apparent distress Head exam: Present: atraumatic, normocephalic. Absent: normal inspection (Ecchymosis left forehead) Eye exam: Present: normal appearance, PERRL, EOMI. Absent: scleral icterus, conjunctival injection, periorbital swelling ENT exam: Present: normal exam, normal oropharynx, mucous membranes moist Neck exam: Present: normal inspection, full ROM. Absent: tenderness, meningismus, lymphadenopathy Respiratory exam: Present: normal lung sounds bilaterally. Absent: respiratory distress, wheezes, rales, rhonchi, stridor Cardiovascular Exam: Present: regular rate, normal rhythm, normal heart sounds. Absent: systolic murmur, diastolic murmur, rubs, gallop, clicks GI/Abdominal exam: Present: soft, normal bowel sounds. Absent: distended, tenderness, guarding, rebound, rigid Neurological exam: Present: alert, oriented X3, CN II-XII intact, reflexes normal. Absent: motor sensory deficit Course Vital Signs 10/03/21 13:55 Temperature 98.3 F Pulse Rate 98 Respiratory 20 Rate Blood Pressure 143/86 O2 Sat by Pulse 98 Oximetry Medical Decision Making - Medical Decision Making Patient CT is unremarkable. Patient discharged in stable condition return parameters discussed. Disposition Clinical Impression: Head contusion Disposition: HOME SELF-CARE Condition: Stable Instructions (If sedation given, give patient instructions): Head Injury (ED) Additional Instructions: Please return to the Emergency Department if symptoms worsen or any other concerns. Is patient prescribed a controlled substance at d/c from ED?: No Referrals: Arianne Wang MD [Primary Care Provider] - 1-2 days Time of Disposition: 15:06
== END 2021-10-03 15:15 | disposition home or self-care (01) ==
LOC: EC 13:49
DX: S00.83XA Contusion of other part of head, initial encounter (principal); E11.9 Type 2 diabetes mellitus without complications; M79.7 Fibromyalgia; K21.9 Gastro-esophageal reflux disease without esophagitis; I10 Essential (primary) hypertension; F41.9 Anxiety disorder, unspecified; Z79.84 Long term (current) use of oral hypoglycemic drugs; Z88.5 Allergy status to narcotic agent; Z90.49 Acquired absence of other specified parts of digestive tract; Z90.710 Acquired absence of both cervix and uterus; Z98.51 Tubal ligation status; W01.10XA Fall on same level from slipping, tripping and stumbling with subsequent striking against unspecified object, initial encounter
CPT/HCPCS: 70450; 70486; 99284

== ENCOUNTER 2021-10-05 07:13 | Emergency (ER) | payer BC ==
[2021-10-05 07:19] VITALS: BP 151/80; PULSE 104; RESP 18; TEMP 97.8
--- NOTE | 2021-10-05 07:47 | ED ---
General Adult HPI - General Chief complaint: Head Injury Stated complaint: Headache, nausea Time Seen by Provider: 10/05/21 07:20 Source: patient Mode of arrival: ambulatory Limitations: no limitations - History of Present Illness Initial comments: 56-year-old female with a past medical history of diabetes mellitus, hypertension, fibromyalgia, RA presents to the emergency room for a chief complaint of head injury. Patient states that 2 days ago she was walking in her basement when she tripped over some paper that they have tape to the floor. Patient hit her head. Patient states that she was seen at that time and had a CAT scan done however over the past couple days she has felt more fatigued and had light sensitivity and a headache. She has also had some nausea. No vomiting. Patient states she wanted to be checked out again because of this. States she just feels like sleeping. She does not take blood thinners. She did not have a loss of consciousness.Patient has no other complaints at this time including shortness of breath, chest pain, abdominal pain, vomiting, or visual changes. - Related Data Home Medications Medication Instructions Recorded Confirmed Cholecalciferol [Vitamin D3 (25 2,000 unit PO DAILY 11/11/15 08/28/21 Mcg = 1000 Iu)] Hydroxychloroquine Sulfate 400 mg PO DAILY 11/11/15 08/28/21 [Plaquenil] Losartan Potassium [Cozaar] 100 mg PO DAILY 11/11/15 08/28/21 amLODIPine [Norvasc] 5 mg PO DAILY 11/11/15 08/28/21 Furosemide [Lasix] 40 mg PO DAILY 08/22/17 08/28/21 Timolol 0.5% Ophth Soln [Timoptic 1 drop BOTH EYES BID 08/22/17 08/28/21 0.5% Ophth Soln] Atorvastatin [Lipitor] 10 mg PO HS 02/02/19 08/28/21 ALPRAZolam [Xanax] 0.25 mg PO TID PRN 07/28/19 08/28/21 Olopatadine HCl [Pataday] 1 drop BOTH EYES BID PRN 07/28/19 08/28/21 Metoprolol Tartrate [Lopressor] 12.5 mg PO DAILY 12/06/20 08/28/21 Famotidine [Pepcid] 20 mg PO BID 03/21/21 08/28/21 Semaglutide [Ozempic] 0.5 mg SQ SA 03/21/21 08/28/21 buPROPion HCL [Wellbutrin XL] 150 mg PO DAILY 03/21/21 08/28/21 metFORMIN HCL ER [Glucophage XR] 500 mg PO BID 03/21/21 08/28/21 Allergies Allergy/AdvReac Type Severity Reaction Status Date / Time latanoprost Allergy Itching Verified 10/03/21 13:58 shellfish derived [Shellfish] Allergy Anaphylaxis Verified 10/03/21 13:58 venom-honey bee Allergy Anaphylaxis Verified 10/03/21 13:58 [bee venom (honey bee)] codeine AdvReac Nausea & Verified 10/03/21 13:58 Vomiting Iodinated Contrast Media AdvReac Unknown Verified 10/03/21 13:58 [Iodinated Contrast- Oral and IV Dye] labetalol AdvReac "pinging Verified 10/03/21 13:58 in head" metal brittany AdvReac fever Uncoded 10/03/21 13:58 Review of Systems ROS Statement: Those systems with pertinent positive or pertinent negative responses have been documented in the HPI. ROS Other: All systems not noted in ROS Statement are negative. Past Medical History Past Medical History: Diabetes Mellitus, Eye Disorder, Fibromyalgia, GERD/Reflux, Hypertension, Rheumatoid Arthritis (RA) Additional Past Medical History / Comment(s): hyperparathyroidism improved after parathyroidectomy, seasonal ALLERGIES, glaucoma, fibromyalgia, and osteopenia, DIFFICULTY SWALLOWING PILLS. 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 Oophorectomy for benign teratoma. History of Any Multi-Drug Resistant Organisms: MRSA Date of last positivie culture/infection: 2016 MDRO Source:: nasal swab positive Past Surgical History: Appendectomy, Back Surgery, Cholecystectomy, Hysterectomy, Joint Replacement, Orthopedic Surgery, Tubal Ligation Additional Past Surgical History / Comment(s): tubal reversal & then another tubal, arthroscopy knee, carpal tunnel repair. MARY ANN with left oophorectomy in 1998, right salpingectomy, VTP. BILAT TKA, june 2019 parathyroid tumor removed benign. Back surgery 2020. Past Anesthesia/Blood Transfusion Reactions: Previous Problems w/ Anesthesia Additional Past Anesthesia/Blood Transfusion Reaction / Comment(s): slow to wake up, hx. of "fever" after 2 surgeries-once as kid, other w/6 hour tubal reversal- low grade temp., thought was from anesthesia, has never heard of malignant h yperthermia & no family hx. of, mom has low O2 sats after surg. Past Psychological History: Anxiety Smoking Status: Never smoker Past Alcohol Use History: Rare Past Drug Use History: None Reported - Past Family History Mother Family Medical History: Cancer Additional Family Medical History / Comment(s): Breast cancer. Father Family Medical History: COPD, Dementia Additional Family Medical History / Comment(s): Parkinson's disease. Daughter(s) Family Medical History: Pulmonary Embolus General Exam Limitations: no limitations General appearance: alert, in no apparent distress Head exam: Absent: atraumatic (Patient has some minimal ecchymosis above the left eyebrow on the frontal scalp) Eye exam: Present: normal appearance, PERRL, EOMI. Absent: scleral icterus, conjunctival injection ENT exam: Present: normal exam, mucous membranes moist Neck exam: Present: normal inspection, full ROM. Absent: tenderness Respiratory exam: Present: normal lung sounds bilaterally. Absent: respiratory distress, wheezes Cardiovascular Exam: Present: regular rate, normal rhythm, normal heart sounds GI/Abdominal exam: Present: soft, normal bowel sounds. Absent: distended, tenderness Neurological exam: Present: alert Course Vital Signs 10/05/21 07:16 Temperature 97.8 F Pulse Rate 104 H Respiratory 18 Rate Blood Pressure 151/80 O2 Sat by Pulse 98 Oximetry Medical Decision Making - Medical Decision Making Vitals are stable. Patient is well-appearing. No loss of consciousness. No blood thinners. Report from previous ER visit 2 days ago was reviewed. CT brain was reviewed as well showing no acute brain abnormality. There were no evident fractures in the facial bones either. At this time patient symptoms are consistent with concussion. She can be discharged home with concussion precautions and advised to participate and brain rest. She will follow-up with her doctor early next week as it is Friday today. She will return here for any worsening symptoms. Disposition Clinical Impression: Concussion Disposition: HOME SELF-CARE Condition: Good Instructions (If sedation given, give patient instructions): Concussion (ED) Additional Instructions: Please follow-up with your doctor in one to 2 days. Return to the emergency room for any worsening symptoms. Is patient prescribed a controlled substance at d/c from ED?: No Referrals: Arianne Wang MD [Primary Care Provider] - 1-2 days Time of Disposition: 07:49
== END 2021-10-05 07:58 | disposition home or self-care (01) ==
LOC: EC 07:13
DX: S06.0X0A Concussion without loss of consciousness, initial encounter (principal); E11.9 Type 2 diabetes mellitus without complications; I10 Essential (primary) hypertension; M79.7 Fibromyalgia; K21.9 Gastro-esophageal reflux disease without esophagitis; F41.9 Anxiety disorder, unspecified; Z79.84 Long term (current) use of oral hypoglycemic drugs; Z88.1 Allergy status to other antibiotic agents; Z88.5 Allergy status to narcotic agent; Z90.49 Acquired absence of other specified parts of digestive tract; Z90.710 Acquired absence of both cervix and uterus; Z98.51 Tubal ligation status; Z96.653 Presence of artificial knee joint, bilateral; W01.0XXA Fall on same level from slipping, tripping and stumbling without subsequent striking against object, initial encounter
CPT/HCPCS: 99283

== ENCOUNTER → 2021-10-25 | Outpatient (CLI) | payer BC ==
--- NOTE | 2021-10-25 18:05 | BD ---
EXAMINATION TYPE: Axial Bone Density DATE OF EXAM: 10/25/2021 COMPARISON: 02/02/2019 CLINICAL HISTORY: Postmenopausal screening Height: 63.7 IN Weight: 235 LBS FRAX RISK QUESTIONS: History of Fracture in Adulthood: T-SPINE AGE 56 Secondary Osteoporosis: 3. Menopause before 45: ARTIAL HYST AGE 34 Rheumatoid Arthritis: YES RISK FACTORS HISTORY OF: Spine Fracture: T SPINE When: AGE 56 Family History of Osteoporosis: YES MOTHER Active: YES Postmenopausal woman: PARTIAL HYST AGE 34 Hyperparathyroidism: YES MEDICATIONS: Additional Medications: VIT D, XANAX, PLAQUENIL, DOXYCYCLINE, LOSARTAN, LASIX, METOPROLOL, NORVASC, T YLENOL, PRILOSEC, METFORMIN, LIPITOR, ZYRTEC, EYE DROPS EXAM MEASUREMENTS: Bone mineral densitometry was performed using the [employer] System. Bone mineral density as measured about the Lumbar spine is: ----- L1-L4(G/cm2): 1.099 T Score Values are as follows: ----- L2: -1.9 ----- L3: -1.6 ----- L4: -2.4 ----- L1-L4: -0.7 Bone mineral density has: Decreased -7.0% since study of: 02/02/2019 Bone mineral density about the R hip (g/cm2): 0.802 Bone mineral density about the L hip (g/cm2): 0.708 T Score values are as follows: -----R Neck: -1.7 -----L Neck: -2.4 -----R Total: -1.9 -----L Total: -1.5 Bone mineral density has: Increased 2.6% since study of: 02/02/2019 IMPRESSION: Osteopenia (T Score between -2.5 and -1). Note that measurements are bordering on osteoporosis at the left hip. There is slightly increased risk of fracture and the patient may be considered for treatment. Re-Screen 2-5 years. NOTE: T-SCORE=SD OF THE YOUNG ADULT MEAN.
== END | disposition home or self-care (01) ==
LOC: RADBDWWP 15:41
PROVIDERS: ATTEND Obstetrics & Gynecology
DX: M85.89 Other specified disorders of bone density and structure, multiple sites (principal); M81.0 Age-related osteoporosis without current pathological fracture; Z78.0 Asymptomatic menopausal state
CPT/HCPCS: 77080

== ENCOUNTER 2022-09-16 16:41 | Emergency (ER) | payer BC ==
[2022-09-16 17:24] VITALS: TEMP 98.1
--- NOTE | 2022-09-16 17:47 | XR ---
EXAMINATION TYPE: XR lumbar spine 2 or 3V DATE OF EXAM: 09/16/2022 COMPARISON: 03/21/2021 HISTORY: Fall. Pain TECHNIQUE: 3 views FINDINGS: There is 50% anterior wedging of L1 vertebra with vertebroplasty. There is a minimal retrol isthesis at L1-2. There is transitional S1 vertebra. There is L5-S1 degenerative mild spondylolisthes is without change. Sacroiliac joints are intact. IMPRESSION: L1 compression fracture without change. No acute fractures seen. No significant change co mpared to old exam.
[2022-09-16] MEDS ORDERED: ORPHENADRINE 30 MG/ML 2 ML VIAL IM STA (19:50)
[2022-09-16] MEDS ORDERED: MORPHINE SULFATE 2 MG/ML SYRINGE IM STA (19:50)
--- NOTE | 2022-09-16 19:53 | ED ---
Fall HPI - General Chief Complaint: Back Pain/Injury Stated Complaint: fall - back pain Time Seen by Provider: 09/16/22 19:39 Source: patient, RN notes reviewed Mode of arrival: ambulatory - History of Present Illness Initial Comments: Patient is a 57-year-old male presenting to the emergency room via EMS with complaints of pain in her right upper buttocks region/lower lumbar region with radiation of her lumbar spine. She reports that she was leaning forward to pick something up off the ground and leaned forward to far causing her to lose her balance and fell backwards onto her buttocks. She has a history of previous falls and a previous lumbar fracture in which she is established with Dr. Goff for and had to undergo physical therapy and utilize a back brace. She reports that the pain she is experiencing now is not as severe as this pain. She denies any lower extremity weakness, saddle Gumzán seizure, bowel or bladder incontinence or other red flag symptoms for cauda equina. She has a past medical history significant for diabetes, hypertension, GERD, fibromyalgia, hyperparathyroidism status post parathyroidectomy, and arthritis. - Related Data Home Medications Medication Instructions Recorded Confirmed Cholecalciferol [Vitamin D3 (25 2,000 unit PO DAILY 11/11/15 08/28/21 Mcg = 1000 Iu)] Hydroxychloroquine Sulfate 400 mg PO DAILY 11/11/15 08/28/21 [Plaquenil] Losartan Potassium [Cozaar] 100 mg PO DAILY 11/11/15 08/28/21 amLODIPine [Norvasc] 5 mg PO DAILY 11/11/15 08/28/21 Furosemide [Lasix] 40 mg PO DAILY 08/22/17 08/28/21 Timolol 0.5% Ophth Soln [Timoptic 1 drop BOTH EYES BID 08/22/17 08/28/21 0.5% Ophth Soln] Atorvastatin [Lipitor] 10 mg PO HS 02/02/19 08/28/21 ALPRAZolam [Xanax] 0.25 mg PO TID PRN 07/28/19 08/28/21 Olopatadine HCl [Pataday] 1 drop BOTH EYES BID PRN 07/28/19 08/28/21 Metoprolol Tartrate [Lopressor] 12.5 mg PO DAILY 12/06/20 08/28/21 Famotidine [Pepcid] 20 mg PO BID 03/21/21 08/28/21 Semaglutide [Ozempic] 0.5 mg SQ SA 03/21/21 08/28/21 buPROPion HCL [Wellbutrin XL] 150 mg PO DAILY 03/21/21 08/28/21 metFORMIN HCL ER [Glucophage XR] 500 mg PO BID 03/21/21 08/28/21 Previous Rx's Medication Instructions Recorded Cyclobenzaprine HCl 10 mg PO TID PRN 7 Days #21 tab 09/16/22 Allergies Allergy/AdvReac Type Severity Reaction Status Date / Time latanoprost Allergy Itching Verified 09/16/22 17:23 shellfish derived [Shellfish] Allergy Anaphylaxis Verified 09/16/22 17:23 venom-honey bee Allergy Anaphylaxis Verified 09/16/22 17:23 [bee venom (honey bee)] codeine AdvReac Nausea & Verified 09/16/22 17:23 Vomiting Iodinated Contrast Media AdvReac Unknown Verified 09/16/22 17:23 [Iodinated Contrast- Oral and IV Dye] labetalol AdvReac "pinging Verified 09/16/22 17:23 in head" metal brittany AdvReac fever Uncoded 09/16/22 17:23 Review of Systems ROS Statement: Those systems with pertinent positive or pertinent negative responses have been documented in the HPI. ROS Other: All systems not noted in ROS Statement are negative. Past Medical History Past Medical History: Diabetes Mellitus, Eye Disorder, Fibromyalgia, GERD/Reflux, Hypertension, Rheumatoid Arthritis (RA) Additional Past Medical History / Comment(s): hyperparathyroidism improved after parathyroidectomy, seasonal ALLERGIES, glaucoma, fibromyalgia, and osteopenia, DIFFICULTY SWALLOWING PILLS. 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 Oophorectomy for benign teratoma. History of Any Multi-Drug Resistant Organisms: MRSA Date of last positivie culture/infection: 2016 MDRO Source:: nasal swab positive Past Surgical History: Appendectomy, Back Surgery, Cholecystectomy, Hysterectomy, Joint Replacement, Orthopedic Surgery, Tubal Ligation Additional Past Surgical History / Comment(s): tubal reversal & then another tubal, arthroscopy knee, carpal tunnel repair. MARY ANN with left oophorectomy in 1998, right salpingectomy, VTP. BILAT TKA, june 2019 parathyroid tumor removed benign. Back surgery 2020. Past Anesthesia/Blood Transfusion Reactions: Previous Problems w/ Anesthesia Additional Past Anesthesia/Blood Transfusion Reaction / Comment(s): slow to wake up, hx. of "fever" after 2 surgeries-once as kid, other w/6 hour tubal reversal- low grade temp., thought was from anesthesia, has never heard of malignant hyperthermia & no family hx. of, mom has low O2 sats after surg. Past Psychological History: Anxiety Smoking Status: Never smoker Past Alcohol Use History: Rare Past Drug Use History: None Reported - Past Family History Mother Family Medical History: Cancer Additional Family Medical History / Comment(s): Breast cancer. Father Family Medical History: COPD, Dementia Additional Family Medical History / Comment(s): Parkinson's disease. Daughter(s) Family Medical History: Pulmonary Embolus General Exam - General Exam Comments Initial Comments: GENERAL: No acute distress, well developed, well nourished. Obese. HEENT: Normocephalic, atraumatic. Pupils equal, round, reactive to light. Moist mucous membranes. LUNGS: No respiratory distress or use of accessory muscles. HEART: Regular rate.. ABDOMEN: Non-distended. BACK: Normal inspection. Lower lumbar region and right upper buttocks. No vertebral tenderness. No muscle spasms noted. EXTREMITIES: No edema. No tenderness. Moves all extremities. NEUROLOGIC: Alert & oriented x 3. CN II-XII grossly intact. PSYCHIATRIC: Normal affect and behavior. DERMATOLOGIC: Skin intact, without rashes or lesions noted. Limitations: no limitations Course Vital Signs 09/16/22 09/16/22 17:20 20:32 Temperature 98.1 F Pulse Rate 90 84 Respiratory 18 14 Rate Blood Pressure 123/84 118/67 O2 Sat by Pulse 99 96 Oximetry Medical Decision Making - Medical Decision Making Was pt. sent in by a medical professional or institution (, PA, CRIMINAL COURT JUDGE, urgent care, hospital, or detention...) When possible be specific @ -No Did you speak to anyone other than the patient for history (EMS, parent, family, police, friend...)? What history was obtained from this source @ -No Did you review nursing and triage notes (agree or disagree)? Why? @ -I reviewed and agree with nursing and triage notes except pain in the buttocks region and pelvic crest region more than lumbar spine. Were old charts reviewed (outside hosp., previous admission, EMS record, old EKG, old radiological studies, urgent care reports/EKG's, detention records)? Report findings @ -No old charts were reviewed Differential Diagnosis (chest pain, altered mental status, abdominal pain women, abdominal pain men, vaginal bleeding, weakness, fever, dyspnea, syncope, headache, dizziness, GI bleed, back pain, seizure, CVA, palpatations, mental health)? @ -Differential Back Pain: Strain, zoster, cauda equina syndrome, epidural abscess, vertebral osteomyelitis, discitis, fracture, subluxation, disc herniation, DJD, spinal stenosis, dissection, AAA, pancreatitis, peptic ulcer disease, pyelonephritis, kidney stone, this is not meant to be an all-inclusive list. EKG interpreted by me (3pts min.). @ -None done X-rays interpreted by me (1pt min.). @ -X-ray lumbar spine without acute fracture. X-ray hips bilateral and AP pelvis demonstrates normal sacroiliac joints, no pelvic fracture or hip fracture. Hip joint space normal. CT interpreted by me (1pt min.). @ -None done U/S interpreted by me (1pt. min.). @ -None done What testing was considered but not performed or refused? (CT, X-rays, U/S, labs)? Why? @ -None What meds were considered but not given or refused? Why? @ -None Did you discuss the management of the patient with other professionals (professionals i.e. , PA, CRIMINAL COURT JUDGE, lab, RT, psych nurse, social service liaison, family service assistant, teacher, customer service security officer, caseworker)? Give summary @ -No Was smoking cessation discussed for >3mins.? @ -No Was critical care preformed (if so, how long)? @ -No Were there social determinants of health that impacted care today? How? (Homelessness, low income, unemployed, alcoholism, drug addiction, transportation, low edu. Level, literacy, decrease access to med. care, intermediate, rehab)? @ -No Was there de-escalation of care discussed even if they declined (Discuss DNR or withdrawal of care, Hospice)? DNR status @ -No What co-morbidities impacted this encounter? (DM, HTN, Smoking, COPD, CAD, Cancer, CVA, ARF, Chemo, Hep., AIDS, mental health diagnosis, sleep apnea, morbid obesity)? @ -Previous lumbar fracture Was patient admitted / discharged? Hospital course, mention meds given and route, prescriptions, significant lab abnormalities, going to OR and other pertinent info. @ -57-year-old female presenting to the emergency room after losing her balance and falling backwards onto her buttocks region feeling a jarring feeling worse into her spine with persistent pain in the upper buttocks region and lower lumbar region. Toradol given by EMS with minimal relief in symptoms. Will give additional pain medication of Norflex and morphine and monitor response. Lumbar x-ray ordered by triaging nurse and reviewed. No acute abnormalities noted. Will order additional imaging of x-ray of bilateral hips and pelvis given upper buttocks region pain as well and landing on buttocks. X-ray of bilateral hips and AP pelvis without acute abnormalities. Pain improved with muscle relaxer and morphine. Results and recommended treatment reviewed with patient and family at bedside at length. Patient previously following with Dr. Goff and states that if needed she will follow-up with him again. Encouraged follow-up with her primary care provider. No indication for further diagnostic imaging or laboratory studies. Will discharge home in stable condition with prescription of muscle relaxer to utilize as needed along with anti-inflammatories [id number]. Undiagnosed new problem with uncertain prognosis? @ -No Drug Therapy requiring intensive monitoring for toxicity (Heparin, Nitro, Insulin, Cardizem)? @ -No Were any procedures done? @ -No Diagnosis/symptom? @ -Low back pain Acute, or Chronic, or Acute on Chronic? @ -Acute on chronic Uncomplicated (without systemic symptoms) or Complicated (systemic symptoms)? @ -Uncomplicated Side effects of treatment? @ -No Exacerbation, Progression, or Severe Exacerbation? @ -No Poses a threat to life or bodily function? How? (Chest pain, [place], ND, pneumonia, PE, COPD, DKA, ARF, appy, cholecystitis, CVA, Diverticulitis, Homicidal, Suicidal, threat to staff... and all critical care pts) @ -No Case discussed with Dr. Merino - Radiology Data Radiology results: report reviewed, image reviewed Disposition Clinical Impression: Fall, Low back pain Disposition: HOME SELF-CARE Condition: Stable Instructions (If sedation given, give patient instructions): Acute Low Back Pain (ED), Lower Back Exercises (ED) Additional Instructions: Please utilize muscle relaxer as prescribed for pain along with anti-inflammat ories [id number] as needed for pain. Gentle range of motion along with ice application encouraged. Please follow-up with your primary care provider and already established orthospine specialist. Please return to the Emergency Department if symptoms worsen or any other concerns. Prescriptions: Cyclobenzaprine HCl 10 mg PO TID PRN 7 Days #21 tab PRN Reason: Spasms Is patient prescribed a controlled substance at d/c from ED?: No Referrals: Brock Serna MD [Primary Care Provider] - 1-2 days
[2022-09-16 20:33] VITALS: BP 118/67; PULSE 84; RESP 14
--- NOTE | 2022-09-16 20:42 | XR ---
EXAMINATION TYPE: XR Hip Bilateral and AP pelvis DATE OF EXAM: 09/16/2022 COMPARISON: NONE HISTORY: Hip pain TECHNIQUE: 5 views FINDINGS: The pelvic ring is intact. The proximal right femur and left femur appear intact. Hip joint spaces are fairly normal. Sacroiliac joints are intact. IMPRESSION: Negative pelvis and bilateral hip exam. No fracture.
== END 2022-09-16 20:44 | disposition home or self-care (01) ==
LOC: EC 16:41
DX: M54.50 Low back pain, unspecified (principal); I10 Essential (primary) hypertension; E11.9 Type 2 diabetes mellitus without complications; F41.9 Anxiety disorder, unspecified; K21.9 Gastro-esophageal reflux disease without esophagitis; Z79.899 Other long term (current) drug therapy; Z88.5 Allergy status to narcotic agent; Z88.8 Allergy status to other drugs, medicaments and biological substances; Z91.030 Bee allergy status; W01.0XXA Fall on same level from slipping, tripping and stumbling without subsequent striking against object, initial encounter
CPT/HCPCS: 72100; 73521; 99283; 96372 ×2; J2360; J2270

== ENCOUNTER → 2022-11-13 | Outpatient (CLI) | payer BC ==
[2022-11-13 11:40] VITALS: BP 125/84; PULSE 92; RESP 17; TEMP 98.1
--- NOTE | 2022-11-13 12:30 | P.HPOB ---
History of Present Illness H&P Date: 11/13/22 Chief Complaint: The patient is here for her routine gynecologic exam and ma mmogram. This is a 57-year-old 014 with an LMP of 1998. The patient is status post MARY ANN and LSO for benign reasons. She is without gynecologic complaints. Review of Systems The patient has lost 11 pounds over the last year. She denies respiratory, cardiac, or G.I. problems. Past Medical History Past Medical History: Diabetes Mellitus, Eye Disorder, Fibromyalgia, GERD/Reflux, Hyperlipidemia, Hypertension, Musculoskeletal Disorder, Rheumatoid Arthritis (RA), Skin Disorder Additional Past Medical History / Comment(s): Hyperparathyroidism improved after parathyroidectomy, seasonal allergies, glaucoma, difficulty swallowing pills, osteoporosis, rosacea. 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 L Oophorectomy for benign teratoma. History of Any Multi-Drug Resistant Organisms: None Reported Date of last positivie culture/infection: 2016 MDRO Source:: nasal swab positive Past Surgical History: Appendectomy, Back Surgery, Cholecystectomy, Hysterectomy, Joint Replacement, Orthopedic Surgery, Tubal Ligation Additional Past Surgical History / Comment(s): Tubal reversal & then another tubal, right knee arthroscopy, bilateral carpal tunnel repair, total adominal hysterectomy with left oophorectomy, right salpingectomy, VTP, bilateral total knee replacements, parathyroid tumor removed - benign, laser eye surgery. Vertebral KYPHOPLASTY 10/23/22. Past Anesthesia/Blood Transfusion Reactions: Previous Problems w/ Anesthesia Additional Past Anesthesia/Blood Transfusion Reaction / Comment(s): Slow to wake up, hx. of "fever" after 2 surgeries-once as a kid, other with 6 hour tubal reversal-low grade temp, thought was from anesthesia, has never heard of malignant hyperthermia & no family hx of, BP dropped after last kyphoplasty. Mom has low O2 sats after surgery.. Past Psychological History: Anxiety Smoking Status: Never smoker Past Alcohol Use History: Rare (One per year) Past Drug Use History: None Reported Additional History: She has been since 1993 and this is her second marriage. - Past Family History Mother Family Medical History: Cancer Additional Family Medical History / Comment(s): Breast cancer. Father Family Medical History: COPD, Dementia, Neurologic Disorder Additional Family Medical History / Comment(s): Parkinson's disease. Daughter(s) Family Medical History: Pulmonary Embolus Medications and Allergies Home Medications Medication Instructions Recorded Confirmed Type Hydroxychloroquine Sulfate 400 mg PO DAILY 11/11/15 11/13/22 History [Plaquenil] Losartan Potassium [Cozaar] 100 mg PO QAM 11/11/15 11/13/22 History amLODIPine [Norvasc] 5 mg PO QAM 11/11/15 11/13/22 History Furosemide [Lasix] 40 mg PO DAILY 08/22/17 11/13/22 History Timolol 0.5% Ophth Soln [Timoptic 1 drop BOTH EYES BID 08/22/17 11/13/22 History 0.5% Ophth Soln] Atorvastatin [Lipitor] 10 mg PO HS 02/02/19 11/13/22 History ALPRAZolam [Xanax] 0.25 mg PO TID PRN 07/28/19 11/13/22 History Olopatadine HCl [Pataday] 1 drop BOTH EYES BID PRN 07/28/19 11/13/22 History Metoprolol Tartrate [Lopressor] 12.5 mg PO QAM 12/06/20 11/13/22 History Semaglutide [Ozempic] 0.5 mg SQ SA 03/21/21 11/13/22 History buPROPion HCL [Wellbutrin XL] 150 mg PO QAM 03/21/21 11/13/22 History metFORMIN HCL ER [Glucophage XR] 500 mg PO BID 03/21/21 11/13/22 History Cyclobenzaprine HCl 10 mg PO TID PRN 7 Days #21 tab 09/16/22 11/13/22 Rx HYDROcodone/APAP 5-325MG [Corral 1 tab PO Q8HR PRN 10/17/22 11/13/22 History 5-325] Acetaminophen [Tylenol Extra 500 mg PO DIRECTED 11/13/22 11/13/22 History Strength] Doxycycline [Vibramycin] 50 mg PO DAILY 11/13/22 11/13/22 History Omeprazole [PriLOSEC] 20 mg PO DAILY 11/13/22 11/13/22 History Allergies Allergy/AdvReac Type Severity Reaction Status Date / Time iodine Allergy Swelling Verified 10/23/22 06:53 latanoprost Allergy Itching Verified 10/23/22 06:52 morphine Allergy Rash/Hives Verified 10/23/22 06:52 shellfish derived [Shellfish] Allergy Anaphylaxis Verified 10/23/22 06:52 venom-honey bee Allergy Anaphylaxis Verified 10/23/22 06:52 [bee venom (honey bee)] codeine AdvReac Nausea & Verified 10/23/22 06:52 Vomiting Iodinated Contrast Media AdvReac Unknown Verified 10/23/22 06:52 [Iodinated Contrast- Oral and IV Dye] labetalol AdvReac "pinging Verified 10/23/22 06:52 in head" metal brittany AdvReac fever Uncoded 10/23/22 06:52 Exam Vital Signs Temp Pulse Resp BP Pulse Ox 11/13/22 11:37 98.1 F 92 17 125/84 97 Intake and Output 11/12/22 11/13/22 11/13/22 22:59 06:59 14:59 Other: Weight 102.058 kg Height 5 feet 5 inches, weight 225 pounds, BMI 37.4. This is a well-developed well-nourished white female who is alert and oriented times 3 in no acute distress. She is using a walker for ambulation. HEENT: Within normal limits. NECK: Supple without mass or thyromegaly. CHEST AND LUNGS: Clear to auscultation. HEART: Regular rate and rhythm. BREASTS: Are without mass or discharge. AXILLARY EXAM: Negative for adenopathy. BACK: Negative for CVA tenderness. ABDOMEN: Soft, nontender, without palpable masses. PELVIC EXAM: External genitalia appears normal with mild atrophy. Vagina appears normal with mild atrophy. There is no evidence of prolapse. Bimanual examination is negative for mass or tenderness. RECTAL EXAM: Rectovaginal exam is negative for mass or tenderness and is negative for occult blood. EXTREMITIES: Nontender. IMPRESSION: 1. 57-year-old menopausal female status post MARY ANN and left oophorectomy for benign reasons, with normal gynecologic exam. 2. History of osteopenia with recent bone fracture from a simple fall. PLAN: 1. Pap smears have been discontinued. 2. Self breast awareness was discussed with the patient. We have also discussed symptoms associated with inflammatory breast cancer. 3. Screening mammogram will be done today. 4. Osteoporosis prevention was discussed. I have stressed the importance of adequate calcium, vitamin D and regular exercise. Recommended amounts of calcium and vitamin D were also discussed. The patient states that because of her vertebral bone fracture she has been discussing treatment with her PCP and they are planning to do some type of regular infusion to help to decrease the risk for bone fractures. I recommended to repeat the bone density test in 1 year. 5. She has been doing colorectal cancer screening with Cologuard which was recently done according to the patient. 6. She was advised to return in one year for her annual well woman exam.
--- NOTE | 2022-11-13 13:05 | US ---
EXAMINATION TYPE: US thyroid st tissue head/neck DATE OF EXAM: 11/13/2022 COMPARISON: NONE CLINICAL HISTORY: 57-year-old female R22.1 Localized swelling, mass and lump, neck. Neck swelling TECHNIQUE: Multiple sonographic images of the thyroid gland were obtained. FINDINGS: GLAND SIZE: Right Lobe: 5.2 x 1.4 x 1.8 cm Overall Parenchyma: homogenous Left Lobe: 5.1 x 1.4 x 1.6 cm Overall Parenchyma: homogeneous Isthmus Thickness: 0.3 cm NODULES RIGHT: # of nodules measured on right: 0 LEFT: # of nodules measured on left: 0 ISTHMUS: # of nodules measured in the isthmus: 0 Bilateral neck scanned, no evidence of lymphadenopathy. IMPRESSION: Mild thyromegaly with measurements as above. No discrete nodules.
--- NOTE | 2022-11-13 13:20 | MM ---
Reason for Exam: Screening (asymptomatic). Last mammogram was performed 1 year(s) and 3 month(s) ago. Patient History: Menarche at age 10. First Full-Term at age 21. Left ovary removed at age 34. Hysterectomy at age 34. Postmenopausal. Mother had breast cancer, age 79. Risk Values: Yoli 5 year model risk: 2.7%. NCI Lifetime model risk: 13.9%. Prior Study Comparison: 02/02/2019 Bilateral Screening Mammogram, [facility]. 05/10/2020 Bilateral Screening Mammogram, [facility]. 08/28/2021 Bilateral Screening Mammogram, [facility]. Tissue Density: There are scattered fibroglandular densities. Analyzed By CAD. Overall Assessment: Benign, BI-RAD 2 Management: Screening Mammogram of both breasts in 1 year. Electronically signed and approved by: Abdirizak Banegas M.D.
== END ==
LOC: WWCWWP 11:00
PROVIDERS: ATTEND Obstetrics & Gynecology
DX: Z12.31 Encounter for screening mammogram for malignant neoplasm of breast (principal); M81.0 Age-related osteoporosis without current pathological fracture; Z78.0 Asymptomatic menopausal state; Z91.041 Radiographic dye allergy status; Z88.5 Allergy status to narcotic agent; Z91.013 Allergy to seafood; Z91.02 Food additives allergy status; Z88.8 Allergy status to other drugs, medicaments and biological substances; Z79.899 Other long term (current) drug therapy; Z79.84 Long term (current) use of oral hypoglycemic drugs; E11.9 Type 2 diabetes mellitus without complications; M79.7 Fibromyalgia; K21.9 Gastro-esophageal reflux disease without esophagitis; E78.5 Hyperlipidemia, unspecified; I10 Essential (primary) hypertension; M06.9 Rheumatoid arthritis, unspecified; Z01.419 Encounter for gynecological examination (general) (routine) without abnormal findings; Z80.3 Family history of malignant neoplasm of breast; Z90.721 Acquired absence of ovaries, unilateral; Z90.710 Acquired absence of both cervix and uterus
CPT/HCPCS: 76536; 77063; 77067

== ENCOUNTER → 2022-11-13 | Outpatient (CLI) | payer BC | END | disposition home or self-care (01) | LOC: RADUSWWP 11:03 | PROVIDERS: ATTEND Family Medicine | DX: Z53.9 Procedure and treatment not carried out, unspecified reason (principal); R22.1 Localized swelling, mass and lump, neck ==

== ENCOUNTER → 2023-04-29 | Outpatient (CLI) | payer BC ==
--- NOTE | 2023-04-29 09:08 | CT ---
EXAMINATION TYPE: CT sinus wo con CT DLP: 591 mGycm, Automated exposure control for dose reduction was used. DATE OF EXAM: 04/29/2023 8:24 AM COMPARISON: 10/03/2021. CLINICAL INDICATION:Female, 58 years old with history of H04.412; , lacrimal cyst TECHNIQUE: Multiple thin axial images were obtained through the paranasal sinuses without the use of IV contrast. Additional coronal and sagittal reformatted images were submitted for evaluation. Contrast used: none Oral contrast used: none FINDINGS: Frontal sinuses: Hypoplastic and aerated. Frontal Recess: Clear Maxillary Sinuses: Normally developed and aerated. Maxillary Infundibula(OMC): Clear, No Leydi cells identified. Ethmoid sinuses: Normally developed and aerated. Ethmoidal notch: Protected and abutting the lateral lamina. Sphenoid sinuses: Normally developed with mucosal thickening/secretions noted bilaterally.. There is sellar sphenoid sinus pneumatization without evidence of dehiscence. No dehiscence of carotid canal. No evidence of optic nerve dehiscence within the sphenoid sinus. No evidence of Onodi cells. Spheno ethmoidal recesses: Clear. Nasal septum: Within normal limits.. Nasal Turbinates: Within normal limits. Mastoid air cells & middle ears: The air cells are clear. The middle ears are grossly unremarkable. Modified Soft tissues & Brain: Partially seen without gross abnormality. Globes are intact. Other: Cribriform plate demonstrates symmetric Keros classification type 2 cribriform plate. No evidence of bony dehiscence of skull base. Lamina papyracea is intact without evidence of remote orbital fracture or orbital prolapse into the e thmoid sinus. No evidence for lacrimal cyst. IMPRESSION: 1. No significant mucosal sinus disease. 2. The ostiomeatal units, frontonasal and sphenoethmoidal recesses are clear. 3. No evidence for lacrimal cyst.
== END | disposition home or self-care (01) ==
LOC: RADCTMAIN 07:54
PROVIDERS: ATTEND Otolaryngology
DX: H04.412 Chronic dacryocystitis of left lacrimal passage (principal)
CPT/HCPCS: 70486

== ENCOUNTER → 2023-07-08 | Outpatient (CLI) | payer BC ==
[2023-07-08 09:02] VITALS: BP 115/80; PULSE 97; RESP 18; TEMP 98.3
--- NOTE | 2023-07-08 09:45 | P.PN ---
Progress Note - Text Progress Note Date: 07/08/23 Chief Complaint: Yeast infection symptoms which started 1-2 weeks ago. HPI: This is a 58-year-old 014 with an LMP of 1998. She is status post MARY ANN and LSO for benign reasons. The patient developed UTI symptoms including urinary frequency and urgency on 06/14/2023. She was started on nitrofurantoin for a suspected UTI by her PCP. A few days later her PCP called with urine culture results showing that the UTI was resistant to nitrofurantoin and she was started on a 10 day course of amoxicillin. Soon after completing the amoxicillin, she developed vulvar itching and irritation. She had some old Monistat which she used for 2 days and she got the symptoms got worse so she discontinued it. She has noticed a slight pinkish white discharge without odor. She continues to have vulvar itching and irritation. She has had only 1 other yeast infection in her lifetime and that was many years ago. She has not been sexually active for 18 years. ROS: She denies fever. She denies respiratory, cardiac, or GI problems. PE: Blood pressure: 115/80, Height: 5 feet 5 inches, Weight: 136 pounds, Temperature: 98.3, Pulse: 97. Pulse oximeter 98%. This is a well developed, well nourished, white female who is alert and orientedx3, in no acute distress. External genitalia reveals mild generalized erythema without focal lesions or ulcerations. There is no excoriation. Vagina reveals small amount of thin clear discharge without odor. Impression: 1. 58-year-old menopausal female status post MARY ANN and left oophorectomy for benign reasons, with acute vulvitis and vaginitis symptoms. Differential diagnosis will include bacterial vaginosis, Roxanne vaginitis, and nonspecific vulvar dermatitis. It is also possible that she had a yeast infection which was self treated with the [id number] Monistat. Plan: 1. Affirm vaginitis panel was obtained from the vagina. 2. I have stressed the importance of avoiding over wash with soap and importance of avoiding scratching or rubbing the area. 3. We have had a long discussion regarding the nature of certain types of vaginal infections as well as how sometimes taking antibiotics may disrupt the normal vaginal candida was had a types of infections. 4. Kenalog 0.1% cream twice a day as needed for vulvar itching. I think this will help her to avoid rubbing and scratching the area. We will also await the affirm vaginitis panel results to see if other treatments for vaginitis and vulvitis are needed. Time spent with the patient: 20 minutes
--- NOTE | 2023-07-10 15:30 | P.PN ---
Progress Note - Text Progress Note Date: 07/10/23 Affirm vaginitis panel done on 07/08/23 was negative for Roxanne, Gardnerella, and Trichomonas. Because this could be a partially treated Yeast infection since she used Monistat x2 before being seen here, I will treat her with Diflucan 150 PO x 1 now that she has just completed her Amoxicillin prescription. The electronic prescription was sent to [facility] in [place]. She will also use the Kenalog cream as needed. Call if problems.
== END ==
LOC: WWCWWP 08:36
PROVIDERS: ATTEND Obstetrics & Gynecology
DX: L29.2 Pruritus vulvae (principal); Z78.0 Asymptomatic menopausal state; Z90.710 Acquired absence of both cervix and uterus; Z90.721 Acquired absence of ovaries, unilateral; Z88.8 Allergy status to other drugs, medicaments and biological substances; Z88.5 Allergy status to narcotic agent; Z91.013 Allergy to seafood; Z91.030 Bee allergy status; Z91.041 Radiographic dye allergy status; Z91.048 Other nonmedicinal substance allergy status

== ENCOUNTER 2023-08-08 18:17 | Emergency (ER) | payer BC ==
[2023-08-08 18:31] VITALS: TEMP 98
[2023-08-08] MEDS ORDERED: KETOROLAC 15 MG/ML 1 ML VIAL IM STA (19:21)
--- NOTE | 2023-08-08 19:30 | ED ---
General Adult HPI - General Chief complaint: Extremity Problem,Nontraumatic Stated complaint: r leg pain Time Seen by Provider: 08/08/23 19:07 Source: patient, RN notes reviewed Mode of arrival: ambulatory Limitations: no limitations - History of Present Illness Initial comments: Patient is a pleasant 58-year-old female presenting to the emergency Department with right leg pain. Onset of symptoms was around 10 days ago. Symptoms seemed to resolve and then return again. Patient has been doing a lot of walking. Discomfort is right lower medial thigh. No knee pain. No C. diff and swelling. No redness. No fever. No Pain. No history of similar symptoms previously. No trauma to this area. - Related Data Home Medications Medication Instructions Recorded Confirmed Hydroxychloroquine Sulfate 400 mg PO DAILY 11/11/15 07/08/23 [Plaquenil] Losartan Potassium [Cozaar] 100 mg PO QAM 11/11/15 07/08/23 amLODIPine [Norvasc] 5 mg PO QAM 11/11/15 07/08/23 Timolol 0.5% Ophth Soln [Timoptic 1 drop BOTH EYES BID 08/22/17 07/08/23 0.5% Ophth Soln] Atorvastatin [Lipitor] 10 mg PO HS 02/02/19 07/08/23 ALPRAZolam [Xanax] 0.25 mg PO TID PRN 07/28/19 07/08/23 Olopatadine HCl [Pataday] 1 drop BOTH EYES BID PRN 07/28/19 07/08/23 Metoprolol Tartrate [Lopressor] 12.5 mg PO QAM 12/06/20 07/08/23 Semaglutide [Ozempic] 1 mg SQ SA 03/21/21 07/08/23 buPROPion HCL [Wellbutrin XL] 150 mg PO QAM 03/21/21 07/08/23 metFORMIN HCL ER [Glucophage XR] 500 mg PO BID 03/21/21 07/08/23 HYDROcodone/APAP 5-325MG [[place] 1 tab PO Q8HR PRN 10/17/22 07/08/23 5-325] Acetaminophen [Tylenol Extra 500 mg PO DIRECTED 11/13/22 07/08/23 Strength] Doxycycline [Vibramycin] 50 mg PO DAILY 11/13/22 07/08/23 Omeprazole [PriLOSEC] 20 mg PO DAILY 11/13/22 07/08/23 hydroCHLOROthiazide [Hydrodiuril] 50 mg PO DAILY 07/08/23 07/08/23 Previous Rx's Medication Instructions Recorded Cyclobenzaprine HCl 10 mg PO TID PRN 7 Days #21 tab 09/16/22 Triamcinolone 0.1% Cream [Kenalog 1 applicatio TOPICAL BID PRN #30 gm 07/08/23 0.1% Cream] Fluconazole [Diflucan] 150 mg PO ONCE #1 tab 07/10/23 Allergies Allergy/AdvReac Type Severity Reaction Status Date / Time iodine Allergy Swelling Verified 07/08/23 08:44 latanoprost Allergy Itching Verified 07/08/23 08:44 morphine Allergy Rash/Hives Verified 07/08/23 08:44 shellfish derived [Shellfish] Allergy Anaphylaxis Verified 07/08/23 08:44 venom-honey bee Allergy Anaphylaxis Verified 07/08/23 08:44 [bee venom (honey bee)] codeine AdvReac Nausea & Verified 07/08/23 08:44 Vomiting Iodinated Contrast Media AdvReac Unknown Verified 07/08/23 08:44 [Iodinated Contrast- Oral and IV Dye] labetalol AdvReac "pinging Verified 07/08/23 08:44 in head" metal brittany AdvReac fever Uncoded 07/08/23 08:44 Review of Systems ROS Statement: Those systems with pertinent positive or pertinent negative responses have been documented in the HPI. ROS Other: All systems not noted in ROS Statement are negative. Constitutional: Denies: fever Eyes: Denies: eye pain ENT: Denies: ear pain Respiratory: Denies: cough, dyspnea Cardiovascular: Denies: chest pain Endocrine: Denies: fatigue Gastrointestinal: Denies: abdominal pain Genitourinary: Denies: dysuria Musculoskeletal: Reports: as per HPI. Denies: back pain Skin: Denies: rash Past Medical History Past Medical History: Diabetes Mellitus, Eye Disorder, Fibromyalgia, GERD/Reflux, Hyperlipidemia, Hypertension, Musculoskeletal Disorder, Rheumatoid Arthritis (RA), Skin Disorder Additional Past Medical History / Comment(s): Hyperparathyroidism improved after parathyroidectomy, seasonal allergies, glaucoma, osteopenia, difficulty swallowing pills, osteoporosis, rosacea. History of Any Multi-Drug Resistant Organisms: None Reported Date of last positivie culture/infection: 2016 MDRO Source:: nasal swab positive Past Surgical History: Appendectomy, Back Surgery, Cholecystectomy, Hysterectomy, Joint Replacement, Orthopedic Surgery, Tubal Ligation Additional Past Surgical History / Comment(s): Tubal reversal & then another tubal, right knee arthroscopy, bilateral carpal tunnel repair, total adominal hysterectomy with left oophorectomy, right salpingectomy, VTP, bilateral total knee replacements, parathyroid tumor removed - benign, laser eye surgery. Past Anesthesia/Blood Transfusion Reactions: Previous Problems w/ Anesthesia Additional Past Anesthesia/Blood Transfusion Reaction / Comment(s): Slow to wake up, hx. of "fever" after 2 surgeries-once as a kid, other with 6 hour tubal reversal-low grade temp, thought was from anesthesia, has never heard of malignant hyperthermia & no family hx of, BP dropped after last kyphoplasty. Mom has low O2 sats after surgery.. Past Psychological History: Anxiety Smoking Status: Never smoker Past Alcohol Use History: Rare Past Drug Use History: None Reported - Past Family History Mother Family Medical History: Cancer Additional Family Medical History / Comment(s): Breast cancer. Father Family Medical History: COPD, Dementia, Neurologic Disorder Additional Family Medical History / Comment(s): Parkinson's disease. Daughter(s) Family Medical History: Pulmonary Embolus General Exam Limitations: no limitations General appearance: alert, in no apparent distress Head exam: Present: normocephalic Eye exam: Present: normal appearance Neck exam: Present: normal inspection Respiratory exam: Present: normal lung sounds bilaterally Cardiovascular Exam: Present: regular rate, normal rhythm Expanded Peripheral pulses: 2+: Dorsalis Pedis (R), Dorsalis Pedis (L) GI/Abdominal exam: Present: soft. Absent: tenderness Extremities exam: Present: tenderness (Mild tenderness to the right lower medial thigh. No swelling. No erythema. No warmth. Distally extremity is neurovascular intact. No knee pain.). Absent: pedal edema, calf tenderness Neurological exam: Present: alert. Absent: motor sensory deficit Psychiatric exam: Present: normal affect, normal mood Skin exam: Present: normal color Course Vital Signs 08/08/23 18:18 Temperature 98 F Pulse Rate 100 Respiratory 20 Rate Blood Pressure 123/82 O2 Sat by Pulse 98 Oximetry Medical Decision Making - Medical Decision Making Was pt. sent in by a medical professional or institution ([facility], SMALL ENGINE TECHNICIAN, urgent care, hospital, or retirement...) When possible be specific @ -No Did you speak to anyone other than the patient for history (EMS, parent, family, police, friend...)? What history was obtained from this source @ -No Did you review nursing and triage notes (agree or disagree)? Why? @ -I reviewed and agree with nursing and triage notes Were old charts reviewed (outside hosp., previous admission, EMS record, old EKG, old radiological studies, urgent care reports/EKG's, retirement records)? Report findings @ -No old charts were reviewed Differential Diagnosis (chest pain, altered mental status, abdominal pain women, abdominal pain men, vaginal bleeding, weakness, fever, dyspnea, syncope, headache, dizziness, GI bleed, back pain, seizure, CVA, palpatations, mental health, musculoskeletal)? @ -Differential Musculoskeletal Muscular strain, contusion, ligament sprain, fracture, arthritis, septic arthritis, bursitis, cellulitis, muscle spasm, nerve compression, DVT, arterial occlusion, herpes zoster, electrolyte abnormality, tumor.... This is not meant to be in all inclusive list EKG interpreted by me (3pts min.). @ -As above X-rays interpreted by me (1pt min.). @ -None done CT interpreted by me (1pt min.). @ -None done U/S interpreted by me (1pt. min.). @ -Report reviewed What testing was considered but not performed or refused? (CT, X-rays, U/S, labs)? Why? @ -None What meds were considered but not given or refused? Why? @ -None Did you discuss the management of the patient with other professionals (professionals i.e. [facility], SMALL ENGINE TECHNICIAN, lab, RT, psych nurse, social work case manager, hash slinger, teacher, disability hearing officer, test case developer)? Give summary @ -No Was smoking cessation discussed for >3mins.? @ -No Was critical care preformed (if so, how long)? @ -No Were there social determinants of health that impacted care today? How? (Homelessness, low income, unemployed, alcoholism, drug addiction, transportation, low edu. Level, literacy, decrease access to med. care, shelter, rehab)? @ -No Was there de-escalation of care discussed even if they declined (Discuss DNR or withdrawal of care, Hospice)? DNR status @ -No What co-morbidities impacted this encounter? (DM, HTN, Smoking, COPD, CAD, Cancer, CVA, ARF, Chemo, Hep., AIDS, mental health diagnosis, sleep apnea, morbid obesity)? @ -None Was patient admitted / discharged? Hospital course, mention meds given and route, prescriptions, significant lab abnormalities, going to OR and other pertinent info. @ -Patient reevaluated on results and updated. Ultrasound negative for DVT. Patient will be discharged recommended follow-up with orthopedic doctor, Dr. Han. Patient is comfortable with this. Undiagnosed new problem with uncertain prognosis? @ -No Drug Therapy requiring intensive monitoring for toxicity (Heparin, Nitro, Insulin, Cardizem)? @ -No Were any procedures done? @ -No Diagnosis/symptom? @ -Leg pain Acute, or Chronic, or Acute on Chronic? @ -Acute Uncomplicated (without systemic symptoms) or Complicated (systemic symptoms)? @ -default Side effects of treatment? @ -No Exacerbation, Progression, or Severe Exacerbation? @ -No Poses a threat to life or bodily function? How? (Chest pain, USA, SC, pneumonia, PE, COPD, DKA, ARF, appy, cholecystitis, CVA, Diverticulitis, Homicidal, Suicidal, threat to staff... and all critical care pts) @ -No Disposition Clinical Impression: Leg pain Disposition: HOME SELF-CARE Condition: Stable Instructions (If sedation given, give patient instructions): Leg Pain (ED) Additional Instructions: Please follow-up with your primary care physician and orthopedic doctor in the next couple days for recheck. Return for increased pain, redness, swelling, fever, worsening or change in symptoms or other concerns. Is patient prescribed a controlled substance at d/c from ED?: No Referrals: Nicholas Becerra MD [Primary Care Provider] - 1-2 days Larry Han MD [STAFF PHYSICIAN] - 1-2 days Time of Disposition: 20:33
--- NOTE | 2023-08-08 20:10 | US ---
EXAMINATION TYPE: US venous doppler duplex LE RT DATE OF EXAM: 08/08/2023 7:59 PM COMPARISON: NONE CLINICAL INDICATION: Female, 58 years old with history of pain; Right inner thigh pain. No injury. No redness or swelling. No hx DVT. Not on blood thinners. SIDE PERFORMED: Right TECHNIQUE: The lower extremity deep venous system is examined utilizing real time linear array sonog iesha with graded compression, doppler sonography and color-flow sonography. VESSELS IMAGED: Common Femoral Vein Deep Femoral Vein Greater Saphenous Vein * Femoral Vein Popliteal Vein Small Saphenous Vein * Proximal Calf Veins (* superficial vessels) Grayscale, color doppler, spectral doppler imaging performed of the deep veins of the lower extremiti es. There is normal flow, compressibility, vascular waveforms. Right Leg: Negative for DVT IMPRESSION: No evidence of right lower extremity DVT.
[2023-08-08 20:46] VITALS: BP 104/71; PULSE 94; RESP 16
== END 2023-08-08 21:18 | disposition home or self-care (01) ==
LOC: EC 18:17
DX: M79.604 Pain in right leg (principal); E11.9 Type 2 diabetes mellitus without complications; K21.9 Gastro-esophageal reflux disease without esophagitis; E78.5 Hyperlipidemia, unspecified; I10 Essential (primary) hypertension; F41.9 Anxiety disorder, unspecified; Z79.84 Long term (current) use of oral hypoglycemic drugs; Z79.899 Other long term (current) drug therapy; Z91.041 Radiographic dye allergy status; Z88.5 Allergy status to narcotic agent; Z91.013 Allergy to seafood; Z91.030 Bee allergy status; Z88.8 Allergy status to other drugs, medicaments and biological substances
CPT/HCPCS: 93971; 99284; 96372; J1885

== ENCOUNTER → 2024-02-10 | Outpatient (CLI) | payer BC ==
[2024-02-10 11:22] VITALS: BP 129/88; PULSE 89; RESP 16; TEMP 98.3
--- NOTE | 2024-02-10 12:24 | P.HPOB ---
History of Present Illness H&P Date: 02/10/24 Chief Complaint: The patient is here for her routine gynecologic exam and ma mmogram. This is a 59-year-old -0-1-4 with an LMP of 1998. She is status post MARY ANN and LSO for benign reasons. She is without gynecologic complaints. Her PCP started her on Fosamax for her osteopenia with bone fractures. Started this about 1 year ago. Review of Systems The patient has gained 10 pounds over the last year. She recently restarted taking Ozempic. She is hoping to lose weight again. She denies respiratory, cardiac, or G.I. problems. Past Medical History Past Medical History: Diabetes Mellitus, Eye Disorder, Fibromyalgia, GERD/Reflux, Hyperlipidemia, Hypertension, Musculoskeletal Disorder, Rheumatoid Arthritis (RA), Skin Disorder Additional Past Medical History / Comment(s): Hyperparathyroidism improved after parathyroidectomy, seasonal allergies, glaucoma, osteopenia, difficulty swallowing pills, osteoporosis, rosacea. 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 Previous left oophorectomy for a benign teratoma. History of Any Multi-Drug Resistant Organisms: None Reported Date of last positivie culture/infection: 2016 MDRO Source:: nasal swab positive Past Surgical History: Appendectomy, Back Surgery, Cholecystectomy, Hysterectomy, Joint Replacement, Orthopedic Surgery, Tubal Ligation Additional Past Surgical History / Comment(s): Tubal reversal & then another tubal, right knee arthroscopy, bilateral carpal tunnel repair, total adominal hysterectomy with left oophorectomy, right salpingectomy, VTP, bilateral total knee replacements, parathyroid tumor removed - benign, laser eye surgery. Kyphoplasty back surgery Past Anesthesia/Blood Transfusion Reactions: Previous Problems w/ Anesthesia Additional Past Anesthesia/Blood Transfusion Reaction / Comment(s): Slow to wake up, hx. of "fever" after 2 surgeries-once as a kid, other with 6 hour tubal reversal-low grade temp, thought was from anesthesia, has never heard of malignant hyperthermia & no family hx of, BP dropped after last kyphoplasty. Mom has low O2 sats after surgery.. Past Psychological History: Anxiety Smoking Status: Never smoker Past Alcohol Use History: Rare (1 drink per year.) Past Drug Use History: None Reported Additional History: She has been since 1993 and this is her second marriage. - Past Family History Mother Family Medical History: Cancer Additional Family Medical History / Comment(s): Breast cancer. Father Family Medical History: COPD, Dementia, Neurologic Disorder Additional Family Medical History / Comment(s): Parkinson's disease. Daughter(s) Family Medical History: Pulmonary Embolus Medications and Allergies Home Medications Medication Instructions Recorded Confirmed Type Hydroxychloroquine Sulfate 400 mg PO DAILY 11/11/15 02/10/24 History [Plaquenil] Losartan Potassium [Cozaar] 100 mg PO QAM 11/11/15 02/10/24 History amLODIPine [Norvasc] 5 mg PO QAM 11/11/15 02/10/24 History Timolol 0.5% Ophth Soln [Timoptic 1 drop BOTH EYES BID 08/22/17 02/10/24 History 0.5% Ophth Soln] Atorvastatin [Lipitor] 10 mg PO HS 02/02/19 02/10/24 History Metoprolol Tartrate [Lopressor] 12.5 mg PO QAM 12/06/20 02/10/24 History Semaglutide [Ozempic] 1 mg SQ SA 03/21/21 02/10/24 History buPROPion HCL [Wellbutrin XL] 150 mg PO QAM 03/21/21 02/10/24 History Cyclobenzaprine HCl 10 mg PO TID PRN 7 Days #21 tab 09/16/22 02/10/24 Rx Acetaminophen [Tylenol Extra 500 mg PO DIRECTED 11/13/22 02/10/24 History Strength] Doxycycline [Vibramycin] 50 mg PO DAILY 11/13/22 02/10/24 History Omeprazole [PriLOSEC] 20 mg PO DAILY 11/13/22 02/10/24 History Triamcinolone 0.1% Cream [Kenalog 1 applicatio TOPICAL BID PRN #30 gm 07/08/23 02/10/24 Rx 0.1% Cream] Cetirizine HCl [Zyrtec] 10 mg PO DAILY 02/10/24 02/10/24 History Cholecalciferol [Vitamin D3 (25 25 mcg PO DAILY 02/10/24 02/10/24 History Mcg = 1000 Iu)] aMILoride-HCTZ 5-50 mg [Moduretic 1 tab PO DAILY 02/10/24 02/10/24 History 5-50] metroNIDAZOLE [metroNIDAZOLE 0.75%] 1 applic TOPICAL DIRECTED 02/10/24 02/10/24 History Allergies Allergy/AdvReac Type Severity Reaction Status Date / Time iodine Allergy Swelling Verified 02/10/24 11:18 latanoprost Allergy Itching Verified 02/10/24 11:18 morphine Allergy Rash/Hives Verified 02/10/24 11:18 shellfish derived [Shellfish] Allergy Anaphylaxis Verified 02/10/24 11:18 venom-honey bee Allergy Anaphylaxis Verified 02/10/24 11:18 [bee venom (honey bee)] codeine AdvReac Nausea & Verified 02/10/24 11:18 Vomiting Iodinated Contrast Media AdvReac Unknown Verified 02/10/24 11:18 [Iodinated Contrast- Oral and IV Dye] labetalol AdvReac "pinging Verified 02/10/24 11:18 in head" metal brittany AdvReac fever Uncoded 02/10/24 11:18 Exam Vital Signs Temp Pulse Resp BP Pulse Ox 02/10/24 11:20 98.3 F 89 16 129/88 97 Intake and Output 02/09/24 02/10/24 02/10/24 22:59 06:59 14:59 Other: Weight 106.594 kg Height 5 feet 4 inches, weight 235 pounds, BMI 40.3. This is a well-developed well-nourished white female who is alert and oriented times 3 in no acute distress. HEENT: Within normal limits. NECK: Supple without mass or thyromegaly. CHEST AND LUNGS: Clear to auscultation. HEART: Regular rate and rhythm. BREASTS: Are without mass or discharge. AXILLARY EXAM: Negative for adenopathy. BACK: Negative for CVA tenderness. ABDOMEN: Soft, nontender, without palpable masses. PELVIC EXAM: External genitalia appears normal with mild atrophy. Vagina appears normal with mild atrophy. There is no evidence of prolapse. Bimanual examination is negative for mass or tenderness. RECTAL EXAM: Rectovaginal exam is negative for mass or tenderness and is negative for occult blood. EXTREMITIES: Nontender. IMPRESSION: 1. 59-year-old menopausal female status post MARY ANN and LS0 for benign reasons, with normal gynecologic exam. 2. History of osteopenia with bone fractures and is currently on Fosamax thro [facility] her PCP or barrow worker. She has used Fosamax since 2022. PLAN: 1. Pap smears have been discontinued. 2. Self breast awareness was discussed with the patient. We have also discussed symptoms associated with inflammatory breast cancer. 3. Screening mammogram was done today. 4. Osteoporosis prevention was discussed. I have stressed the importance of adequate calcium, vitamin D and regular exercise. Recommended amounts of calcium and vitamin D were also discussed. She will continue Fosamax as prescribed by her barrow worker or PCP. She plans on doing the bone density testing in the near future through her other doctor. 5. Colorectal cancer screening was discussed. She states she is doing this with Cologuard testing through her PCP. 6. She was advised to return in one year for her annual well woman exam.
--- NOTE | 2024-02-11 09:49 | MM ---
Reason for Exam: Screening (asymptomatic). Last mammogram was performed 1 year(s) and 3 month(s) ago. Patient History: Menarche at age 10. First Full-Term at age 21. Left ovary removed at age 34. Hysterectomy at age 34. Postmenopausal. Mother had breast cancer, age 79. Risk Values: Yoli 5 year model risk: 2.8%. NCI Lifetime model risk: 13.2%. Prior Study Comparison: 05/10/2020 Bilateral Screening Mammogram, [facility]. 08/28/2021 Bilateral Screening Mammogram, [facility]. 11/13/2022 Bilateral MG 3D screening mammo w/cad, [facility]. Tissue Density: There are scattered areas of fibroglandular density. Findings: Analyzed By CAD. There is no suspicious group of microcalcifications or new suspicious mass in either breast. Benign appearing calcifications. Overall Assessment: Benign, BI-RAD 2 Management: Screening Mammogram of both breasts in 1 year. . Patient should continue monthly self-breast exams. A clinical breast exam by your physician is recommended on an annual basis. This exam should not preclude additional follow-up of suspicious palpable abnormalities. Note on Yoli scores and lifetime risk: 1. A Yoli score greater than 3% is considered moderate risk. If this is the case, consider specialist referral to assess eligibility for a risk reducing agent. 2. If overall lifetime risk for the development of breast cancer is 20% or higher, the patient may qualify for future screening with alternating mammogram and breast MRI. Electronically signed and approved by: Brock Jean-Baptiste M.D. Radiologis
== END ==
LOC: WWCWWP 10:45
PROVIDERS: ATTEND Obstetrics & Gynecology
DX: Z12.31 Encounter for screening mammogram for malignant neoplasm of breast (principal); R92.323 Mammographic fibroglandular density, bilateral breasts; M85.80 Other specified disorders of bone density and structure, unspecified site; M81.0 Age-related osteoporosis without current pathological fracture; Z78.0 Asymptomatic menopausal state; Z80.3 Family history of malignant neoplasm of breast; Z88.8 Allergy status to other drugs, medicaments and biological substances; Z88.5 Allergy status to narcotic agent; Z91.013 Allergy to seafood; Z91.041 Radiographic dye allergy status; Z91.030 Bee allergy status; Z90.710 Acquired absence of both cervix and uterus
CPT/HCPCS: 77063; 77067

== ENCOUNTER 2024-11-14 21:46 | Emergency (ER) | payer BC ==
[2024-11-14 22:00] VITALS: RESP 16; TEMP 98.2
--- NOTE | 2024-11-14 22:17 | ED ---
Lower Extremity Injury HPI - General Chief Complaint: Extremity Injury, Lower Stated Complaint: knee pain Time Seen by Provider: 11/14/24 21:48 Source: patient, RN notes reviewed Mode of arrival: EMS Limitations: physical limitation - History of Present Illness Initial Comments: 59-year-old female presenting for left knee injury 1 hour ago. States she stepped up from a sitting position in her kitchen and felt pain in the back of her left knee. Her knee buckled and she fell on her side. States she did not hit her head or lose consciousness. States she attempted to bear weight but is unable to which prompted her to call EMS. States she is having pain in the posterior and lateral aspect of the knee. - Related Data Home Medications Medication Instructions Recorded Confirmed Hydroxychloroquine Sulfate 400 mg PO DAILY 11/11/15 02/10/24 [Plaquenil] Losartan Potassium [Cozaar] 100 mg PO QAM 11/11/15 02/10/24 amLODIPine [Norvasc] 5 mg PO QAM 11/11/15 02/10/24 Timolol 0.5% Ophth Soln [Timoptic 1 drop BOTH EYES BID 08/22/17 02/10/24 0.5% Ophth Soln] Atorvastatin [Lipitor] 10 mg PO HS 02/02/19 02/10/24 Metoprolol Tartrate [Lopressor] 12.5 mg PO QAM 12/06/20 02/10/24 Semaglutide [Ozempic] 1 mg SQ SA 03/21/21 02/10/24 buPROPion HCL [Wellbutrin XL] 150 mg PO QAM 03/21/21 02/10/24 Acetaminophen [Tylenol Extra 500 mg PO DIRECTED 11/13/22 02/10/24 Strength] Doxycycline [Vibramycin] 50 mg PO DAILY 11/13/22 02/10/24 Omeprazole [PriLOSEC] 20 mg PO DAILY 11/13/22 02/10/24 Cetirizine HCl [Zyrtec] 10 mg PO DAILY 02/10/24 02/10/24 Cholecalciferol [Vitamin D3 (25 25 mcg PO DAILY 02/10/24 02/10/24 Mcg = 1000 Iu)] aMILoride-HCTZ 5-50 mg [Moduretic 1 tab PO DAILY 02/10/24 02/10/24 5-50] metroNIDAZOLE [metroNIDAZOLE 0.75%] 1 applic TOPICAL DIRECTED 02/10/24 02/10/24 Previous Rx's Medication Instructions Recorded Cyclobenzaprine HCl 10 mg PO TID PRN 7 Days #21 tab 09/16/22 Triamcinolone 0.1% Cream [Kenalog 1 applicatio TOPICAL BID PRN #30 gm 07/08/23 0.1% Cream] HYDROcodone/APAP 5-325MG [Woodford 5] 1 each PO Q6HR PRN #12 tab 11/15/24 Allergies Allergy/AdvReac Type Severity Reaction Status Date / Time iodine Allergy Swelling Verified 11/14/24 21:57 latanoprost Allergy Itching Verified 11/14/24 21:57 morphine Allergy Rash/Hives Verified 11/14/24 21:57 shellfish derived [Shellfish] Allergy Anaphylaxis Verified 11/14/24 21:57 venom-honey bee Allergy Anaphylaxis Verified 11/14/24 21:57 [bee venom (honey bee)] codeine AdvReac Nausea & Verified 11/14/24 21:57 Vomiting Iodinated Contrast Media AdvReac Unknown Verified 11/14/24 21:57 [Iodinated Contrast- Oral and IV Dye] labetalol AdvReac "pinging Verified 11/14/24 21:57 in head" metal brittany AdvReac fever Uncoded 11/14/24 21:57 Review of Systems ROS Statement: Those systems with pertinent positive or pertinent negative responses have been documented in the HPI. ROS Other: All systems not noted in ROS Statement are negative. Past Medical History Past Medical History: Diabetes Mellitus, Eye Disorder, Fibromyalgia, GERD/Reflux, Hyperlipidemia, Hypertension, Musculoskeletal Disorder, Rheumatoid Arthritis (RA), Skin Disorder Additional Past Medical History / Comment(s): Hyperparathyroidism improved after parathyroidectomy, seasonal allergies, glaucoma, osteopenia, difficulty swallowing pills, osteoporosis, rosacea. 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 Previous left oophorectomy for a benign teratoma. History of Any Multi-Drug Resistant Organisms: None Reported Date of last positivie culture/infection: 2017 MDRO Source:: nasal swab positive Past Surgical History: Appendectomy, Back Surgery, Cholecystectomy, Hysterectomy, Joint Replacement, Orthopedic Surgery, Tubal Ligation Additional Past Surgical History / Comment(s): Tubal reversal & then another tubal, right knee arthroscopy, bilateral carpal tunnel repair, total adominal hysterectomy with left oophorectomy, right salpingectomy, VTP, bilateral total knee replacements, parathyroid tumor removed - benign, laser eye surgery. Kyphoplasty back surgery Past Anesthesia/Blood Transfusion Reactions: Previous Problems w/ Anesthesia Additional Past Anesthesia/Blood Transfusion Reaction / Comment(s): Slow to wake up, hx. of "fever" after 2 surgeries-once as a kid, other with 6 hour tubal reversal-low grade temp, thought was from anesthesia, has never heard of malignant hyperthermia & no family hx of, BP dropped after last kyphoplasty. Mom has low O2 sats after surgery.. Past Psychological History: Anxiety Smoking Status: Never smoker Past Alcohol Use History: Rare Past Drug Use History: None Reported - Past Family History Mother Family Medical History: Cancer Additional Family Medical History / Comment(s): Breast cancer. Father Family Medical History: COPD, Dementia, Neurologic Disorder Additional Family Medical History / Comment(s): Parkinson's disease. Daughter(s) Family Medical History: Pulmonary Embolus General Exam Limitations: physical limitation General appearance: alert, in no apparent distress Head exam: Present: atraumatic, normocephalic, normal inspection Eye exam: Present: normal appearance, PERRL, EOMI. Absent: scleral icterus, conjunctival injection, periorbital swelling Left Upper Leg exam: Present: normal inspection, full ROM. Absent: tenderness, swelling Knee exam: Present: normal inspection, tenderness (Popliteal and lateral tenderness). Absent: full ROM (Limited range of motion of the left knee due to pain), swelling, abrasion, laceration, dislocation, erythema, effusion, pain/laxity with valgus, pain/laxity with varus Lower Leg exam: Present: normal inspection, full ROM. Absent: tenderness, swelling Ankle exam: Present: normal inspection, full ROM. Absent: tenderness, swelling Foot/Toe exam: Present: normal inspection, full ROM. Absent: tenderness, swelling Neurovascular tendon exam: Present: no vascular compromise. Absent: pulse deficit, abnormal cap refill, sensory deficit Neurological exam: Present: alert, oriented X3 Psychiatric exam: Present: normal affect, normal mood Skin exam: Present: warm, dry, intact, normal color. Absent: rash Course Vital Signs 11/14/24 21:57 Temperature 98.2 F Pulse Rate 90 Respiratory 16 Rate Blood Pressure 116/78 O2 Sat by Pulse 98 Oximetry Medical Decision Making - Medical Decision Making Was pt. sent in by a medical professional or institution (, [facility], CERTIFIED DENTAL ASSISTANT, urgent care, hospital, or halfway...) When possible be specific @ -No Did you speak to anyone other than the patient for history (EMS, parent, family, police, friend...)? What history was obtained from this source @ -No Did you review nursing and triage notes (agree or disagree)? Why? @ -I reviewed and agree with nursing and triage notes Were old charts reviewed (outside hosp., previous admission, EMS record, old EKG, old radiological studies, urgent care reports/EKG's, halfway records)? Report findings @ -No old charts were reviewed Differential Diagnosis (chest pain, altered mental status, abdominal pain women, abdominal pain men, vaginal bleeding, weakness, fever, dyspnea, syncope, headache, dizziness, GI bleed, back pain, seizure, CVA, palpatations, mental health, musculoskeletal)? @ -Differential Musculoskeletal Muscular strain, contusion, ligament sprain, fracture, arthritis, septic arthritis, bursitis, cellulitis, muscle spasm, nerve compression, DVT, arterial occlusion, herpes zoster, electrolyte abnormality, tumor.... This is not meant to be in all inclusive list EKG interpreted by me (3pts min.). @ -None X-rays interpreted by me (1pt min.). @ -X-ray left knee reveals mildly displaced fracture proximal fibula CT interpreted by me (1pt min.). @ -None done U/S interpreted by me (1pt. min.). @ -None done What testing was considered but not performed or refused? (CT, X-rays, U/S, labs)? Why? @ -None What meds were considered but not given or refused? Why? @ -None Did you discuss the management of the patient with other professionals (professionals i.e. [facility] [place], CERTIFIED DENTAL ASSISTANT, lab, RT, psych nurse, manager social services, coating inspector, teacher, chief security officer, protective services case worker)? Give summary @ -No Was smoking cessation discussed for >3mins.? @ -No Was critical care preformed (if so, how long)? @ -No Were there social determinants of health that impacted care today? How? (Homelessness, low income, unemployed, alcoholism, drug addiction, transportation, low edu. Level, literacy, decrease access to med. care, shelter, rehab)? @ -No Was there de-escalation of care discussed even if they declined (Discuss DNR or withdrawal of care, Hospice)? DNR status @ -No What co-morbidities impacted this encounter? (DM, HTN, Smoking, COPD, CAD, Cancer, CVA, ARF, Chemo, Hep., AIDS, mental health diagnosis, sleep apnea, morbid obesity)? @ -None Was patient admitted / discharged? Hospital course, mention meds given and route, prescriptions, significant lab abnormalities, going to OR and other pertinent info. @ -Discharge. 59-year-old female presenting for left knee injury prior to arrival. She is having pain in the lateral and popliteal aspect of left knee. She is unable to bear weight. Neurovascularly intact. Provided with dose of Toradol and Norflex for supportive care. X-ray left knee reveals mildly displaced fracture of proximal fibula. Discussed results with patient. Knee immobilizer placed. Patient states she is unable to use crutches and has a walker and wheelchair at home that she will use. States she follows with Dr. Han and will follow-up with him this week. Appropriate return precautions and supportive care discussed. Patient was provided with short course of Woodford for pain. Case was discussed with my ED attending Dr. Zhang. Undiagnosed new problem with uncertain prognosis? @ -No Drug Therapy requiring intensive monitoring for toxicity (Heparin, Nitro, Insulin, Cardizem)? @ -No Were any procedures done? @ -No Diagnosis/symptom? @ -Left proximal fibula fracture Acute, or Chronic, or Acute on Chronic? @ -Acute Uncomplicated (without systemic symptoms) or Complicated (systemic symptoms)? @ -Uncomplicated Side effects of treatment? @ -No Exacerbation, Progression, or Severe Exacerbation? @ -No Poses a threat to life or bodily function? How? (Chest pain, [place], NH, pneumonia, PE, COPD, DKA, ARF, appy, cholecystitis, CVA, Diverticulitis, Homicidal, Suicidal, threat to staff... and all critical care pts) @ -No Disposition Clinical Impression: Fracture of proximal end of left fibula Disposition: HOME SELF-CARE Condition: Stable Instructions (If sedation given, give patient instructions): Leg Fracture (ED) Additional Instructions: You have a fracture of the proximal fibula. You will need to follow-up with Dr. Han in 1 to 3 days. Do not bear weight on the left side. Use the knee immobilizer at all times. Take Woodford as needed for pain. You may also alternate Tylenol and ibuprofen. Please return to the Emergency Department if symptoms worsen or any other concerns. Prescriptions: HYDROcodone/APAP 5-325MG [Woodford 5] 1 each PO Q6HR PRN #12 tab PRN Reason: Pain Is patient prescribed a controlled substance at d/c from ED?: No Referrals: Brock Serna MD [Primary Care Provider] - 1-2 days Time of Disposition: 00:08
[2024-11-14] MEDS: KETOROLAC 15 MG/ML 1 ML VIAL IM STA (22:52)
[2024-11-14] MEDS: ORPHENADRINE 30 MG/ML 2 ML VIAL IM STA (22:54)
--- NOTE | 2024-11-14 23:45 | XR ---
EXAM: XR Left Knee, 3 Views CLINICAL HISTORY: ITS.REASON XR Reason: left knee injury TECHNIQUE: Three views of the left knee. COMPARISON: No relevant prior studies available. FINDINGS: Bones/joints: Mildly displaced fracture of the proximal fibula. LEFT knee arthroplasty. No periprosthetic fracture, loosening, or dislocation. Soft tissues: Unremarkable. IMPRESSION: Mildly displaced fracture of the proximal fibula.
[2024-11-15] MEDS: HYDROcodone/APAP 5-325MG 1 EACH TAB PO STA (00:16)
[2024-11-15 00:25] VITALS: BP 118/76; PULSE 74
== END 2024-11-15 00:24 | disposition home or self-care (01) ==
LOC: EC 21:46
DX: S82.832A Other fracture of upper and lower end of left fibula, initial encounter for closed fracture (principal); Z88.5 Allergy status to narcotic agent; Z91.013 Allergy to seafood; Z91.030 Bee allergy status; Z91.041 Radiographic dye allergy status; Z88.8 Allergy status to other drugs, medicaments and biological substances; W22.8XXA Striking against or struck by other objects, initial encounter
CPT/HCPCS: 73562; 99284; 96372; J2360; J1885